=== PATIENT | female | born 1995 | race Caucasian/White ===

== ENCOUNTER → 2017-10-14 15:21 | Outpatient (CLI) | payer BC, MEDICAID, SELFPAY ==
[2017-10-14 19:20] LABS: Chlamydia Trachomatis by PCR Negative (Negative); Neisserai gonorrhoeae by PCR Negative (Negative); Probe Check PASS; Sample Adequacy Control PASS; Specimen Processing Control PASS
[2017-10-20 15:25] LABS: HPV Reflexed? NOT INDICATED
== END ==
PROVIDERS: Visit Provider Obstetrics & Gynecology
DX: Z12.4 Encounter for screening for malignant neoplasm of cervix (principal); Z11.3 Encounter for screening for infections with a predominantly sexual mode of transmission
CPT/HCPCS: 87491; 87591; 88175; G0145

== ENCOUNTER → 2018-11-24 | Outpatient (CLI) | payer BC, OTHER, SELFPAY | END | disposition home or self-care (01) | LOC: LABSPEC 10:52 | PROVIDERS: Visit Provider Obstetrics & Gynecology | DX: Z12.4 Encounter for screening for malignant neoplasm of cervix (principal) ==

== ENCOUNTER → 2021-01-31 | Outpatient (CLI) | payer OTHER, SELFPAY ==
[2021-02-07 19:45] LABS: HPV Reflexed? NOT INDICATED
== END | disposition home or self-care (01) ==
LOC: LABSPEC 15:52
PROVIDERS: PCP Internal Medicine; Visit Provider Nurse Practitioner Women's Health
DX: Z12.4 Encounter for screening for malignant neoplasm of cervix (principal)
CPT/HCPCS: 88175; G0145

== ENCOUNTER 2021-04-23 07:13 | Outpatient (CLI) | payer OTHER, BC, SELFPAY ==
--- NOTE | 2021-04-23 07:30 | MRI_ITS ---
STUDY: MRI BRAIN WITH AND WITHOUT CONTRAST REASON FOR EXAM: Female, 25 years old. OPTIC DISC EDEMA BILATERAL TECHNIQUE: Standardized multiplanar fat and water weighted pulse sequences were obtained. IV dotarem 23ml was administered for the contrast portion of the examination. COMPARISON: None. FINDINGS: The ventricles so slight slitlike morphology, bilaterally symmetric. Normal white matter tracts of the supratentorial brain. There is no evidence for recent intracranial ischemia or other cause of cytotoxic edema on diffusion weighted imaging (DWI). Normal T2* images of the brain without demonstrated susceptibility artifact. There is no demonstrated hemosiderin stain. Normal bilateral basal ganglia. Normal thalami. There is no extra-axial fluid accumulation. Normal flow voids within the major intracranial circulation suggesting patency by spin echo criteria. Normal venous enhancement. There is no enhancing intra-axial or extra-axial abnormality. Normal meningeal enhancement. Normal vascular enhancement. No abnormal optic disc enhancement. Orbits are notable for mildly increased CSF signal seen within the optic nerve sheath. There is trace flattening of the posterior globe at the optic disc. Normal sella turcica without empty sella. Normal pituitary gland, infundibular stalk, optic chiasm and hypothalamus. Normal tectal plate and pineal gland. Normal midbrain, abdirizak and medulla. Normal cerebellum. Normal basal cisterns. Normal bilateral temporal bones. Normal bilateral internal auditory canals. No demonstrated orbital abnormality, within the constraints of a routine brain study. Normal visualized paranasal sinuses. Normal calvarium and skull base. Normal visualized soft tissue structures. Normal visualized upper cervical spine. MRI/Brain W/WO Contrast IMPRESSION: Findings suggesting a pathologic intracranial hypertension; increased CSF fluid within the optic nerve sheaths and slight flattening the posterior optic discs as well as slitlike morphology of the ventricles. No empty sella. No optic disc enhancement. Electronically Signed: Donn Gallardo DO at 0:31 EST ,
== END 2021-04-23 23:59 | disposition home or self-care (01) ==
PROVIDERS: PCP Internal Medicine; Visit Provider Ophthalmology
DX: H47.10 Unspecified papilledema (principal)
CPT/HCPCS: 70553; A9575

== ENCOUNTER 2021-05-11 08:55 | Outpatient (CLI) | payer OTHER, BC, SELFPAY ==
[2021-05-11 09:15] LABS: Hematocrit 41.4 % (37-47); Hemoglobin 13.6 g/dL (12.0-15.0); Mean Corp Hgb Conc 32.9 g/dL (32-36); Mean Corpuscular Hgb 26.7 pg (27.0-32.0); Mean Corpuscular Volume 81.3 fL (81-99); Mean Platelet Vol. 11.3 fl (6.2-12.0); Platelet Count 215 K/mm3 (150-450); RBC Distribution Width CV 13.3 % (11.6-14.6); RBC Distribution Width SD 39.2 fl (35.1-43.9); Red Blood Count 5.09 M/mm3 (4.2-5.4); White Blood Count 8.2 K/mm3 (4.4-11.0)
--- NOTE | 2021-05-11 09:21 | RAD_ITS ---
PROCEDURE: Fluoroscopic guided Lumbar Puncture. DATE: 05/11/2021 CLINICAL INDICATION: Benign intracranial hypertension PHYSICIAN: Yasmani Dial M.D. MEDICATIONS: 1% lidocaine administered subcutaneously for local anesthesia. ACCESS SITE: Lower posterior back. NEEDLE: 22-gauge spinal needle. SPECIMEN: Approximately 18 mL clear]CSF fluid. FLUOROSCOPY TIME (if supplied): (1:06) minutes/seconds COMPLICATIONS: None immediate. The risks, benefits, and alternatives to the procedure were explained to the patient. The specific risks of bleeding, infection, and neurovascular injury were detailed and accepted. Witnessed informed consent was obtained. The patient was placed on the fluoroscopic table in the prone position. The level for needle entry was determined and marked. The overlying skin was cleaned and prepped in the usual sterile fashion. 2% lidocaine was administered subcutaneously for local anesthesia. Under fluoroscopic guidance a 22-gauge spinal needle was advanced. The thecal sac was entered at the L2-L3 vertebral level. The inner stylet was removed. There was spontaneous flow of clear CSF fluid. Opening pressure was 24 mm. The patient was placed in a reversed Trendelenburg position. Approximately 18 mL of cerebrospinal fluid was collected using gravity. The specimen was collected and submitted to the laboratory for further evaluation. The needle was withdrawn,. Hemostasis was achieved and a sterile dressing placed. The patient tolerated the procedure well without any immediate complications. The patient was placed supine with head elevated and returned to the floor in stable condition. RAD/Dx Lumbar Puncture w/IMG Guide IMPRESSION: Successful fluoroscopic-guided lumbar puncture. Electronically Signed: Yasmani Dial MD at 12:21 EST ,
[2021-05-11 09:43] LABS: ALB/GLOB Ratio 0.8 RATIO (0.9-2.4); AST(SGOT) 12 U/L (15-37); Alanine Aminotransfer ALT/SGPT 22 U/L (13-56); Albumin, Serum 3.4 g/dL (3.2-5.0); Alkaline Phosphatase 106 U/L (45-117); Anion Gap 5 (5-15); BUN 11 mg/dL (7-18); Chloride 107 mmol/L (98-107); Creatinine, Serum 0.91 mg/dL (0.55-1.02); EST Glomerular Filtration Rate 79 mL/min (>60); Est Glom Filt Rate - Afr Amer 96 mL/min (>60); Glucose 90 mg/dL (74-106); Protein, Total 7.4 g/dL (6.4-8.2); Sodium Level 138 mmol/L (136-145); Thyroid Stim Hormone (TSH) 2.26 uIU/mL (0.358-3.74)
[2021-05-11 10:15] VITALS: BP 121/84; PULSE 76; RESP 16; TEMP 36.7; O2SAT 99; BMI 43.4
[2021-05-11] MEDS: Lidocaine 2% (5ml sdv) 5 ML VIAL.MPF INFILT (10:35)
[2021-05-11 11:13] VITALS: BP 113/77; PULSE 70; RESP 16; O2SAT 100
[2021-05-11 12:11] VITALS: BP 129/83; PULSE 66; RESP 16; O2SAT 100
[2021-05-11 12:39] LABS: Glucose Spinal Fluid 50 mg/dL (40-75)
[2021-05-11 12:43] LABS: Appearance CSF (character) CLEAR (Clear); CSF Color COLORLESS (Colorless); Tested Tube # 4
[2021-05-11 12:44] LABS: RBC Count, Spinal Fluid 0 /mm-3 (None seen); White Count, CSF 0 /mm-3 (0 - 5)
[2021-05-11 13:47] LABS: Body Fluid QC Type(s) BF1Q,BF2Q
[2021-05-15 10:14] LABS: Pathologist Review Reviewed
== END 2021-05-11 23:59 | disposition home or self-care (01) ==
PROVIDERS: PCP Internal Medicine; Referring Provider Psychiatry & Neurology Neurology; Visit Provider Psychiatry & Neurology Neurology
DX: G93.2 Benign intracranial hypertension (principal)
CPT/HCPCS: 36415; 62328; 80053; 82945; 84157; 84443; 85027; 87070; 87205; 89050; 89051

== ENCOUNTER 2021-05-14 09:16 | Emergency (ER) | payer OTHER, BC, SELFPAY ==
[2021-05-14 09:16] VITALS: BP 143/96; PULSE 83; RESP 14; TEMP 36.2; O2SAT 95; BMI 43.0
[2021-05-14] MEDS: 0.9% Normal Saline 1,000 ML 999 ML IV (09:58)
[2021-05-14] MEDS: DiphenhydrAMINE 50 MG/ML Syringe 25 MG IV (09:59)
[2021-05-14] MEDS: Metoclopramide 10 MG/2 ML Vial IV (09:59)
[2021-05-14] MEDS: HYDROmorphone 0.5 MG/0.5 ML SYRINGE IV (09:59)
--- NOTE | 2021-05-14 10:08 | EDS_ITS ---
HPI History of Present Illness Chief Complaint: Headache Narrative Narrative: Patient presents with a headache that started yesterday, 2 days ago she had a lumbar puncture for intracranial hypertension. The headache is worse when she stands up. No fevers or chills. No vision changes. She has no back pain. She has no neck pain or stiffness. [facility] Medical History Chronic headaches Seasonal allergies Home Medications levonorgestrel 20 mcg/24 hours (7 yrs) 52 mg intrauterine device 1 insert I NTRAUTERINE ONCE 01/31/21 [History Last Taken Unknown] acetazolamide 500 mg capsule,extended release 500 mg PO .COMPLEX #60 cap 05/03/21 [Rx Last Taken Unknown] Allergy/AdvReac Type Severity Reaction Status Date / Time No Known Allergies Allergy Verified 05/14/21 09:18 Family History Mother Thyroid disorder Grandfather Thyroid disorder Grandmother Lung cancer Other Arthritis Blood clot in vein Cancer Diabetes High cholesterol Hypertension Tourette syndrome Social History household members: significant other and children number of children: 1 current occupational status: employed 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 history of recent travel: No sexually active: Yes Smoking Status: Never smoker alcohol intake: current alcohol intake frequency: a few times a month substance use type: does not use well-balanced diet: daily or most days caffeine: No seatbelt use: always do you feel safe at home: Yes additional social history: nirmala - Agustin GRULLON Narrative Past medical history: Reviewed Medications: Reviewed Social history: Noncontributory Review of systems: All systems negative except as indicated General: No fever Eyes: No visual changes ENT: No upper airway congestion, normal voice Neck: No neck pain Cardiovascular: No chest pain Respiratory: No shortness of breath or cough Gastrointestinal: No abdominal pain, nausea vomiting or diarrhea Genitourinary: No dysuria Musculoskeletal: Denies myalgias no difficulty with ambulation Skin: No rash Neurological: Headache as in HPI Psych: No recent behavioral changes Hematologic: No easy bleeding or easy bruising EXAM Physical Exam Narrative Exam Narrative: Physical exam General: Patient appears uncomfortable Head: Normocephalic, Atraumatic Eyes: Conjunctiva not pale ENT: Moist mucous membranes Neck: Supple, Nontender, No lymphadenopathy Cardiovascular: Regular rate, Regular rhythm Respiratory: No distress, CTA bilaterally Abdomen: Soft, Nontender, Nondistended Back: Nontender, Normal Inspection. Negative for: CVA tenderness Extremities: Nontender, No edema Skin: Normal color, No rash Neurological: Alert, Normal Strength, Normal Sensation Psychological: Normal affect Const Vital Signs: 05/14/21 09:16 Temperature 97.1 F L Temperature Source Temporal Pulse Rate 83 Respiratory Rate 14 Blood Pressure 143/96 H Blood Pressure Mean 111 Pulse Ox 95 Oxygen Delivery Method Room Air MDM MDM MDM Narrative Medical decision making narrative: Patient is given IV medications with only some improvement, I also gave her caffeine. I discussed with anesthesia at this time they are unable to do a blood patch, I then discussed with Dr. Knight from pain management who will do the blood patch in his office today. I will send the patient there. Discharge Plan Triage Chief Complaint: Headache ED Provider: Deion Saleem Dx/Rx/DC Orders Clinical Impression: Headache Instructions: Understanding Headache Pain Prescriptions: No Action Mirena 20 mcg/24 hours (7 yrs) 52 mg intrauterine device 1 insert intrauterine ONCE RF: 0 acetazolamide 500 mg capsule, extended release 500 mg PO .COMPLEX Qty: 60 RF: 2 Primary Care Provider: Elzbieta Deal Referrals: Elzbieta Deal MD [Primary Care Provider] - Leena Knight MD [STAFF PHYSICIAN] - 1 Day (go directly to Dr. Ang's office ) Disposition Disposition: Home, Self Care
[2021-05-14] MEDS: Caffeine 200 MG Tablet 400 MG PO (10:40)
[2021-05-14 10:59] VITALS: PULSE 80; RESP 16
== END 2021-05-14 11:00 | disposition home or self-care (01) ==
PROVIDERS: Emergency Provider Emergency Medicine; PCP Internal Medicine; Visit Provider Emergency Medicine
DX: R51.9 Headache, unspecified (principal); Z98.890 Other specified postprocedural states
CPT/HCPCS: 96361; 96374; 96375; 99284; J7030; A4216

== ENCOUNTER 2021-05-17 07:22 | Outpatient (CLI) | payer OTHER, BC, SELFPAY ==
--- NOTE | 2021-05-17 07:25 | MRI_ITS ---
STUDY: EXAMINATION - MRV BRAIN WITHOUT CONTRAST REASON FOR EXAM: Female, 25 years old. Benign intracranial hypertension, HEADACHES, RECENT LUMBAR PUNCTURE TECHNIQUE: 3D [id number] (TOF) imaging was performed in a 1.5 jennifer MRI scanner. COMPARISON: None. FINDINGS: Normal flow within the superior sagittal sinus. 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 Normal flow within the superficial cortical veins. Normal flow within the paired internal cerebral veins, vein of Tereso and straight sinus. Normal flow within the bilateral transverse and sigmoid sinuses. Normal flow within the bilateral jugular bulbs. MRI/MRV Head Without Contrast IMPRESSION: Normal unenhanced MRV of the brain. Electronically Signed: Domenic Johns MD at 10:25 EST ,
== END 2021-05-17 23:59 | disposition home or self-care (01) ==
LOC: MRI 07:25
PROVIDERS: PCP Internal Medicine; Referring Provider Psychiatry & Neurology Neurology; Visit Provider Psychiatry & Neurology Neurology
DX: G93.2 Benign intracranial hypertension (principal)
CPT/HCPCS: 70544

== ENCOUNTER → 2023-03-26 | Outpatient (CLI) | payer MEDICAID, SELFPAY ==
--- OUTSIDE RECORDS SUMMARY | 2023-03-26 11:18 | XMS RPT_ITS | CCD ---
Author Name Unknown Address [address] [place] [address] Organization [facility] Care Team Providers Care Engine Pilot Name Role Phone Unavailable Unavailable Unavailable Francisco Ghotra Unavailable Unavailable Francisco Ghotra Unavailable Unavailable Conn, Asha C Unavailable Unavailable Conn, Asha C Unavailable Unavailable Matthews, Makayla L Unavailable Unavailable Matthews, Makayla L Unavailable Unavailable Rings, Donovan Unavailable Unavailable Rings, Donovan Unavailable Unavailable No Doctor Assigned, Nodr Unavailable Unavail able No, Physician Primary Care Provider Unavailabl e Kandi Shah Primary Care Provider [phone] Kandi Shah Primary Care Provider ScammonKandi Primary Care Provider Elzbieta Deal Unavailable Unavailable Spring Kandi MUNIZ Primary Care Provider Elzbieta Deal MD Primary Care Provider MONICA, RAQUEL SABRY Referring Unavailable WARNES, ANTOINETTE Attending Unavailable MONICA, RAQUEL SABRY Admitting Unavailable [facility] Primary Care Unavailable MONICA, RAQUEL SABRY Admitting Unavailable ISSAC IBARRA Attending Unavailable [facility] Primary Care Unavailable MONICA, RAQUEL SABRY Referring Unavailable MONICA, RAQUEL SABRY Attending Unavailable MONICA, RAQUEL SABRY Referring Unavailable [facility] Primary Care Unavailable WARNES, ANTOINETTE Attending Unavailable MONICA, RAQUEL SABRY Admitting Unavailable [facility] AT [facility] Primary Care Unavailable MONICA, RAQUEL SABRY Referring Unavailable MONICA, RAQUEL SABRY Referring Unavailable MONICA, RAQUEL SABRY Admitting Unavailable YANI MCKINNEY Attending Unavailable [facility] Unavailable MONICA, RAQUEL SABRY Referring Unavailable MONICA, RAQUEL SABRY Admitting Unavailable ISSAC IBARRA Attending Unavailable [facility] Unavailable ANTOINETTE DAILY Attending Unavailable MONICA, RAQUEL SABRY Referring Unavailable MONICA, RAQUEL SABRY Admitting Unavailable [facility] Unavailable MONICA, RAQUEL SABRY Referring Unavailable EDU MIX Attending Unavailable MONICA, RAQUEL SABRY Admitting Unavailable [facility] Unavailable MONICA, RAQUEL SABRY Referring Unavailable MONICA, RAQUEL SABRY Admitting Unavailable ISSAC IBARRA Attending Unavailable [facility] Unavailable [facility] Unavailable Unavailable Unavailable [facility] SHERRIE FRAZIER Attending Unava ilable [facility] Unavailable DIDI, TABBITHA IGNACIO Referring Unava ilable [facility] Unavailable IDDI, TABBITHA IGNACIO Admitting Unava ilable [facility] Unavailable LUKE TOLBERT Attending Unava ilable KIRAN PUTNAM Attending Unavailable [facility] Unavailable PERRY PONCE JR. Attending Unavailable [facility] Unavailable [facility] Unavailable PERRY PONCE JR. Attending Unavailable Allergies Allergy Classification Reported Allergen(s) Allergy Type Date of Onset Reaction(s) Facility (1 source) No Known Medication Allergies; Translations: [No Known Medication Allergies] Propensity to adverse reactions to drug (disorder) [facility] Repository (20 sources) topiramate; Translations: [topiramate] Drug Allergy 3 Rash [facility] Medications Current Medications Medication Drug Class(es) Dates Sig (Normalized) Sig (Original) acetaminophen 325 mg oral tablet (20 sources) take 2 tablets by mouth every six hours as needed for pain acetaminophen (TYLENOL) 325 MG tablet Take 2 (two) tablets (650 mg total) by mouth every 6 (six) hours as needed for pain . 0 Active amoxicillin 875 mg / clavulanate 125 mg oral tablet (1 source) Penicillin-class Antibacterial Start: 04-30-2018 End: 05-10-2018 take 1 tablet by mouth twice daily amoxicillin-clavul anate (AUGMENTIN) 875-125 mg per tablet Indications: Acute left otitis media , Frontal sinusitis, unspecified chronicity Take 1 (one) tablet by mouth 2 (two) times a day for 10 days . 20 tablet 0 04/30/2018 05/10/2018 Active benzonatate 100 mg oral capsule (20 sources) Non-narcotic Antitussive Start: 02-01-2019 benzonatate (Tessalon Perles) 100 MG capsule Indications: Upper respiratory tract infection, unspecified type Take one or two capsules every 8 hours as needed for cough. Do not chew. . 60 capsule 1 02/01/2019 Active Completed/Discontinued Medications Medication Drug Class(es) Dates Sig (Normalized) Sig (Original) 12 hr acetaZOLAMIDE 500 mg extended release oral capsule (19 sources) Carbonic Anhydrase Inhibitor Start: 09-04-2021 take 1 capsule by mouth every twelve hours acetaZOLAMIDE ER 500 MG Oral Capsule Extended Release 12 Hour TAKE 1 CAPSULE EVERY 12 HOURS- FROM [facility] Quantity: 0 Refills: 0 Ordered: 04-Sep-2021 DO Start : 04-Sep-2021 Active [facility] Problems Active Problems Problem Classification Problem Date Documented Da te Episodic/Chronic Allergic reactions (1 source) Contact dermatitis due to plants; Translations: [Unspecified contact dermatitis due to plants, except food] Episodic Anxiety disorders (13 sources) Anxiety state; Translations: [Anxiety state, unspecified] Chronic Diseases of white blood cells (12 sources) Leukocytosis; Translations: [Leukocytosis, unspecified] Chronic Fracture of lower limb (20 sources) Metatarsal bone fracture; Translations: [Fracture of unspecified metatarsal bone(s), unspecified foot, initial encounter for closed fracture] 08-27-2020 Episodic Headache; including migraine (12 sources) Migraine without aura; Translations: [Chronic migraine without aura, without mention of intractable migraine without mention of status migrainosus] Chronic Headache; including migraine (20 sources) Headache; Translations: [Headache] 08-27-2020 Episodic Immunizations and screening for infectious disease (1 source) Contact with and (suspected) exposure to other viral communicable diseases; Translations: [Exposure to COVID-19 virus] Episodic Influenza (1 source) Influenza due to Influenza A virus; Translations: [Influenza A] Episodic Menstrual disorders (1 source) Missed period; Translations: [Missed period] Chronic Nutritional deficiencies (20 sources) Vitamin D deficiency; Translations: [Vitamin D deficiency, unspecified] Onset: 08-20-2018 08-20-2018 Chronic Other connective tissue disease (1 source) Foot pain; Translations: [Pain in right foot] Episodic Other connective tissue disease (20 sources) Pain in right foot; Translations: [Pain in right foot] Episodic Other connective tissue disease (1 source) 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; Translations: [Plantar fascial fibromatosis] Episodic Other connective tissue disease (1 source) Pain in left foot; Translations: [Pain in left foot] Episodic Other connective tissue disease (10 sources) Spasm; Translations: [Spasm of muscle] Episodic Other eye disorders (3 sources) Swelling around eyes; Translations: [Other specified disorders of eye and adnexa] 09-24-2022 Episodic Other hematologic conditions (12 sources) Microcytosis; Translations: [Other abnormality of red blood cells] Episodic Other nervous system disorders (12 sources) Benign intracranial hypertension; Translations: [Benign intracranial hypertension] Chronic Other non-traumatic joint disorders (2 sources) Acute ankle pain; Translations: [Pain in right ankle and joints of right foot] Episodic Other non-traumatic joint disorders (20 sources) Swollen ankle region; Translations: [Effusion, unspecified ankle] 08-27-2020 Episodic Other non-traumatic joint disorders (2 sources) Pain in right ankle and joints of right foot; Translations: [Pain in right ankle and joints of right foot] Onset: 01-21-2023 Episodic Other nutritional; endocrine; and metabolic disorders (20 sources) Body mass index 40+ - severely obese; Translations: [Body mass index (BMI) 40.0-44.9, adult] Onset: 08-18-2018 08-18-2018 Chronic Other nutritional; endocrine; and metabolic disorders (20 sources) Cholesterol level - finding; Translations: [Lipoprotein deficiency] Onset: 09-15-2018 09-15-2018 Chronic Other nutritional; endocrine; and metabolic disorders (20 sources) Obesity; Translations: [Obesity, unspecified] 08-27-2020 Chronic Other nutritional; endocrine; and metabolic disorders (3 sources) Weight gain; Translations: [Abnormal weight gain] Episodic Other skin disorders (13 sources) Loss of hair; Translations: [Alopecia, unspecified] Episodic Other skin disorders (2 sources) Folliculitis; Translations: [Follicular disorder, unspecified] Episodic Other upper respiratory disease (1 source) Nasal congestion; Translations: [Nasal congestion] Episodic Other upper respiratory infections (4 sources) Frontal sinusitis; Translations: [Sore throat symptom] Episodic Otitis media and related conditions (1 source) Acute left otitis media; Translations: [Acute left otitis media] Episodic Residual codes; unclassified (1 source) Influenza-like symptoms; Translations: [Flu-like symptoms] Episodic Screening and history of mental health and substance abuse codes (10 sources) Screening - NAD; Translations: [Screening for depression] Episodic Spondylosis; intervertebral disc disorders; other back problems (20 sources) Low back pain; Translations: [Lumbago] Episodic Sprains and strains (20 sources) Sprain of right foot; Translations: [Unspecified sprain of right foot, initial encounter] Onset: 01-21-2023 08-27-2020 Episodic Syncope (2 sources) Syncope and collapse; Translations: [Syncope and collapse] Onset: 09-22-2022 Episodic Unclassified (3 sources) Screening status; Translations: [Screening for heart disease] Onset: 08-18-2018 08-18-2018 Past or Other Problems Problem Classification Problem Date Documented Date Episodic/Chronic Malaise and fatigue (20 sources) Fatigue; Translations: [Other fatigue] Onset: 08-18-2018 08-18-2018 Episodic Other eye disorders (2 sources) Other specified disorders of eye and adnexa; Translations: [Other specified disorders of eye and adnexa] Onset: 09-24-2022 Episodic Other inflammatory condition of skin (20 sources) Itching of eye; Translations: [Other general symptoms and signs] Onset: 09-15-2018 09-15-2018 Episodic Other screening for suspected conditions (not mental disorders or infectious disease) (20 sources) Patient encounter status; Translations: [Encounter for screening for cardiovascular disorders] Onset: 08-18-2018 08-18-2018 Episodic Residual codes; unclassified (1 source) Needs influenza immunization; Translations: [Need for influenza vaccination] Episodic Superficial injury; contusion (8 sources) Abrasion, right lower leg, initial encounter; Translations: [Abrasion or friction burn of hip, thigh, leg, and ankle, without mention of infection] Onset: 09-22-2022 Episodic Unclassified (3 sources) Patient encounter status; Translations: [Screening for heart disease] Onset: 08-18-2018 08-18-2018 NEGATED: Highlighted row has not occurred!Residual codes; unclassified (2 sources) Disease Episodic Results Test Name Value Interpretation Reference Range Facil ity Vital Signs Date Time Vital Sign Value Performing Clinician [facility] 02-19-2023 08:52-0500 Body temperature 97.9 [degF] Perry Ponce Jr., DPM Work Phone: [facility] 02-19-2023 08:52-0500 Diastolic blood pressure 66 mm[Hg] Perry Ponce Jr., DPM Work Phone: [facility] 02-19-2023 08:52-0500 Heart rate 84 /min Perry Ponce Jr., DPM Work Phone: [facility] 02-19-2023 08:52-0500 Systolic blood pressure 97 mm[Hg] Perry Ponce Jr., DPM Work Phone: [facility] 01-29-2023 09:30-0500 Body temperature 98.6 [degF] Perry Ponce Jr., DPM Work Phone: [facility] 01-29-2023 09:30-0500 Diastolic blood pressure 70 mm[Hg] Perry Ponce Jr., DPM Work Phone: [facility] 01-29-2023 09:30-0500 Heart rate 92 /min Perry Ponce Jr., DPM Work Phone: [facility] 01-29-2023 09:30-0500 Systolic blood pressure 103 mm[Hg] Perry Ponce Jr., DPM Work Phone: [facility] 01-21-2023 17:27-0500 Body mass index (BMI) [Ratio] 34.28 kg/m2 Luke Tolbert CNP Work Phone: [facility] 01-21-2023 17:27-0500 Body temperature 98.71 [degF] Luke Tolbert CNP Work Phone: [facility] 01-21-2023 17:27-0500 Body weight 87.77 kg Luke Tolbert CNP Work Phone: [facility] 01-21-2023 17:27-0500 Diastolic blood pressure 80 mm[Hg] Luke Tolbert CNP Work Phone: [facility] 01-21-2023 17:27-0500 Heart rate 83 /min Luke Tolbert CNP Work Phone: [facility] 01-21-2023 17:27-0500 Respiratory rate 16 /min Luke Tolbert CNP Work Phone: [facility] 01-21-2023 17:27-0500 SaO2% (BldA) [Mass fraction] 98 % Luke Tolbert CNP Work Phone: [facility] 01-21-2023 17:27-0500 Systolic blood pressure 114 mm[Hg] Luke Tolbert CNP Work Phone: [facility] 09-24-2022 11:27-0400 Body height 160 cm Kiran Putnam DO Work Phone: [facility] 09-24-2022 11:27-0400 Body mass index (BMI) [Ratio] 33.66 kg/m2 Kiran Putnam DO Work Phone: [facility] 09-24-2022 11:27-0400 Body temperature 98.2 [degF] Kiran Putnam DO Work Phone: [facility] 09-24-2022 11:27-0400 Body weight 86.18 kg Kiran Putnam DO Work Phone: [facility] 09-24-2022 11:27-0400 Diastolic blood pressure 78 mm[Hg] Kiran Putnam DO Work Phone: [facility] 09-24-2022 11:27-0400 Heart rate 84 /min Kiran Putnam DO Work Phone: [facility] 09-24-2022 11:27-0400 Respiratory rate 16 /min Kiran Putnam DO Work Phone: [facility] 09-24-2022 11:27-0400 SaO2% (BldA) [Mass fraction] 98 % Kiran Putnam DO Work Phone: [facility] 09-24-2022 11:27-0400 Systolic blood pressure 107 mm[Hg] Kiran Putnam DO Work Phone: [facility] 10-09-2021 13:09-0400 Body height 160.02 cm Elzbieta Deal Work Phone: [facility] Work Phone: 10-09-2021 13:09-0400 Body mass index (BMI) [Ratio] 38.26 kg/m2 Elzbieta Allredabi Work Phone: [facility] Work Phone: 10-09-2021 13:09-0400 Body surface area Derived from formula 2 m2 Elzbieta Allredabi Work Phone: [facility] Work Phone: 10-09-2021 13:09-0400 Body weight 97.98 kg Elzbieta Allredabi Work Phone: [facility] Work Phone: 10-09-2021 13:09-0400 Diastolic blood pressure 76 mm[Hg] Elzbieta Allredabi Work Phone: [facility] Work Phone: 10-09-2021 13:09-0400 Heart rate 87 /min Elzbieta Allredabi Work Phone: [facility] Work Phone: 10-09-2021 13:09-0400 SaO2% (BldA) [Mass fraction] 99 % Elzbieta Deal Work Phone: [facility] Work Phone: 10-09-2021 13:09-0400 Systolic blood pressure 116 mm[Hg] Elzbieta Deal Work Phone: [facility] Work Phone: 09-18-2021 13:35-0400 Body height 160.02 cm Elzbieta Deal Work Phone: [facility] Work Phone: 09-18-2021 13:35-0400 Body mass index (BMI) [Ratio] 38.79 kg/m2 Elzbieta Deal Work Phone: [facility] Work Phone: 09-18-2021 13:35-0400 Body surface area Derived from formula 2.01 m2 Elzbieta Deal Work Phone: [facility] Work Phone: 09-18-2021 13:35-0400 Body weight 99.33 kg Elzbitea Deal Work Phone: [facility] Work Phone: 09-18-2021 13:35-0400 Diastolic blood pressure 76 mm[Hg] Elzbieta Deal Work Phone: [facility] Work Phone: 09-18-2021 13:35-0400 Heart rate 84 /min Elzbieta Deal Work Phone: [facility] Work Phone: 09-18-2021 13:35-0400 SaO2% (BldA) [Mass fraction] 99 % Elzbieta Deal Work Phone: [facility] Work Phone: 09-18-2021 13:35-0400 Systolic blood pressure 110 mm[Hg] Elzbieta Deal Work Phone: [facility] Work Phone: 09-04-2021 12:07-0400 Body height 160.02 cm Elzbieta Deal Work Phone: [facility] Work Phone: 09-04-2021 12:07-0400 Body mass index (BMI) [Ratio] 39.15 kg/m2 Elzbieta Deal Work Phone: [facility] Work Phone: 09-04-2021 12:07-0400 Body surface area Derived from formula 2.02 m2 Elzbieta Deal Work Phone: [facility] Work Phone: 09-04-2021 12:07-0400 Body weight 100.25 kg Elzbieta Deal Work Phone: [facility] Work Phone: 09-04-2021 12:07-0400 Diastolic blood pressure 76 mm[Hg] Elzbieta Deal Work Phone: [facility] Work Phone: 09-04-2021 12:07-0400 Heart rate 83 /min Elzbieta Deal Work Phone: [facility] Work Phone: 09-04-2021 12:07-0400 SaO2% (BldA) [Mass fraction] 98 % Elzbieta Deal Work Phone: [facility] Work Phone: 09-04-2021 12:07-0400 Systolic blood pressure 108 mm[Hg] Elzbieta Allredabi Work Phone: [facility] Work Phone: 07-03-2021 18:05-0400 Body height 160 cm Asha Morocho [employer] SP[employer]NER Work Phone: [facility] 07-03-2021 18:05-0400 Body mass index (BMI) [Ratio] 41.81 kg/m2 Asha Morocho [employer] Work Phone: [facility] 07-03-2021 18:05-0400 Body temperature 97.59 [degF] Asha Morocho [employer]NER Work Phone: [facility] 07-03-2021 18:05-0400 Body weight 107.05 kg Asha Morocho [employer] Work Phone: [facility] 07-03-2021 18:05-0400 Diastolic blood pressure 82 mm[Hg] Asha Morocho [employer]NER Work Phone: [facility] 07-03-2021 18:05-0400 Heart rate 75 /min Asha Morocho [employer] Work Phone: [facility] 07-03-2021 18:05-0400 Respiratory rate 14 /min Asha Morocho [employer] Work Phone: [facility] 07-03-2021 18:05-0400 SaO2% (BldA) [Mass fraction] 98 % Asha Morocho [employer]NER Work Phone: [facility] 07-03-2021 18:05-0400 Systolic blood pressure 113 mm[Hg] Asha Morocho [employer]NER Work Phone: [facility] 01-21-2021 09:36-0500 Body height 157.5 cm Zuri Barajas MD Work Phone: [facility] 01-21-2021 09:36-0500 Body mass index (BMI) [Ratio] 43.9 kg/m2 Zuri Barajas MD Work Phone: [facility] 01-21-2021 09:36-0500 Body temperature 98.1 [degF] Zuri Barajas MD Work Phone: [facility] 01-21-2021 09:36-0500 Body weight 108.86 kg Zuri Barajas MD Work Phone: [facility] 01-21-2021 09:36-0500 Diastolic blood pressure 78 mm[Hg] Zuri Barajas MD Work Phone: [facility] 01-21-2021 09:36-0500 Heart rate 88 /min Zuri Barajas MD Work Phone: [facility] 01-21-2021 09:36-0500 Respiratory rate 16 /min Zuri Barajsa MD Work Phone: [facility] 01-21-2021 09:36-0500 SaO2% (BldA) [Mass fraction] 97 % Zuri Barajas MD Work Phone: [facility] 01-21-2021 09:36-0500 Systolic blood pressure 122 mm[Hg] Zuri Barajas MD Work Phone: [facility] 11-06-2020 07:04-0400 Body temperature 98.4 [degF] Raquel Baldwin Place DPM Work Phone: [facility] 11-06-2020 07:04-0400 Diastolic blood pressure 68 mm[Hg] Raquel Monica DPM Work Phone: [facility] 11-06-2020 07:04-0400 Heart rate 95 /min Raquel Monica DPM Work Phone: [facility] 11-06-2020 07:04-0400 Systolic blood pressure 115 mm[Hg] Raquel Monica DPM Work Phone: [facility] 10-02-2020 07:03-0400 Body temperature 97.9 [degF] Raquel [address] DPM Work Phone: [facility] 10-02-2020 07:03-0400 Diastolic blood pressure 70 mm[Hg] Raquel [address] Place DPM Work Phone: [facility] 10-02-2020 07:03-0400 Heart rate 96 /min Raquel Monica DPM Work Phone: [facility] 10-02-2020 07:03-0400 Systolic blood pressure 109 mm[Hg] Raquel [address] Place DPM Work Phone: [facility] 09-04-2020 07:12-0400 Body height [address] DPM Work Phone: [facility] 09-04-2020 07:12-0400 Body mass index (BMI) [Ratio] 35.43 kg/m2 Raquel Monica DPM Work Phone: [facility] 09-04-2020 07:12-0400 Body temperature 98.2 [degF] Raquel Baldwin Place DPM Work Phone: [facility] 09-04-2020 07:12-0400 Body weight 90.72 kg Raquel Monica DPM Work Phone: [facility] 09-04-2020 07:12-0400 Diastolic blood pressure 80 mm[Hg] Raquel [address] DPM Work Phone: [facility] 09-04-2020 07:12-0400 Heart rate 82 /min Raquel [address] DPM Work Phone: [facility] 09-04-2020 07:12-0400 Systolic blood pressure 117 mm[Hg] Raquel Baldwin Place DPM Work Phone: [facility] 08-28-2020 17:02-0400 Body height 160 cm Chinyere Morrison [employer]NER Work Phone: [facility] 08-28-2020 17:02-0400 Body mass index (BMI) [Ratio] 35.43 kg/m2 Chinyere Morrison [employer] Work Phone: [facility] 08-28-2020 17:02-0400 Body temperature 98.29 [degF] Chinyere Mayaid W[employer]NER Work Phone: [facility] 08-28-2020 17:02-0400 Body weight 90.72 kg Chinyere Morrison [employer]NER Work Phone: [facility] 08-28-2020 17:02-0400 Diastolic blood pressure 71 mm[Hg] Chinyere Morrison W[employer] SP[employer]NER Work Phone: [facility] 08-28-2020 17:02-0400 Heart rate 85 /min Chinyere Morrison [employer]NER Work Phone: [facility] 08-28-2020 17:02-0400 Respiratory rate 16 /min Chinyere Morrison [employer]NER Work Phone: [facility] 08-28-2020 17:02-0400 SaO2% (BldA) [Mass fraction] 97 % Chinyere Morrison [employer]NER Work Phone: [facility] 08-28-2020 17:02-0400 Systolic blood pressure 112 mm[Hg] Chinyere Morrison W[employer]NER Work Phone: [facility] 08-21-2020 12:55-0400 Diastolic blood pressure 58 mm[Hg] Raquel Baldwin Place DPM Work Phone: [facility] 08-21-2020 12:55-0400 Systolic blood pressure 116 mm[Hg] Raquel Baldwin Place DPM Work Phone: [facility] 08-14-2020 18:14-0400 Body height 160 cm Chinyere Morrison [employer]NER Work Phone: [facility] 08-14-2020 18:14-0400 Body mass index (BMI) [Ratio] 35.43 kg/m2 Chinyere Morrison [employer] Work Phone: [facility] 08-14-2020 18:14-0400 Body temperature 97.5 [degF] Chinyere Morrison [employer]NER Work Phone: [facility] 08-14-2020 18:14-0400 Body weight 90.72 kg Chinyere Morrison [employer] Work Phone: [facility] 08-14-2020 18:14-0400 Diastolic blood pressure 84 mm[Hg] Chinyere Morrison [employer]NER Work Phone: [facility] 08-14-2020 18:14-0400 Heart rate 82 /min Chinyereenoc Morrison W[employer]NER Work Phone: [facility] 08-14-2020 18:14-0400 Respiratory rate 16 /min Chinyere Morrison [employer] Work Phone: [facility] 08-14-2020 18:14-0400 SaO2% (BldA) [Mass fraction] 97 % Chinyere Morrison [employer] Work Phone: [facility] 08-14-2020 18:14-0400 Systolic blood pressure 120 mm[Hg] Chinyere Morrison [employer]NER Work Phone: [facility] 09-06-2019 12:42-0400 BMI (Body Mass Index) 45.95 kg/m2 Elzbieta Deal [facility] Work Phone: 09-06-2019 12:42-0400 Body weight 117.65 kg Elzbieta Deal [facility] Work Phone: 09-06-2019 12:42-0400 BP Diastolic 80 mm[Hg] Elzbieta Deal [facility] Work Phone: 09-06-2019 12:42-0400 BP Systolic 114 mm[Hg] Elzbieta Deal [facility] Work Phone: 09-06-2019 12:42-0400 BSA (Body Surface Area) 2.16 m2 Elzbieta Deal [facility] Work Phone: 09-06-2019 12:42-0400 Height 160.02 cm Elzbieta Deal [facility] Work Phone: 09-06-2019 12:42-0400 Pulse (Heart Rate) 72 /min Elzbietaiain Deal [facility] Work Phone: 02-18-2019 16:16-0500 BMI (Body Mass Index) 43.93 kg/m2 [facility] 02-18-2019 16:16-0500 Body Temperature 98.4 [degF] [facility] 02-18-2019 16:16-0500 Body weight 112.49 kg [facility] 02-18-2019 16:16-0500 BP Diastolic 81 mm[Hg] [facility] 02-18-2019 16:16-0500 BP Systolic 111 mm[Hg] [facility] 02-18-2019 16:16-0500 Height 160 cm [facility] 02-18-2019 16:16-0500 Pulse (Heart Rate) 95 /min [facility] 02-18-2019 16:16-0500 Pulse Oximetry 98 % [facility] 02-18-2019 16:16-0500 Respiratory Rate 18 /min [facility] 02-01-2019 17:47-0500 BMI (Body Mass Index) 31.89 kg/m2 [facility] 02-01-2019 17:47-0500 Body Temperature 98.6 [degF] [facility] 02-01-2019 17:47-0500 Body weight 81.65 kg [facility] 02-01-2019 17:47-0500 BP Diastolic 76 mm[Hg] [facility] 02-01-2019 17:47-0500 BP Systolic 104 mm[Hg] [facility] 02-01-2019 17:47-0500 Height 160 cm [facility] 02-01-2019 17:47-0500 Pulse (Heart Rate) 89 /min [facility] 02-01-2019 17:47-0500 Pulse Oximetry 97 % [facility] 02-01-2019 17:47-0500 Respiratory Rate 14 /min [facility] 09-15-2018 08:15-0400 BMI (Body Mass Index) 42.16 kg/m2 [facility] 09-15-2018 08:15-0400 Body Temperature 98.71 [degF] [facility] 09-15-2018 08:15-0400 Body weight 107.96 kg [facility] 09-15-2018 08:15-0400 BP Diastolic 80 mm[Hg] [facility] 09-15-2018 08:15-0400 BP Systolic 113 mm[Hg] [facility] 09-15-2018 08:15-0400 Height 160 cm [facility] 09-15-2018 08:15-0400 Pulse (Heart Rate) 94 /min [facility] 09-15-2018 08:15-0400 Pulse Oximetry 98 % [facility] 09-15-2018 08:15-0400 Respiratory Rate 18 /min [facility] 08-18-2018 08:43-0400 BMI (Body Mass Index) 42.05 kg/m2 [facility] 08-18-2018 08:43-0400 Body Temperature 98.4 [degF] [facility] 08-18-2018 08:43-0400 BP Diastolic 78 mm[Hg] [facility] 08-18-2018 08:43-0400 BP Systolic 113 mm[Hg] [facility] 08-18-2018 08:43-0400 Height 160 cm [facility] 08-18-2018 08:43-0400 Pulse (Heart Rate) 93 /min [facility] 08-18-2018 08:43-0400 Pulse Oximetry 98 % [facility] 08-18-2018 08:43-0400 Weight 107.67 kg [facility] 04-30-2018 17:57-0500 BMI (Body Mass Index) 34.75 kg/m2 Chinyere Morrison [facility] 04-30-2018 17:57-0500 Body Temperature 99.3 [degF] Chinyere Morrison [facility] 04-30-2018 17:57-0500 BP Diastolic 83 mm[Hg[facility] 17:57-0500 BP Systolic 118 mm[Hg] Chinyere Morrison [facility] 04-30-2018 17:57-0500 Height 157.5 cm Chinyere Morrison [facility] 04-30-2018 17:57-0500 Pulse (Heart Rate) 104 /min Chinyere Morrison [facility] 04-30-2018 17:57-0500 Pulse Oximetry 98 % Chinyere Morrison [facility] 04-30-2018 17:57-0500 Respiratory Rate 18 /min Chinyere Morrison [facility] 04-30-2018 17:57-0500 Weight 86.18 kg Chinyere Morrison [facility] Encounters Encounter Date Encounter Type Care Provider Facility Start: 02-19-2023 End: 02-19-2023 ambulatory PERRY PONCE [facility] Start: 02-19-2023 End: 02-19-2023 Office outpatient visit 15 minutes Perry Zane DPM Work Phone: [facility] Procedures Date Procedure Procedure Detail Performing Clinician Start: 01-29-2023 NURSING COMMUNICATIO N - DO NOT USE IN ORDER SETS Perry Ponce DPM Work Phone: Start: 01-21-2021 Sars-cov-2 detection by dna/rna Zuri Barajas MD Work Phone: Start: 01-21-2021 Iadna streptococcus group a amplified probe tq Zuri Barajas MD Work Phone: Start: 08-14-2020 WOUND CARE Chinyere Morrison [employer] Work Phone: Start: 08-14-2020 End: 08-14-2020 Radex ankle complete minimum 3 views Chinyere Morrison [employer] Work Phone: Start: 09-06-2019 25 hydroxy includes fractions if performed Elzbieta Zacoraabi Start: 09-06-2019 Assay of magnesium Virgen nak Zarrabi Start: 09-06-2019 Assay of thyroid stimulating hormone tsh Elzbieta cora Start: 09-06-2019 Assay of zinc Elzbieta Z arrabi Start: 09-06-2019 Blood count complete auto&auto difrntl wbc Elzbieta Zarr Start: 09-06-2019 Comprehensive metabo lic 2000 panel Elzbieta Zarr Start: 09-06-2019 Gonadotropin chorion ic qualitative Elzbieta Zarr Start: 02-18-2019 Adult depression scr eening assessment [facility] Start: 02-01-2019 Streptococcus pyogen es antigen assay Asha Morocho Work Phone: Start: 04-30-2018 Influenza virus A an tigen assay Chinyere Morrison Work Phone: Start: 04-30-2018 Influenza virus B an tigen assay Chinyere Morrison Work Phone: Start: 06-08-2017 Microscopic observat ion [Identifier] in Cervix by Cyto stain [facility] Start: 06-08-2014 Insertion of intraut erine contraceptive device Elzbieta Zarrnoah Work Phone: End: 06-08-2014 Insertion of intrauterine contraceptive device Elzbieta Abreuyuniel Plan of Treatment Date Care Activity Detail Author Start: 02-19-2023 End: 02-19-2023 Patient encounter procedure 02/19/2023 9:00 AM EST Office Visit [facility] [address] [place] [address] Perry Ponce Jr., DPM [address] [place] [address] [facility] Start: 11-08-2022 Influenza vaccination Sequenti al Influenza Vaccine (#1) [facility] Start: 11-08-2021 Influenza vaccination Sequenti al Influenza Vaccine (Season Ended) [facility] Start: 10-30-2021 FUV, Provider: Elzbieta Deal, Status: Pen, Time: 12:30 PM FUV, Provider: Elzbieta Deal, Status: Pen, Time: 12:30 PM -[facility] Work Phone: Start: 10-15-2021 PTRECHADUL, Provider : Maria Fernanda Prieto, Status: Pen, Time: 3:45 PM PTRECHADUL, Provider: Maria Fernanda Prieto, Status: Pen, Time: 3:45 [facility]: Start: 10-11-2021 PTFUADULT4, Provider : Maria Fernanda Prieto, Status: Pen, Time: 4:15 PM PTFUADULT4, Provider: Maria Fernanda Prieto, Status: Pen, Time: 4:15 PM [facility] Work Phone: Start: 10-09-2021 FUV, Provider: Elzbieta Deal, Status: Pen, Time: 1:00 PM FUV, Provider: Elzbieta Deal, Status: Pen, Time: 1:00 PM [facility] Work Phone: Start: 10-08-2021 [email or web address], Provider : Maria Fernanda Prieto, Status: Pen, Time: 3:30 PM PTFUADULT4, Provider: Maria Fernanda Prieto, Status: Pen, Time: 3:30 PM [facility] Work Phone: Start: 10-03-2021 PTFUADULT4, Provider : Maria Fernanda Prieto, Status: Pen, Time: 3:30 PM PTFUADULT4, Provider: Maria Fernanda Prieto, Status: Pen, Time: 3:30 PM [facility] Work Phone: Start: 10-01-2021 PTFUADULT4, Provider : Mari Go, Status: Pen, Time: 7:00 AM PTFUADULT4, Provider: Mari Go, Status: Pen, Time: 7:00 AM [facility] Work Phone: Start: 09-28-2021 PTFUADULT4, Provider : Renay Zamarripa, Status: Pen, Time: 7:45 AM PTFUADULT4, Provider: Renay Zamarripa, Status: Pen, Time: 7:45 AM [facility] Work Phone: Start: 09-25-2021 PTEVAADULT, Provider : Maria Fernanda Prieto, Status: Pen, Time: 3:15 PM PTEVAADULT, Provider: Maria Fernanda Prieto, Status: Pen, Time: 3:15 PM [facility] Work Phone: Start: 09-18-2021 FUV, Provider: Elzbieta Deal, Status: Pen, Time: 1:30 PM FUV, Provider: Elzbieta Deal, Status: Pen, Time: 1:30 PM [facility] Work Phone: Start: 11-08-2020 Influenza vaccination [facility] Start: 11-06-2020 End: 11-06-2020 Patient encounter procedure [facility] Start: 10-31-2020 End: 10-31-2020 Patient encounter procedure [facility] MRI Start: 10-19-2020 End: 10-19-2020 ambulatory [facility] Start: 10-17-2020 End: 10-17-2020 ambulatory [facility] Start: 10-12-2020 End: 10-12-2020 ambulatory [facility] Start: 10-10-2020 End: 10-10-2020 ambulatory [facility] Start: 10-05-2020 End: 10-05-2020 ambulatory [facility] Start: 10-03-2020 End: 10-03-2020 ambulatory [facility] Start: 10-03-2020 End: 10-02-2021 MR Foot Right With Contrast MR Foot Right With Contrast Imaging Routine Right foot sprain, subsequent encounter Right foot pain Expected: 10/03/2020, Expires: 10/02/2021 [facility] Work Phone: Immunizations Immunization Date Immunization Notes Care Provider Shira delcid 02-18-2019 influenza, injectabl e, quadrivalent, preservative free [facility] 02-18-2019 influenza, seasonal, injectable Elzbieta Zarrabi Work Phone: [facility] Work Phone: 02-18-2019 flu vacc [id number] 6mos up,PF, sdv (FLUZONE QUAD) injection [facility] 09-29-2000 diphtheria, tetanus toxoids and acellular pertussis vaccine [facility] 09-29-2000 diphtheria, tetanus toxoids and acellular pertussis vaccine, unspecified formulation Elzbieta Zarrabi Work Phone: [facility] Work Phone: 09-29-2000 measles, mumps and rubella virus vaccine [facility] 09-29-2000 poliovirus vaccine, inactivated [facility] 02-28-1997 diphtheria, tetanus toxoids and acellular pertussis vaccine [facility] 02-28-1997 diphtheria, tetanus toxoids and acellular pertussis vaccine, unspecified formulation Elzbieta Zarrabi Work Phone: [facility] Work Phone: 02-28-1997 measles, mumps and rubella virus vaccine [facility] 08-30-1996 hepatitis B vaccine, pediatric or pediatric/adolescent dosage [facility] 05-31-1996 diphtheria, tetanus toxoids and acellular pertussis vaccine [facility] 05-31-1996 diphtheria, tetanus toxoids and acellular pertussis vaccine, unspecified formulation Elzbieta Zarrabi Work Phone: [facility] Work Phone: 05-31-1996 haemophilus influenz ae type b vaccine, conjugate unspecified formulation Elzbieta Zarrabi Work Phone: [facility] Work Phone: 05-31-1996 haemophilus influenz ae type b vaccine, PRP-T conjugate [facility] 05-31-1996 poliovirus vaccine, inactivated [facility] 05-31-1996 trivalent poliovirus vaccine, live, oral Elzbieta Zarrabi Work Phone: [facility] Work Phone: 04-05-1996 diphtheria, tetanus toxoids and acellular pertussis vaccine [facility] 04-05-1996 DTP-Haemophilus influenzae type b conjugate vaccine Elzbieta Zarrabi Work Phone: [facility] Work Phone: 04-05-1996 haemophilus influenz ae type b vaccine, PRP-T conjugate [facility] 04-05-1996 poliovirus vaccine, inactivated [facility] 04-05-1996 trivalent poliovirus vaccine, live, oral Elzbieta Zarrabi Work Phone: [facility] Work Phone: 01-05-1996 diphtheria, tetanus toxoids and acellular pertussis vaccine [facility] 01-05-1996 DTP-Haemophilus influenzae type b conjugate vaccine Elzbieta Deal Work Phone: -[facility] Work Phone: 01-05-1996 haemophilus influenz ae type b vaccine, PRP-T conjugate [facility] 01-05-1996 poliovirus vaccine, inactivated [facility] 01-05-1996 trivalent poliovirus vaccine, live, oral Elzbieta Deal Work Phone: [facility] 1995 hepatitis B vaccine, pediatric or pediatric/adolescent dosage [facility] 1995 hepatitis B vaccine, pediatric or pediatric/adolescent dosage [facility] Payers Date Payer Category Payer Unknown [id number] 2018 Private Health Insurance AETNA A ETNA CHOICE POS/POSII/PREMIER CARE/PREMIER CARE PLUS xxxxxxxxxx 2018-Present xxxxxxxxxx [id number] 2018 Private Health Insurance [id number] 2018 Private Health Insurance [id number] 2018 Private Health Insurance AETNA A ETNA CHOICE POS/POSII/PREMIER CARE/PREMIER CARE PLUS [id number] 2018-Present [phone] [facility] [id number] [place] [address] [id number] 2016 Unknown 1995 Unknown [id number]. 903 1995 Unknown [id number]. 903 1995 Unknown [id number]. 903 1995 Unknown [id number] [id number]. 1995 Unknown [id number] [id number]. 1995 Unknown [id number] [id number]. 1995 Unknown [id number] [id number]. 1995 Unknown [id number] [id number]. 1995 Unknown [id number] [id number]. 1995 Unknown [id number] [id number]. 1995 Unknown [id number] [id number]. 1995 Unknown [id number] [id number]. 1995 Unknown [id number] [id number]. 1995 Unknown [id number] [id number]. 1995 Unknown [id number]. [facility] [id number] Social History Date Type Detail Facility Start: 01-11-2017 End: 03-20-2017 Tobacco smoking status MEIS Unknown if ever smoked [facility] Work Phone: Start: 1995 Sex Assigned At Not on file [employer] Work Phone: Start: 04-30-2018 End: 09-15-2018 Tobacco smoking status NHIS Former smoker [facility] Start: 04-30-2018 Tobacco Comment here and there [facility] Start: 04-30-2018 Alcohol Comment rarely [facility] History of tobacco use Cigarette Smoker [facility] Start: 08-18-2018 End: 02-01-2019 History SDOH [facility] Conne[facility] Start: 08-18-2018 History SDOH Social Connections Get Together 3 [facility] Start: 08-18-2018 End: 02-01-2019 History SDOH Social Connections Bahai 1 [facility] Start: 08-18-2018 End: 02-01-2019 History SDOH Social Connections Membership 2 [facility] Start: 08-18-2018 History SDOH Social Connections Living 7 [facility] Start: 08-18-2018 History SDOH Stress [facility] Start: 02-01-2019 End: 02-19-2023 Alcohol intake Current drinker of alcohol (finding) [facility] Start: 08-14-2020 End: 09-24-2022 Tobacco smoking status NHIS Never smoker [facility] Start: 08-14-2020 End: 09-24-2022 Tobacco use and exposure Never used [facility] Start: 08-14-2020 Alcohol Comment occasionally [facility] Start: 06-23-2021 End: 07-03-2021 Exposure to SARS-CoV-2 (event) Not sure [facility] Start: 08-18-2018 End: 02-18-2019 Former smoker Former smoker [facility] Work Phone: Start: 08-18-2018 End: 02-18-2019 Humiliation, Afraid, Rape, and Kick questionnaire [HARK] [facility] Fear of Current or Ex-Partner No [facility] Start: 04-30-2018 Gender identity Identifies as female gender (finding) [facility] Start: 04-30-2018 Sexual orientation Heterosexual (fin ding) [facility] NEGATED: Highlighted row - - [facility] Work Phone: Goals Date Patient Goal Desired Activity /State Personal health goal Functional Status Date Assessment Result Facility NEGATED: Highlighted row Functional performance Functional status health issues are not documented Disease [facility] Work Phone: Mental Status Date Assessment Result Facility NEGATED: Highlighted row Cognitive function [Interpretation] Cognitive status health issues are not documented Disease [facility] Work Phone: Clinical Notes 05-06-2010 to 02-19-2023 Perry Ponce Jr., JAYCE - 02/19/2023 8:55 AM Perry Betancourt Jr., JAYCE - 01/29/2023 10:05 AM Luke Mayo, [facility] - 01/21/2023 5:58 PM ESTPatient InstructionsAttachmentsAttachments Note Date & Type Note Facility 02-19-2023 History of Present illness Narrative Right ankle sprain Patient is a pleasant 27-year-old female following up today for mild lateral right ankle injury. Overall she states things are going quite well. She has been compliantly using her cam boot wearing this during the day. States she is about 75% better in the last 3 weeks. Physical Vascular: DP PT pulses are easily palpable 2-4. CFT is fair no edema. Derm: No open wounds no ulcers no rashes no deep nodules. Musculoskeletal: Does have pain across the distal ATFL still and lesser to the CFL. Negative anterior drawer sign can easily wiggle toes and clicking catching. No clicking or catching across the ankle itself. Assessment and plan: Patient is a pleasant 27-year-old female with ATFL injury. -At this time, given her improvement, did recommend she start traditional physical therapy 4 times and once weekly however she states that she has done this before and would like to do this at home instead. Therefore can proceed with and perform at home therapy. Follow-up. For this any new issues. Low medical complexity decision making based on the acute on chronic nature of her lateral ankle injury. documented in this encounter [facility] 01-29-2023 History of Present illness Narrative Right ankle sprain Patient is a pleasant 27-year-old female who comes in today with a 1 week history of right ankle trauma. She states that this weekend she was sitting down crossing her legs. Her foot fell asleep. She waited for it to wake up however stepped on it and it was still more sleep and she thought. States that she had a bad inversion foot and ankle injury twisted pretty badly and reports the emergency department. She was diagnosed with a sprain and return to an old boot that she has had. -Due to her hypertension, she does not take any NSAIDs for pain and tenderness as she was advised against using this. Additionally she had a similar ankle sprain 2 years ago and was seen my partner Dr. Anderson. Physical Vascular: DP PT pulses are palpable 2 out of 4. CFT is fair moderate lateral ankle edema. Derm: Ecchymosis present dorsally dorsal laterally but no open fracture blisters or wounds. Neuro: Light touch is normal. Musculoskeletal: Muscle strength is 5 out of 5 with fair tone. Can easily wiggle toes. Much pain across the ATFL none noted to the CFL Did review her radiographs from the hospital: No fractures dislocation or subluxation seen. Moderate ankle edema. Assessment plan: Patient is a pleasant 27-year-old female with an acute on chronic right ankle sprain to the ATFL. -At this time did prescribe dispensed and fitted with a cam boot which is necessary to use for the next 3 weeks. Only use this though while awake. Off to sleep shower and rest. We will avoid NSAIDs and steroids in light of her hypertension/intracranially. Follow-up in 3 weeks to start PT if necessary and MRI fails. Low medical complexity decision making based on the acute on chronic nature of her injury as well as the review of radiographs with independent interpretation. documented in this encounter [facility] 01-21-2023 History of Present illness Narrative Images from the original note were not included. Patient Name: [facility] Location: Nevaeh Villegas [address] [facility] [place] [address] Date Of : Date Of Visit: 1995 01/21/2023 MRN# Provider: [id number] Luke Tolbert CNP Chief Complaint Patient presents with Ankle Pain Right ankle pain, twisted it this afternoon. Has fractured it in the past. Assessment & Plan 1. Sprain of right ankle, unspecified ligament, initial encounter 2. Acute right ankle pain XR Ankle Right 3+ Views (Standard) No follow-ups on file. Medical Decision Making Considered fracture, dislocation Xray pending radiology read, per my interpretation, negative for acute fracture Will diagnose as Right Ankle Sprain. She has a boot at home and will start wearing when she gets home- ambulatory here today Encouraged RICE She will call her supervisor speech in the morning to get follow up Additional Clinical Comments Discussed over the counter medications for symptomatic management and side effects of medications. Recommended taking all medications with food and to stop medications if they develop any signs of an allergic reaction. Educated patient and/or guardian about signs and symptoms that would warrant further immediate evaluation. Recommended that they should return to urgent care, make an appointment with their family physician, or go to the emergency room if symptoms persist or get acutely worse. Recommended follow up within the next week with their PCP or to get established with a PCP soon in order to follow up appropriately. X-ray Documentation: I have personally reviewed the images. My impression is negative for acute fracture. Radiology over-read pending. Subjective 27 y.o. female presents with Ankle Pain (Right ankle pain, twisted it this afternoon. Has fractured it in the past.) Ankle Pain The incident occurred 1 to 3 hours ago. The incident occurred at home. The injury mechanism was a twisting injury. The pain is present in the right ankle. The quality of the pain is described as aching. The pain is moderate. The pain has been Fluctuating since onset. Pertinent negatives include no inability to bear weight, loss of motion, loss of sensation, numbness or tingling. Associated symptoms comments: Decreased range of motion due to pain. She reports no foreign bodies present. The symptoms are aggravated by movement, weight bearing and palpation. She has tried nothing for the symptoms. The treatment provided no relief. Review Of Systems Review of Systems Musculoskeletal: Positive for arthralgias. Neurological: Negative for tingling and numbness. Medical History Past Medical History: Diagnosis Date Ankle swelling Foot pain, right Headache Metatarsal fracture Obesity Right foot sprain Seasonal allergies Talus fracture Past Surgical History: Procedure Laterality Date INTRAUTERINE DEVICE INSERTION 06/2014 Patient Active Problem List Diagnosis Fatigue BMI 40.0-44.9, adult ([facility]) Screening for heart disease Vitamin D deficiency Low HDL (under 40) Itchy eyes Foot pain, right Right foot sprain Ankle swelling Headache Metatarsal fracture Obesity Talus fracture Social History Social History Tobacco Use Smoking status: Never Smokeless tobacco: Never Vaping Use Vaping Use: Never used Substance Use Topics Alcohol use: Yes Comment: occasionally Drug use: Never Family History Family History Problem Relation Age of Onset Hypothyroidism Mother Tourette syndrome Brother Lung cancer Maternal Grandmother ALFA disease Maternal Grandmother Diabetes type II Maternal Grandfather Hypertension Maternal Grandfather Hypotension Paternal Grandfather Hyperlipidemia Father Objective Physical Exam BP 114/80 (BP Location: Left arm, Patient Position: Sitting, BP Cuff Size: Adult) Pulse 83 Temp 98.7 F (37.1 C) (Oral) Resp 16 Wt 87.8 kg (193 lb 8 oz) SpO2 98% BMI 34.28 kg/m Vision/Hearing Exam:No results found. Physical Exam Vitals and nursing note reviewed. Constitutional: General: She is not in acute distress. Appearance: She is well-developed. She is not diaphoretic. HENT: Head: Normocephalic and atraumatic. Right Ear: External ear normal. Left Ear: External ear normal. Eyes: General: Right eye: No discharge. Left eye: No discharge. Conjunctiva/sclera: Conjunctivae normal. Pulmonary: Effort: Pulmonary effort is normal. No respiratory distress. Abdominal: General: There is no distension. Musculoskeletal: General: Swelling, tenderness and signs of injury present. Cervical back: Normal range of motion. Right ankle: Swelling and ecchymosis (slight discoloration to the right dorsal aspect of the foot) present. Tenderness present. Decreased range of motion. Normal pulse. Left ankle: Normal. Legs: Skin: Findings: No rash. Neurological: General: No focal deficit present. Mental Status: She is alert. Psychiatric: Behavior: Behavior normal. Thought Content: Thought content normal. Judgment: Judgment normal. Procedure Notes Procedures Results No results found for this or any previous visit (from the past 168 hour(s)). No orders to display Orders Placed This Visit Orders Placed This Encounter Procedures XR Ankle Right 3+ Views (Standard) Medication List At End Of Visit Current Outpatient Medications Medication Sig Dispense Refill acetaminophen (TYLENOL) 325 MG tablet Take 2 (two) tablets (650 mg total) by mouth every 6 (six) hours as needed for pain . acetaZOLAMIDE-ER (DIAMOX) 500 mg 12 hr capsule TAKE 1 CAPSULE BY MOUTH ONCE DAILY FOR 1 WEEK THEN 1 CAPSULE TWICE A DAY THEREAFTER benzonatate (Tessalon Perles) 100 MG capsule Take one or two capsules every 8 hours as needed for cough. Do not chew. . (Patient not taking: Reported on 01/21/2021 .) 60 capsule 1 Copper IUD (PARAGARD Intrauterine Copper) 1 (one) each by Intrauterine route once . ergocalciferol (ERGOCALCIFEROL) 50,000 unit capsule Take 1 (one) capsule (50,000 Units total) by mouth once a week . 13 capsule 1 fluticasone propionate (FLONASE) 50 mcg/actuation nasal spray Instill 2 (two) sprays into each nostril daily . (Patient not taking: Reported on 07/03/2021 .) 16 g 0 levonorgestrel (MIRENA) 20 mcg/24 hours (5 yrs) 52 mg IUD 1 (one) each by Intrauterine route once . loratadine (Claritin) 10 mg tablet Take 1 (one) tablet (10 mg total) by mouth daily as needed for allergies . 30 tablet 0 meloxicam (MOBIC) 15 MG tablet predniSONE (DELTASONE) 10 MG tablet Prednisone 10 mg, to taper over 12 days, 2 days each dose: 60, 50, 40, 30, 20, 10. . (Patient not taking: Reported on 01/21/2021 .) 42 tablet 0 SUMAtriptan (IMITREX) 50 MG tablet TAKE 1 TABLET BY MOUTH NEEDED FOR MIGRAINES. MAY REPEAT IN 2 HOURS IF NEEDED MAX 2 PER DAY topiramate (TOPAMAX) 25 MG tablet TAKE 1 TABLET BY MOUTH ONCE DAILY FOR 1 WEEK THEN 1 TABLET TWICE DAILY AFTER triamcinolone (KENALOG) 0.5 % cream venlafaxine (EFFEXOR-XR) 75 MG 24 hr capsule Take by mouth daily . No current facility-administered medications for this visit. Patient Instructions Start wearing your boot and call Dr Anderson in the morning to get scheduled for follow up If the radiologist reads it as a break we will call you documented in this encounter [facility] 01-21-2023 Instructions uLke Tolbert CNP - 01/21/2023 5:49 PM EST Start wearing your boot and call Dr Anderson in the morning to get scheduled for follow up If the radiologist reads it as a break we will call you The following attachments cannot be sent through Care Everywhere.Ankle Sprain (Moroccan)RICE: General Info (Moroccan)documented in this encounter [facility] 09-24-2022 Instructions Kiran Putnam DO - 09/24/2022 11:57 AM EDT Continue intermittent ice application as long as you find to be helpful. It is likely that we will no longer be helpful for much longer. At that point, you may switch to warm compresses and gentle massage of the affected areas. Regarding the cerumen accumulation in your right external auditory canal, use a Debrox kit to accomplish gentle flushing. documented in this encounter [facility] 09-24-2022 History of Present illness Narrative Images from the original note were not included. PATIENT NAME: Nevaeh Villegas [facility] URGENT CARE: [address] [facility] [place] [id number] DATE OF VISIT: 09/24/2022 DATE OF : 1995 SS: [id number] PROVIDER: Kiran Putnam DO SUBJECTIVE 27 y.o. female to the clinic for complaint of Chief Complaint Patient presents with Facial Swelling Fell Friday night, around 12:30am, swelling to eyelids, hard to keep eyes open HPI: Patient fell 3 days ago and struck her forehead. There was resultant contusion. She was evaluated in the emergency department and her work-up included CT scan of brain which imaged her orbits and sinuses also. CT scan was negative except for soft tissue swelling. As the swelling in escape blood from the frontal injury has migrated inferiorly, she has developed significant swelling and bruising of the periorbital region. She does not have any injury there. The swelling makes it difficult for her to hold her eyes open all day and she does not feel she can do her job safely and effectively with this current problem. She is slated to return to work tomorrow. She denies severe headache. She has localized tenderness at the site of her forehead injury. She denies visual disturbance. She denies any neurologic symptoms and has had no nausea or vomiting. ROS: Eyes: See HPI above. Head/Ear/Nose/Throat: Injuries as described above. Gastrointestinal: Denies nausea, vomiting. Musculoskeletal: Denies myalgia. Skin: Minimal superficial abrasion occurred from the impact. Neurological: Denies headache. Denies focal neuro symptoms. Social History Socioeconomic History Marital status: Single Tobacco Use Smoking status: Never Smokeless tobacco: Never Vaping Use Vaping Use: Never used Substance and Sexual Activity Alcohol use: Yes Comment: occasionally Drug use: Never Sexual activity: Yes Partners: Male control/protection: I.U.D. Social Determinants of Health Financial Resource Strain: Low Risk (08/18/2018) Overall Financial Resource Strain (CARDIA) Difficulty of Paying Living Expenses: Not hard at all Food Insecurity: No Food Insecurity (08/18/2018) Hunger Vital Sign Worried About Running Out of Food in the Last Year: Never true Ran Out of Food in the Last Year: Never true Transportation Needs: No Transportation Needs (08/18/2018) PRAPARE - Transportation Lack of Transportation (Medical): No Lack of Transportation (Non-Medical): No Physical Activity: Insufficiently Active (08/18/2018) Exercise Vital Sign Days of Exercise per Week: 2 days Minutes of Exercise per Session: 30 min Stress: Stress Concern Present (08/18/2018) [employer] - Occupational Stress Questionnaire Feeling of Stress : Rather much Social Connections: Moderately Isolated (08/18/2018) Social Connection and Isolation Panel [NHANES] Frequency of Communication with Friends and Family: More than three times a week Frequency of Social Gatherings with Friends and Family: Twice a week Attends Evangelical Services: Never Active Member of Clubs or Organizations: No Attends Club or Organization Meetings: Never Marital Status: Never Past Medical History: Diagnosis Date Ankle swelling Foot pain, right Headache Metatarsal fracture Obesity Right foot sprain Seasonal allergies Talus fracture Family History Problem Relation Age of Onset Hypothyroidism Mother Tourette syndrome Brother Lung cancer Maternal Grandmother ALFA disease Maternal Grandmother Diabetes type II Maternal Grandfather Hypertension Maternal Grandfather Hypotension Paternal Grandfather Hyperlipidemia Father Current Outpatient Medications on File Prior to Visit Medication Sig Dispense Refill acetaZOLAMIDE-ER (DIAMOX) 500 mg 12 hr capsule TAKE 1 CAPSULE BY MOUTH ONCE DAILY FOR 1 WEEK THEN 1 CAPSULE TWICE A DAY THEREAFTER Copper IUD (PARAGARD Intrauterine Copper) 1 (one) each by Intrauterine route once . venlafaxine (EFFEXOR-XR) 75 MG 24 hr capsule Take by mouth daily . acetaminophen (TYLENOL) 325 MG tablet Take 2 (two) tablets (650 mg total) by mouth every 6 (six) hours as needed for pain . benzonatate (Tessalon Perles) 100 MG capsule Take one or two capsules every 8 hours as needed for cough. Do not chew. . (Patient not taking: Reported on 01/21/2021 .) 60 capsule 1 ergocalciferol (ERGOCALCIFEROL) 50,000 unit capsule Take 1 (one) capsule (50,000 Units total) by mouth once a week . 13 capsule 1 fluticasone propionate (FLONASE) 50 mcg/actuation nasal spray Instill 2 (two) sprays into each nostril daily . (Patient not taking: Reported on 07/03/2021 .) 16 g 0 levonorgestrel (MIRENA) 20 mcg/24 hours (5 yrs) 52 mg IUD 1 (one) each by Intrauterine route once . loratadine (Claritin) 10 mg tablet Take 1 (one) tablet (10 mg total) by mouth daily as needed for allergies . 30 tablet 0 meloxicam (MOBIC) 15 MG tablet predniSONE (DELTASONE) 10 MG tablet Prednisone 10 mg, to taper over 12 days, 2 days each dose: 60, 50, 40, 30, 20, 10. . (Patient not taking: Reported on 01/21/2021 .) 42 tablet 0 SUMAtriptan (IMITREX) 50 MG tablet TAKE 1 TABLET BY MOUTH NEEDED FOR MIGRAINES. MAY REPEAT IN 2 HOURS IF NEEDED MAX 2 PER DAY topiramate (TOPAMAX) 25 MG tablet TAKE 1 TABLET BY MOUTH ONCE DAILY FOR 1 WEEK THEN 1 TABLET TWICE DAILY AFTER triamcinolone (KENALOG) 0.5 % cream No current facility-administered medications on file prior to visit. Allergies Allergen Reactions Topiramate Rash EXAM: BP 107/78 Pulse 84 Temp 98.2 F (36.8 C) (Oral) Resp 16 Ht 5' 3 Wt 86.2 kg (190 lb) LMP 09/20/2022 SpO2 98% BMI 33.66 kg/m Constitutional: Vital signs reviewed. Well-appearing. No distress. Psychiatric: Mental status is appropriate. Normal affect. Skin: Warm and dry. No rash noted. Eyes: Conjunctiva clear. No photophobia. PERRL. EOMI. No diplopia with extreme upward gaze. No lag of upward gaze on either side. No crepitance or pain response with palpation of the inferior orbital region. Left ear exam is normal. HENT: No hoarseness, drooling, trismus or stridor. The right external auditory canal has significant amount of cerumen within. Thorax/ Respiratory: Respiratory effort non-labored. Speaks in full sentences without dyspnea. Cardiovascular: Good peripheral circulation. Musculoskeletal: No gross abnormalities. Neck has normal ROM without hesitation or pain response. Neurologic: Alert and appropriately conversant. No ataxia. No dysarthria. No gross facial motor asymmetry. PROCEDURE Procedures RESULTS No results found for this or any previous visit (from the past 168 hour(s)). Diagnosis: The primary encounter diagnosis was Facial contusion, subsequent encounter. A diagnosis of Periorbital swelling was also pertinent to this visit. Plan: 1. Facial contusion, subsequent encounter 2. Periorbital swelling No follow-ups on file. ADDITIONAL CLINICAL COMMENTS / MEDICAL DECISION MAKING / PLAN: No evidence of periorbital fracture or orbital floor blowout fracture or basilar skull fracture. No evidence of ocular injury or compromise in vision or extraocular eye movement. Patient simply needs more time for her swelling to resolve. She has been having good results with frequent ice application thus far. She will continue that process until it no longer helps. She can then switch to warm compresses and gentle massage to mobilize the escape blood and edema. I reviewed the CT scan results from her recent emergency department visit. I provided work note to have her off 2 more days to allow for resolution of her swelling so that she may return to work when she can do so safely and effectively. ORDERS PLACED THIS VISIT No orders of the defined types were placed in this encounter. MEDICATION LIST AT END OF VISIT Current Outpatient Medications Medication Sig Dispense Refill acetaZOLAMIDE-ER (DIAMOX) 500 mg 12 hr capsule TAKE 1 CAPSULE BY MOUTH ONCE DAILY FOR 1 WEEK THEN 1 CAPSULE TWICE A DAY THEREAFTER Copper IUD (PARAGARD Intrauterine Copper) 1 (one) each by Intrauterine route once . venlafaxine (EFFEXOR-XR) 75 MG 24 hr capsule Take by mouth daily . acetaminophen (TYLENOL) 325 MG tablet Take 2 (two) tablets (650 mg total) by mouth every 6 (six) hours as needed for pain . benzonatate (Tessalon Perles) 100 MG capsule Take one or two capsules every 8 hours as needed for cough. Do not chew. . (Patient not taking: Reported on 01/21/2021 .) 60 capsule 1 ergocalciferol (ERGOCALCIFEROL) 50,000 unit capsule Take 1 (one) capsule (50,000 Units total) by mouth once a week . 13 capsule 1 fluticasone propionate (FLONASE) 50 mcg/actuation nasal spray Instill 2 (two) sprays into each nostril daily . (Patient not taking: Reported on 07/03/2021 .) 16 g 0 levonorgestrel (MIRENA) 20 mcg/24 hours (5 yrs) 52 mg IUD 1 (one) each by Intrauterine route once . loratadine (Claritin) 10 mg tablet Take 1 (one) tablet (10 mg total) by mouth daily as needed for allergies . 30 tablet 0 meloxicam (MOBIC) 15 MG tablet predniSONE (DELTASONE) 10 MG tablet Prednisone 10 mg, to taper over 12 days, 2 days each dose: 60, 50, 40, 30, 20, 10. . (Patient not taking: Reported on 01/21/2021 .) 42 tablet 0 SUMAtriptan (IMITREX) 50 MG tablet TAKE 1 TABLET BY MOUTH NEEDED FOR MIGRAINES. MAY REPEAT IN 2 HOURS IF NEEDED MAX 2 PER DAY topiramate (TOPAMAX) 25 MG tablet TAKE 1 TABLET BY MOUTH ONCE DAILY FOR 1 WEEK THEN 1 TABLET TWICE DAILY AFTER triamcinolone (KENALOG) 0.5 % cream No current facility-administered medications for this visit. Kiran Putnam documented in this encounter [facility] 10-08-2021 History of Present illness Narrative Good tolerance to progression in B hip and core strengthening.Verbal cues to minimize compensation of lumbar extension with hip extension. Able to maintain TrA with standing exercises with no exacerbation of pain. Noted pain at L lateral lumbar paraspinal approx L4 level with manual techniques. Pain at 6/10 by end of session. [facility] Work Phone: 07-17-2021 History of Present illness Narrative Patient able to tolerate progressions in core strengthening with no exacerbation of pain. Reports extension much more comfortable but pain does not dissipate in position. Introduction of basic kegals for pelvic floor strengthening to promote increased core stability with patient demonstrating understanding. Noted tenderness of L lumbar paraspinals near L2 landmark. 5/10 pain at the end of session. [facility] Work Phone: 07-03-2021 Instructions Asha Morocho CNP - 07/03/2021 6:36 PM EDT Thank you for choosing [facility] for your healthcare needs today. I treated the folliculitis with oral antibiotic to cover staph infection but I also sent in medication for sarita as well because you have 2 areas of solid erythema that may be yeast. Follow up persistent/worsening symptoms as needed. The following attachments cannot be sent through Care Everywhere.Folliculitis (Moroccan)documented in this encounter [facility] 07-03-2021 History of Present illness Narrative Images from the original note were not included. Patient Name: [facility] Urgent Care Location: [facility] [address] [id number] Date Of : Date Of Visit: 1995 07/03/2021 MRN# Provider: [id number] Asha Morocho CNP Chief Complaint Patient presents with Rash Under right arm x 2.5 weeks Assessment & Plan 1. Folliculitis of axilla doxycycline hyclate (VIBRAMYCIN) 100 MG capsule nystatin (MYCOSTATIN) cream No follow-ups on file. Medical Decision Making Client pleasant, non-toxic in NAD with rash to the right axilla x 2+ weeks. Waxing and waning. Appearance of shave rash initially that progressed to small pustules and papules, skin discoloration and areas of erythema. No itching or burning. Not or nursing. Non-smoker. Will treat as folliculitis and with treatment for sarita with large erythematous patches. See H&P and AVS Additional Clinical Comments Follow up persistent/worsening symptoms of concern. Subjective 25 y.o. female presents with Rash (Under right arm x 2.5 weeks) Rash below right arm x 2+ weeks. Began like shave bumps but continues to wax and wane. Concern for folliculitis. Rash This is a new problem. The current episode started 1 to 4 weeks ago. The problem has been waxing and waning since onset. The affected locations include the right axilla. The rash is characterized by redness and swelling (papules and pustules). She was exposed to nothing. Past treatments include nothing. Review Of Systems Review of Systems Skin: Positive for rash. Right axilla rash. Medical History Past Medical History: Diagnosis Date Ankle swelling Foot pain, right Headache Metatarsal fracture Obesity Right foot sprain Seasonal allergies Talus fracture Past Surgical History: Procedure Laterality Date INTRAUTERINE DEVICE INSERTION 06/2014 Patient Active Problem List Diagnosis Fatigue BMI 40.0-44.9, adult ([facility]) Screening for heart disease Vitamin D deficiency Low HDL (under 40) Itchy eyes Foot pain, right Right foot sprain Ankle swelling Headache Metatarsal fracture Obesity Talus fracture Social History Social History Tobacco Use Smoking status: Never Smoker Smokeless tobacco: Never Used Vaping Use Vaping Use: Never used Substance Use Topics Alcohol use: Yes Comment: occasionally Drug use: Never Family History Family History Problem Relation Age of Onset Hypothyroidism Mother Tourette syndrome Brother Lung cancer Maternal Grandmother ALFA disease Maternal Grandmother Diabetes type II Maternal Grandfather Hypertension Maternal Grandfather Hypotension Paternal Grandfather Hyperlipidemia Father Objective Physical Exam BP 113/82 (BP Location: Right arm, Patient Position: Sitting) Pulse 75 Temp 97.6 F (36.4 C) (Infrared) Resp 14 Ht 5' 3 Wt 107 kg (236 lb) SpO2 98% BMI 41.81 kg/m Vision/Hearing Exam:No exam data present Physical Exam Vitals and nursing note reviewed. Constitutional: General: She is not in acute distress. Appearance: Normal appearance. She is not ill-appearing, toxic-appearing or diaphoretic. HENT: Head: Normocephalic and atraumatic. Cardiovascular: Rate and Rhythm: Normal rate. Pulmonary: Effort: Pulmonary effort is normal. Skin: General: Skin is warm and dry. Comments: Client with erythematous papular type rash. Several small pustules 2 to 3 mm in size. She has 2 solid erythematous areas in the right axilla. Neurological: Mental Status: She is alert and oriented to person, place, and time. Psychiatric: Mood and Affect: Mood normal. Procedure Notes Procedures Results No results found for this or any previous visit (from the past 168 hour(s)). No orders to display Orders Placed This Visit No orders of the defined types were placed in this encounter. Medication List At End Of Visit Current Outpatient Medications Medication Sig Dispense Refill acetaminophen (TYLENOL) 325 MG tablet Take 650 mg by mouth every 6 (six) hours as needed for pain . acetaZOLAMIDE-ER (DIAMOX) 500 mg 12 hr capsule TAKE 1 CAPSULE BY MOUTH ONCE DAILY FOR 1 WEEK THEN 1 CAPSULE TWICE A DAY THEREAFTER levonorgestrel (MIRENA) 20 mcg/24 hours (5 yrs) 52 mg IUD 1 each by Intrauterine route once . SUMAtriptan (IMITREX) 50 MG tablet TAKE 1 TABLET BY MOUTH NEEDED FOR MIGRAINES. MAY REPEAT IN 2 HOURS IF NEEDED MAX 2 PER DAY topiramate (TOPAMAX) 25 MG tablet TAKE 1 TABLET BY MOUTH ONCE DAILY FOR 1 WEEK THEN 1 TABLET TWICE DAILY AFTER benzonatate (Tessalon Perles) 100 MG capsule Take one or two capsules every 8 hours as needed for cough. Do not chew. . (Patient not taking: No sig reported) 60 capsule 1 doxycycline hyclate (VIBRAMYCIN) 100 MG capsule Take 1 (one) capsule (100 mg total) by mouth 2 (two) times a day for 10 days . 20 capsule 0 ergocalciferol (ERGOCALCIFEROL) 50,000 unit capsule Take 1 (one) capsule (50,000 Units total) by mouth once a week . 13 capsule 1 fluticasone propionate (FLONASE) 50 mcg/actuation nasal spray Instill 2 (two) sprays into each nostril daily . (Patient not taking: Reported on 07/03/2021 .) 16 g 0 loratadine (Claritin) 10 mg tablet Take 1 (one) tablet (10 mg total) by mouth daily as needed for allergies . 30 tablet 0 meloxicam (MOBIC) 15 MG tablet nystatin (MYCOSTATIN) cream Apply topically 2 (two) times a day . 30 g 0 predniSONE (DELTASONE) 10 MG tablet Prednisone 10 mg, to taper over 12 days, 2 days each dose: 60, 50, 40, 30, 20, 10. . (Patient not taking: No sig reported) 42 tablet 0 triamcinolone (KENALOG) 0.5 % cream No current facility-administered medications for this visit. Patient Instructions Thank you for choosing [facility] for your healthcare needs today. I treated the folliculitis with oral antibiotic to cover staph infection but I also sent in medication for sarita as well because you have 2 areas of solid erythema that may be yeast. Follow up persistent/worsening symptoms as needed. documented in this encounter [facility] 01-21-2021 Instructions Zuri Barajas MD - 01/21/2021 10:23 AM EST Images from the original note were not included. Sore Throat: Care Instructions Your Care Instructions Infection by bacteria or a virus causes most sore throats. Cigarette smoke, dry air, air pollution, allergies, and yelling can also cause a sore throat. Sore throats can be painful and annoying. Fortunately, most sore throats go away on their own. If you have a bacterial infection, your doctor may prescribe antibiotics. Follow-up care is a black part of your treatment and safety. Be sure to make and go to all appointments, and call your doctor if you are having problems. It's also a good idea to know your test results and keep a list of the medicines you take. How can you care for yourself at home? If your doctor prescribed antibiotics, take them as directed. Do not stop taking them just because you feel better. You need to take the full course of antibiotics. Gargle with warm salt water once an hour to help reduce swelling and relieve discomfort. Use 1 teaspoon of salt mixed in 1 cup of warm water. Take an crxa-jwk-kudkkmo pain medicine, such as acetaminophen (Tylenol), ibuprofen (Advil, Motrin), or naproxen (Aleve). Read and follow all instructions on the label. Be careful when taking dmni-gkd-hzkipzl cold or flu medicines and Tylenol at the same time. Many of these medicines have acetaminophen, which is Tylenol. Read the labels to make sure that you are not taking more than the recommended dose. Too much acetaminophen (Tylenol) can be harmful. Drink plenty of fluids. Fluids may help soothe an irritated throat. Hot fluids, such as tea or soup, may help decrease throat pain. Use vijo-iyo-lsiqcfz throat lozenges to soothe pain. Regular cough drops or hard candy may also help. These should not be given to young children because of the risk of choking. Do not smoke or allow others to smoke around you. If you need help quitting, talk to your doctor about stop-smoking programs and medicines. These can increase your chances of quitting for good. Use a vaporizer or humidifier to add moisture to your bedroom. Follow the directions for cleaning the machine. When should you call for help? Call your doctor now or seek immediate medical care if: You have new or worse trouble swallowing. Your sore throat gets much worse on one side. Watch closely for changes in your health, and be sure to contact your doctor if you do not get better as expected. Where can you learn more? Log into your personal health record on [email or web address]://[email or web address] and enter U420 in the Education box to learn more about Sore Throat: Care Instructions. Current as of: February 09, 2020 Content Version: 13.0 [employer]. Care instructions adapted under license by your healthcare professional. If you have questions about a medical condition or this instruction, always ask your healthcare professional. [employer] disclaims any warranty or liability for your use of this information. Lots of liquids. Be seen if worse. [employer] warm apple pie throat lozenges. Thank you for coming to see us!!! documented in this encounter [facility] 01-21-2021 History of Present illness Narrative Images from the original note were not included. Patient Name: [facility] Location: Nevaeh Villegas [address] [facility] [place] [id number] Date Of : Date Of Visit: 1995 01/21/2021 MRN# Provider: [id number] Zuri Barajas MD Chief Complaint Patient presents with Sore Throat Sore throat for a couple days, son had strep in November, kasie just got over it Assessment & Plan 1. Sore throat POC Strep A - Molecular No follow-ups on file. Medical Decision Making Patient is not toxic and in no acute distress. Strep and covid negative - feel likely due to postnasal drip and trial of medications for this Additional Clinical Comments Discussed over the counter medications for symptomatic management and side effects of medications. Recommended taking all medications with food and to stop medications if they develop any signs of an allergic reaction. Educated patient and/or guardian about signs and symptoms that would warrant further immediate evaluation. Recommended that they should return to urgent care, make an appointment with their family physician, or go to the emergency room if symptoms persist or get acutely worse. Recommended follow up within the next week with their PCP or to get established with a PCP soon in order to follow up appropriately. Subjective 25 y.o. female presents with Sore Throat (Sore throat for a couple days, son had strep in November, kasie just got over it) C/o sore throat started 2 days ago, then went away but woke up this am and could barely swallow. Not vaccinated. Has had runny/stuffy nose for 2 days. No f/c. No cough. Has had recent exposure to strep Review Of Systems Review of Systems Constitutional: Positive for fatigue. Negative for appetite change, chills and fever. No change in taste or smell HENT: Positive for congestion, rhinorrhea, sore throat and trouble swallowing. Negative for ear pain. Respiratory: Negative for cough and shortness of breath. Cardiovascular: Negative for chest pain. Gastrointestinal: Negative for abdominal pain, diarrhea, nausea and vomiting. Genitourinary: Not. Nocturia - no Musculoskeletal: Negative for myalgias. Neurological: Negative for headaches. Medical History Past Medical History: Diagnosis Date Ankle swelling Foot pain, right Headache Metatarsal fracture Obesity Right foot sprain Seasonal allergies Talus fracture Past Surgical History: Procedure Laterality Date INTRAUTERINE DEVICE INSERTION 06/2014 Patient Active Problem List Diagnosis Fatigue BMI 40.0-44.9, adult ([facility]) Screening for heart disease Vitamin D deficiency Low HDL (under 40) Itchy eyes Foot pain, right Right foot sprain Ankle swelling Headache Metatarsal fracture Obesity Talus fracture Social History Social History Tobacco Use Smoking status: Never Smoker Smokeless tobacco: Never Used Vaping Use Vaping Use: Never used Substance Use Topics Alcohol use: Yes Comment: occasionally Drug use: Never Family History Family History Problem Relation Age of Onset Hypothyroidism Mother Tourette syndrome Brother Lung cancer Maternal Grandmother ALFA disease Maternal Grandmother Diabetes type II Maternal Grandfather Hypertension Maternal Grandfather Hypotension Paternal Grandfather Hyperlipidemia Father Objective Physical Exam BP 122/78 (BP Location: Left arm, Patient Position: Sitting, BP Cuff Size: Adult) Pulse 88 Temp 98.1 F (36.7 C) (Infrared) Resp 16 Ht 5' 2 Wt 108.9 kg (240 lb) SpO2 97% BMI 43.90 kg/m Vision/Hearing Exam:No exam data present Physical Exam Vitals and nursing note reviewed. Constitutional: General: She is not in acute distress. Appearance: Normal appearance. She is not ill-appearing or toxic-appearing. HENT: Head: Normocephalic and atraumatic. Right Ear: Tympanic membrane, ear canal and external ear normal. Left Ear: Tympanic membrane, ear canal and external ear normal. Mouth/Throat: Pharynx: Posterior oropharyngeal erythema present. No oropharyngeal exudate. Comments: Uvula is sl swollen. Has geographic tongue Eyes: General: No scleral icterus. Conjunctiva/sclera: Conjunctivae normal. Cardiovascular: Rate and Rhythm: Normal rate and regular rhythm. Pulmonary: Effort: Pulmonary effort is normal. No respiratory distress. Breath sounds: Normal breath sounds. Musculoskeletal: Cervical back: Neck supple. No muscular tenderness. Lymphadenopathy: Cervical: No cervical adenopathy. Skin: General: Skin is warm and dry. Coloration: Skin is not jaundiced or pale. Neurological: Mental Status: She is alert. Psychiatric: Mood and Affect: Mood normal. Behavior: Behavior normal. Procedure Notes Procedures Results Recent Results (from the past 168 hour(s)) POC Strep A - Molecular Collection Time: 01/21/21 9:41 AM Result Value Ref Range Strep A Screen Negative Negative No orders to display Orders Placed This Visit Orders Placed This Encounter Procedures POC Strep A - Molecular Medication List At End Of Visit Current Outpatient Medications Medication Sig Dispense Refill acetaminophen (TYLENOL) 325 MG tablet Take 650 mg by mouth every 6 (six) hours as needed for pain . levonorgestrel (MIRENA) 20 mcg/24 hours (5 yrs) 52 mg IUD 1 each by Intrauterine route once . triamcinolone (KENALOG) 0.5 % cream benzonatate (Tessalon Perles) 100 MG capsule Take one or two capsules every 8 hours as needed for cough. Do not chew. . (Patient not taking: Reported on 01/21/2021 .) 60 capsule 1 ergocalciferol (ERGOCALCIFEROL) 50,000 unit capsule Take 1 (one) capsule (50,000 Units total) by mouth once a week . 13 capsule 1 meloxicam (MOBIC) 15 MG tablet predniSONE (DELTASONE) 10 MG tablet Prednisone 10 mg, to taper over 12 days, 2 days each dose: 60, 50, 40, 30, 20, 10. . (Patient not taking: Reported on 01/21/2021 .) 42 tablet 0 No current facility-administered medications for this visit. There are no Patient Instructions on file for this visit. documented in this encounter [facility] 11-06-2020 History of Present illness Narrative Images from the original note were not included. Established Patient Visit Raquel Anderson DPM Patient Name: Nevaeh Morgan. . Date of : 1995, 25 y.o.. Gender: female. Subjective: Patient is a pleasant 25-year-old female who presents to clinic for follow-up right foot sprain. 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 Patient reports much improvement to the right foot states that the pain is resolving. She is pointing at a small lump on the bottom of her left foot that has been slightly painful. No other pedal complaints at this time. Patient denies any fevers, chills, nausea, vomiting, chest pain, shortness of breath or any other constitutional symptoms. Physical Examination: BP 115/68 (BP Location: Right arm, Patient Position: Sitting, BP Cuff Size: Adult) Pulse 95 Temp 98.4 F (36.9 C) (Infrared) General Appearance: Alert, cooperative, no distress, appears stated age. Podiatric Exam Vascular: DP and PT pulses are palpable 2/4 bilaterally. Capillary refill time is brisk to distal digits. No appreciable edema noted bilaterally. Hair growth present. Skin temperature is warm to warm from proximal tibial tuberosity to distal digits. Neuro: Gross sensation intact to bilateral lower extremities. Dermatologic: The previously noted ecchymosis on the dorsum of her right foot has resolved. No appreciable swelling noted. A small palpable mass can be palpated within the medial band of the plantar fascia, left foot. Does not transilluminate. Nails 1 through 10 are within normal limits. No open lesions or ulcerations noted. Interdigital spaces are clean dry and intact. Musculoskeletal: Mild pain on palpation to the dorsal lateral aspect of the right foot overlying the extenser digitorum brevis muscle. Mild tenderness on palpation to the palpable mass, plantar left foot. Ankle joint range of motion is intact without pain or crepitus. Muscle strength is 5/5 to all plantar flexors, dorsiflexors, inverters and everters. Compartments are soft and compressible. No calf pain. Assessment: 1. Right foot sprain, subsequent encounter 2. Right foot pain 3. Plantar fascial fibromatosis of left foot 4. Foot pain, left Plan: Patient was seen and evaluated. Discussed all clinical and radiographic findings. Patient has a right foot sprain along the tarsal ligaments that has improved significantly since last clinic visit and continues to improve. I personally reviewed MRI images and agree with radiologist read. Discussed MRI findings to the right foot showing mild bursitis along the extra capsular aspect of the fourth and second metatarsophalangeal joints. No ligamentous tear. No need for surgical intervention at this time. Regarding her left foot mass, discussed with patient that this is a plantar fibromatosis. Patient understands that this has a 50% recurrence rate following surgical excision. Therefore, patient should reserve surgical intervention when this becomes extremely painful. All questions were answered to patient satisfaction. Patient understands to call with any questions or concerns. Follow-up as needed Raquel Anderson DPM, MS Podiatric Physician & Surgeon documented in this encounter [facility] 10-25-2020 Miscellaneous Notes Addended by: RAQUEL ANDERSON on: 10/25/2020 10:48 AM Modules accepted: Orders documented in this encounter [facility] 10-19-2020 History of Present illness Narrative [facility] DAILY TREATMENT NOTE Today's Date 10/19/2020 Patient Name: Nevaeh Morgan Date of : 1995 Current Visit #: 8 Authorized Visits: 60 Case Name: Right foot pain History: Pre-Treatment Pain Scale: 4 Symptoms: gradually improved Functional Diagnosis: 1. Sprain of right foot, initial encounter Clinical Information: Subjective: Pt reports ankle feeling good and able to continue HEP at home Objective Ankle/Foot Right Ankle/Foot Range of Motion: Dorsiflexion Active: 7 Plantar Flexion Active: 47 Inversion Active: 16 Eversion Active: 10 Muscle Strength: DorsiFlexion: 4 (with pain) Plantar Flexion: 5 Inversion: 5 Eversion: 4+ (with pain) Girth Figure eight (cm): 52 Treatments: Physical Therapy Exercise Log - 10/19/20 1638 OTHER Notes visit 8: 4:38 - 5:10 Therapeutic Exercise ([id number]) Parameters standing gastroc/soleus stretch 3x20 Intervention rockerboard fwd/lat x20 Parameters BAPS L2 fwd, lat, CW and CCW x10 each Intervention excursions fwd, lat and retro x5 Parameters walking in tennis shoe x150ft - recipracol pattern with emphasis on heel strike - NT Intervention 4 way ankle GTB x20 Parameters step ups 6 lateral/retro x12 Intervention SL balance 2x20 Parameters shuttle BLE 50# x20 Intervention ambulation lat/retro 2x32' Parameters full stairs x1 Modalities Modalities -- Parameters 34 deg, low comp x 10' PT Treatment Times Therex Total Time 32 Direct Treatment Time 32 Total Treatment Time 32 Goals: Physical Therapy Ortho Goals: MOBILITY: Patient will be able to ambulate for >1 hour in community without difficulty in 6 weeks. MOBILITY: Patient will be able to ambulate on uneven surfaces without difficulty in 6 weeks. MOBILITY: Patient will be able to ascend/descend stairs without difficulty in 6 weeks. CHANGING MAINTAINING POSITON: Patient will be able to stand for >1 hour without pain in 6 weeks. SELF CARE: Patient will be able to complete ADL's, IADL' s and work activities involving prolonged walking and standing without difficulty in 6 weeks. IMPAIRMENT: Patient will demonstrate improved postural awareness in PT sessions to facilitate mechanical alignment and function in 2 weeks. IMPAIRMENT: Improve pain from 5/10 to <2/10 during prolonged standing and walking in 4 weeks. IMPAIRMENT: Improve MMT of Right Ankle Inversion from 4+/5 to 5/5 in 4 weeks. IMPAIRMENT: Improve gross ROM of Right Ankle to WFL in 6 weeks. OTHER: Patient will increase FOTO score to at least 69 to show MDC/MCII and expected functional outcome in 6 weeks. OTHER: Patient will be able to properly demonstrate independence with HEP in 1 week. Patient Education: Quality of movement with patient demonstrated understanding. Post-Treatment Pain Scale: 4 Assessment: Patient had an expected response to treatment. Skilled Intervention demonstrated by modifications of treatment per exercise log including increased load and safety interventions per exercise log. Progress towards goals as expected. Plan for Next Visit: Discharge Yani Mckinney PTA STATE LICENSE, [id number] documented in this encounter [facility] 10-17-2020 History of Present illness Narrative [facility] DAILY TREATMENT NOTE Today's Date 10/17/2020 Patient Name: Nevaeh Morgan Date of : 1995 Current Visit #: 7 Authorized Visits: 60 Case Name: Right foot pain History: Pre-Treatment Pain Scale: 2 Symptoms: gradually improved Functional Diagnosis: 1. Sprain of right foot, initial encounter Clinical Information: Subjective: Her foot still hurts a little with going up stairs. Objective Fair eccentric control with excursions standing on Airex. Treatments: Physical Therapy Exercise Log - 10/17/20 1708 OTHER Notes visit 7: 4:35 - 5:15 Therapeutic Exercise ([id number]) Parameters standing gastroc/soleus stretch 3x20 Intervention rockerboard fwd/lat x20 Parameters BAPS L2 fwd, lat, CW and CCW x10 each Intervention excursions fwd, lat and retro x5 Parameters walking in tennis shoe x150ft - recipracol pattern with emphasis on heel strike - NT Intervention 4 way ankle GTB x20 Parameters step ups 6 lateral/retro x12 Intervention SL balance 2x20 Parameters shuttle BLE 50# x20 Intervention ambulation lat/retro 2x32' Parameters full stairs x1 Modalities Modalities Vasopneumatic Treatment Parameters 34 deg, low comp x 10' PT Treatment Times Therex Total Time 26 Modalities Total Time 10 Direct Treatment Time 36 Total Treatment Time 36 Goals: Physical Therapy Ortho Goals: MOBILITY: Patient will be able to ambulate for >1 hour in community without difficulty in 6 weeks. MOBILITY: Patient will be able to ambulate on uneven surfaces without difficulty in 6 weeks. MOBILITY: Patient will be able to ascend/descend stairs without difficulty in 6 weeks. CHANGING MAINTAINING POSITON: Patient will be able to stand for >1 hour without pain in 6 weeks. SELF CARE: Patient will be able to complete ADL's, IADL' s and work activities involving prolonged walking and standing without difficulty in 6 weeks. IMPAIRMENT: Patient will demonstrate improved postural awareness in PT sessions to facilitate mechanical alignment and function in 2 weeks. IMPAIRMENT: Improve pain from 5/10 to <2/10 during prolonged standing and walking in 4 weeks. IMPAIRMENT: Improve MMT of Right Ankle Inversion from 4+/5 to 5/5 in 4 weeks. IMPAIRMENT: Improve gross ROM of Right Ankle to WFL in 6 weeks. OTHER: Patient will increase FOTO score to at least 69 to show MDC/MCII and expected functional outcome in 6 weeks. OTHER: Patient will be able to properly demonstrate independence with HEP in 1 week. Patient Education: Quality of movement with patient demonstrated understanding. Post-Treatment Pain Scale: 1 Assessment: Patient had an expected response to treatment. Skilled Intervention demonstrated by modifications of treatment per exercise log including increased intensity and safety interventions per exercise log. Progress towards goals as expected. Plan for Next Visit: Treatment Visit with focus on balance and strengthening Antoinette Daily PTA STATE LICENSE, [id number] documented in this encounter [facility] 10-12-2020 History of Present illness Narrative [facility] DAILY TREATMENT NOTE Today's Date 10/12/2020 Patient Name: Nevaeh Morgan Date of : 1995 Current Visit #: 6 Authorized Visits: 60 Case Name: Right foot pain History: Pre-Treatment Pain Scale: 5 Symptoms: gradually worsened Functional Diagnosis: 1. Sprain of right foot, initial encounter Clinical Information: Subjective: Pt denies change in med hx. She reports that she is more sore and having more pain in the top of the foot following being on her feet a lot today. Objective Treatments: Physical Therapy Exercise Log - 10/12/20 9325 OTHER Notes visit 6: 4:39 - 5:19 Therapeutic Exercise ([id number]) Parameters standing gastroc/soleus stretch 3x20 Intervention rockerboard fwd/lat x20 Parameters BAPS L2 fwd, lat, CW and CCW x10 each Intervention excursions fwd, lat and retro x5 Parameters walking in tennis shoe x150ft - recipracol pattern with emphasis on heel strike - NT Intervention 4 way ankle GTB x20 Parameters step ups 6 lateral/retro x12 Intervention SL balance 2x20 Parameters shuttle BLE 50# x20 Intervention ambulation lat/retro 2x32' Modalities Modalities Vasopneumatic Treatment Parameters 34 deg, low comp x 10' PT Treatment Times Therex Total Time 30 Modalities Total Time 10 Direct Treatment Time 40 Total Treatment Time 40 Goals: Physical Therapy Ortho Goals: MOBILITY: Patient will be able to ambulate for >1 hour in community without difficulty in 6 weeks. MOBILITY: Patient will be able to ambulate on uneven surfaces without difficulty in 6 weeks. MOBILITY: Patient will be able to ascend/descend stairs without difficulty in 6 weeks. CHANGING MAINTAINING POSITON: Patient will be able to stand for >1 hour without pain in 6 weeks. SELF CARE: Patient will be able to complete ADL's, IADL' s and work activities involving prolonged walking and standing without difficulty in 6 weeks. IMPAIRMENT: Patient will demonstrate improved postural awareness in PT sessions to facilitate mechanical alignment and function in 2 weeks. IMPAIRMENT: Improve pain from 5/10 to <2/10 during prolonged standing and walking in 4 weeks. IMPAIRMENT: Improve MMT of Right Ankle Inversion from 4+/5 to 5/5 in 4 weeks. IMPAIRMENT: Improve gross ROM of Right Ankle to WFL in 6 weeks. OTHER: Patient will increase FOTO score to at least 69 to show MDC/MCII and expected functional outcome in 6 weeks. OTHER: Patient will be able to properly demonstrate independence with HEP in 1 week. Patient Education: Quality of movement with patient demonstrated understanding. Post-Treatment Pain Scale: 4 Assessment: Patient had an expected response to treatment. Skilled Intervention demonstrated by modifications of treatment per exercise log including increased load, increased rate, assessment of patient's response and modalities as indicated and safety interventions per exercise log. Progress towards goals as expected. Plan for Next Visit: Treatment Visit with focus on continued strengthening and stability. Shelia Sera Dash No licensure found in state: [place] Issac Ibarra PT, DPT State License, [id number] documented in this encounter [facility] 10-05-2020 History of Present illness Narrative [facility] DAILY TREATMENT NOTE Today's Date 10/05/2020 Patient Name: Nevaeh Morgan Date of : 1995 Current Visit #: 4 Authorized Visits: 60 Case Name: Right foot pain History: Pre-Treatment Pain Scale: 0 Symptoms: gradually improved Functional Diagnosis: 1. Sprain of right foot, initial encounter Clinical Information: Subjective: Pt denies change in med hx and reports no new complaints. She reports no pain recently but states she had an episode of intense spasm in the dorsum of her foot that lasted about 10 seconds the other day. Objective Pt wore a tennis shoe today. She completed the majority of the session in weight bearing with good tolerance. Plan to continue progressing strength/stability with airex, step-ups, squats, etc as tolerated. Treatments: Physical Therapy Exercise Log - 10/05/20 1647 OTHER Notes visit 4: 4:47 - 5:25 Therapeutic Exercise ([id number]) Parameters standing gastroc/soleus stretch 3x20 Intervention rockerboard fwd/lat x 20 Parameters BAPS L2 fwd, lat, CW and CCW x10 each Intervention excursions fwd, lat and retro x5 Parameters walking in tennis shoe x150ft - recipracol pattern with emphasis on heel strike Intervention 4 way ankle RTB x20 Intervention -- Modalities Modalities Vasopneumatic Treatment Parameters 34 deg, low comp x 10' PT Treatment Times Therex Total Time 28 Modalities Total Time 10 Direct Treatment Time 38 Total Treatment Time 38 Goals: Physical Therapy Ortho Goals: MOBILITY: Patient will be able to ambulate for >1 hour in community without difficulty in 6 weeks. MOBILITY: Patient will be able to ambulate on uneven surfaces without difficulty in 6 weeks. MOBILITY: Patient will be able to ascend/descend stairs without difficulty in 6 weeks. CHANGING MAINTAINING POSITON: Patient will be able to stand for >1 hour without pain in 6 weeks. SELF CARE: Patient will be able to complete ADL's, IADL' s and work activities involving prolonged walking and standing without difficulty in 6 weeks. IMPAIRMENT: Patient will demonstrate improved postural awareness in PT sessions to facilitate mechanical alignment and function in 2 weeks. IMPAIRMENT: Improve pain from 5/10 to <2/10 during prolonged standing and walking in 4 weeks. IMPAIRMENT: Improve MMT of Right Ankle Inversion from 4+/5 to 5/5 in 4 weeks. IMPAIRMENT: Improve gross ROM of Right Ankle to WFL in 6 weeks. OTHER: Patient will increase FOTO score to at least 69 to show MDC/MCII and expected functional outcome in 6 weeks. OTHER: Patient will be able to properly demonstrate independence with HEP in 1 week. Patient Education: Quality of movement, Verbal HEP and Pain Management with patient verbalized understanding. Post-Treatment Pain Scale: 0 Assessment: Patient had an expected response to treatment. Skilled Intervention demonstrated by modifications of treatment per exercise log including increased load, increased intensity, increased mobility and modalities as indicated and safety interventions per exercise log. Progress towards goals as expected. Plan for Next Visit: Treatment Visit with focus on progressing strength/stability in weight bearing Issac Ibarra PT State License, [id number] documented in this encounter [facility] 10-02-2020 History of Present illness Narrative Images from the original note were not included. Established Patient Visit Raquel Anderson DPM Patient Name: Nevaeh Morgan. . Date of : 1995, 25 y.o.. Gender: female. Subjective: Patient is a pleasant 25-year-old female who presents to clinic for follow-up right foot sprain. 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 She has been ambulating using a Cam boot and denies improvement while in the boot and after completion of physical therapy course. No other pedal complaints at this time. Patient denies any fevers, chills, nausea, vomiting, chest pain, shortness of breath or any other constitutional symptoms. Physical Examination: BP 109/70 (BP Location: Right arm, Patient Position: Sitting, BP Cuff Size: Adult) Pulse 96 Temp 97.9 F (36.6 C) (Temporal) General Appearance: Alert, cooperative, no distress, appears stated age. Podiatric Exam Vascular: DP and PT pulses are palpable 2/4 bilaterally. Capillary refill time is brisk to distal digits. No appreciable edema noted bilaterally. Hair growth present. Skin temperature is warm to warm from proximal tibial tuberosity to distal digits. Neuro: Gross sensation intact to bilateral lower extremities. Dermatologic: The previously noted ecchymosis on the dorsum of her right foot has resolved. Mild residual swelling noted. Nails 1 through 10 are within normal limits. No open lesions or ulcerations noted. Interdigital spaces are clean dry and intact. Musculoskeletal: Pain on palpation to the dorsal lateral aspect of the right foot overlying the extenser digitorum brevis muscle. Ankle joint range of motion is intact without pain or crepitus. Muscle strength is 5/5 to all plantar flexors, dorsiflexors, inverters and everters. Compartments are soft and compressible. No calf pain. Assessment: 1. Right foot sprain, subsequent encounter MR Foot Right With Contrast 2. Right foot pain MR Foot Right With Contrast Plan: Patient was seen and evaluated. Discussed all clinical and radiographic findings. No evidence for fracture dislocation as previously reviewed on radiographs. Patient has a right foot sprain along the tarsal ligaments. At this time, patient has failed conservative management including offloading with cam boot, anti-inflammatories compression therapy, and a course of physical therapy. Recommended obtaining an MRI to assess ligamentous and soft tissue pathology. An order for MRI was placed. This is medically necessary for surgical planning. Follow-up in 4 weeks or sooner after obtaining her MRI All questions were answered to patient satisfaction. Patient understands to call with any questions or concerns. Raquel Anderson DPM, MS Podiatric Physician & Surgeon documented in this encounter [facility] 10-02-2020 History of Present illness Narrative Images from the original note were not included. Established Patient Visit Raquel Anderson DPM Patient Name: Nevaeh Morgan. . Date of : 1995, 25 y.o.. Gender: female. Subjective: Patient is a pleasant 25-year-old female who presents to clinic for follow-up right foot sprain. Patient has sprained her foot when she was picking up her son from her [facility]. She has been ambulating using a Cam boot and denies improvement while in the boot and after completion of physical therapy course. No other pedal complaints at this time. Patient denies any fevers, chills, nausea, vomiting, chest pain, shortness of breath or any other constitutional symptoms. Physical Examination: BP 109/70 (BP Location: Right arm, Patient Position: Sitting, BP Cuff Size: Adult) Pulse 96 Temp 97.9 F (36.6 C) (Temporal) General Appearance: Alert, cooperative, no distress, appears stated age. Podiatric Exam Vascular: DP and PT pulses are palpable 2/4 bilaterally. Capillary refill time is brisk to distal digits. No appreciable edema noted bilaterally. Hair growth present. Skin temperature is warm to warm from proximal tibial tuberosity to distal digits. Neuro: Gross sensation intact to bilateral lower extremities. Dermatologic: The previously noted ecchymosis on the dorsum of her right foot has resolved. Mild residual swelling noted. Nails 1 through 10 are within normal limits. No open lesions or ulcerations noted. Interdigital spaces are clean dry and intact. Musculoskeletal: Pain on palpation to the dorsal lateral aspect of the right foot overlying the extenser digitorum brevis muscle. Ankle joint range of motion is intact without pain or crepitus. Muscle strength is 5/5 to all plantar flexors, dorsiflexors, inverters and everters. Compartments are soft and compressible. No calf pain. Assessment: 1. Right foot sprain, subsequent encounter MR Foot Right With Contrast 2. Right foot pain MR Foot Right With Contrast Plan: Patient was seen and evaluated. Discussed all clinical and radiographic findings. No evidence for fracture dislocation as previously reviewed on radiographs. Patient has a right foot sprain along the tarsal ligaments. At this time, patient has failed conservative management including offloading with cam boot, anti-inflammatories compression therapy, and a course of physical therapy. Recommended obtaining an MRI to assess ligamentous and soft tissue pathology. An order for MRI was placed. This is medically necessary for surgical planning. Follow-up in 4 weeks or sooner after obtaining her MRI All questions were answered to patient satisfaction. Patient understands to call with any questions or concerns. Raquel Anderson DPM, MS Podiatric Physician & Surgeon documented in this encounter [facility] 09-19-2020 History of Present illness Narrative [facility] Evaluation Today's Date 09/19/2020 Patient Name: Nevaeh Morgan Date of : 1995 Case Name: Right foot pain Functional Diagnosis: 1. Right foot sprain, subsequent encounter Clinical Information: Subjective Referring Diagnosis: Right foot sprain Follow-up with physician: 10/02/2020 History of Present Illness Per medical records dated: 08/14/2020 Contemporary Medical History: X-Ray FINDINGS (Foot): There are no acute fractures, dislocations, or radiopaque foreign bodies. FINDINGS (Ankle): Soft swelling overlying the lateral malleolus without acute fracture. There a small corticated density lateral to the cuboid on the AP view suspicious for an old avulsion injury. Ankle mortise is intact. Subjective History: Pt presents with c/o right foot pain which began about 4 years ago when she broke her foot but most recently in August when she reports her ankle inverted when picking up her son from the [facility] She states that the pain at this point is mainly when she is on the foot for a prolonged amount of time. She reports some numbness in the top of the foot during the beginning of her injury but more tingling lately which comes and goes. She reports that her DrSandrita thinks there may be some nerve damage causing the tingling. She reports some swelling occasionally which has improved since the initial injury. Previous Imaging: X-ray Pain Scale: Pain location: ankle/foot Average Pain: 5/10 Pain at highest: 5/10 Aggravating factors: prolonged standing Easing factors: boot, rest, ice, meloxicam 24 Hour Symptom Behavior Morning Pain: gradual End of day pain: worse Personal Goals: Decrease pain, return to prior level of activity Functional Mobility Status Functional Limitations: limited mobility and standing Current Mobility Status: Home: independent and no device Community: independent and no device Social Support: Evangelical, social, or cultural considerations to be made aware of before starting treatment: No Home Environment: Current Home Environment: Entry: no steps Basement: laundryActivities of Daily Living: independent with all Instrumental Activities of Daily Living: to be assessed 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 DorsiFlexion: 5 Plantar Flexion: 5 Inversion: 4+ Eversion: 5 Other Sensation: normal Swelling: Negative Swelling (cm): Right Left Figure 8: 52.0 52.1 Malleoli: 24.0 26.4 Met. Base: 22.9 23.6 FOTO: 59 Treatments: Physical Therapy Exercise Log - 09/19/20 1701 OTHER Notes Visit 1: 4:00 - 4:32 Therapeutic Exercise (07215) Intervention provided HEP handout consisting of the following: Parameters gastroc/soleus stretch Intervention ankle ABCs Parameters towel scrunches Intervention towel inv/ev Parameters 4 way ankle YTB PT Treatment Times Total Treatment Time 32 CPT Code 53763 Low 86134 Moderate 44096 High History 0 1-2 3+ Comorbidities: Unremarkable, Personal factors: chronicity or severity of the current condition Examination of body systems (elements of body structures & functions, activity limitations, and/or participation restrictions) 1-2 elements 3+ elements 4+ elements See below clinical impression Clinical Presentation Stable Evolving Unstable As evidenced by reproduction of or changes in symptoms with certain movements and pt report of overall worsening of symtpoms over time Decision Making Low (FOTO >/= 69) Moderate (FOTO 34 - 68) High (FOTO </= 33) FOTO score= 59 Pt is a 25 y.o. female who presents to PT services with c/o right foot pain. Upon assessment, pt has been found with the following impairments: decreased ROM, decreased strength, antalgic gait, swelling, decreased stability, pain and tingling. The documented impairments result in the following functional limitations: ADLs/IADLs, functional mobility, walking, stairs and quality of life. The pt would benefit from skilled PT services focused on the above listed impairments and limitations in order to safely progress pt to their desired level of function. Pt to be discharged from OP PT services if/when goals are met, if they fail to make progress with conservative management in PT, if their level of progress plateaus, or if they do not maintain compliance with attendance or HEP. At this time, it is my clinical judgment that services are medically necessary. Plan of Care Frequency of Visits: 2 times per week Duration: 6 weeks Interventions: Therapeutic Exercise, Neuromuscular Re-Education, Manual Therapy, Therapeutic/ Functional Activities, Gait Training, Hot/Cold Pack and Vasopneumatic Rehab Potential: good Suicide Screen Signs and Symptoms of Abuse/Neglect: No Actions Taken: No Suicide Risk: Does the patient feel like ending their life today?No Actions Taken: No Patient Education Provided Pt was educated on the benefits of therapy and importance of compliance with sessions and HEP for rehabilitation. Pt was also educated on treatment diagnosis, POC, and frequency/duration of treatment. Clinical Impression Pt would benefit from PT interventions for possible right foot extensor tendon strain to address impairments in gait, ROM, strength and stability, as well as swelling and pain control. Goals: Physical Therapy Ortho Goals: MOBILITY: Patient will be able to ambulate for >1 hour in community without difficulty in 6 weeks. MOBILITY: Patient will be able to ambulate on uneven surfaces without difficulty in 6 weeks. MOBILITY: Patient will be able to ascend/descend stairs without difficulty in 6 weeks. CHANGING MAINTAINING POSITON: Patient will be able to stand for >1 hour without pain in 6 weeks. SELF CARE: Patient will be able to complete ADL's, IADL' s and work activities involving prolonged walking and standing without difficulty in 6 weeks. IMPAIRMENT: Patient will demonstrate improved postural awareness in PT sessions to facilitate mechanical alignment and function in 2 weeks. IMPAIRMENT: Improve pain from 5/10 to <2/10 during prolonged standing and walking in 4 weeks. IMPAIRMENT: Improve MMT of Right Ankle Inversion from 4+/5 to 5/5 in 4 weeks. IMPAIRMENT: Improve gross ROM of Right Ankle to WFL in 6 weeks. OTHER: Patient will increase FOTO score to at least 69 to show MDC/MCII and expected functional outcome in 6 weeks. OTHER: Patient will be able to properly demonstrate independence with HEP in 1 week. Treatment directed and supervised by supervising therapist: Issac Ibarra PT, DPT. Shelia Dash No licensure found in state: [place] Issac Ibarra PT, DPT State License, [id number] documented in this encounter [facility] 09-04-2020 History of Present illness Narrative Images from the original note were not included. Established Patient Visit Raquel Anderson DPM Patient Name: Nevaeh Morgan. . Date of : 1995, 25 y.o.. Gender: female. Subjective: Patient is a pleasant 24-year-old female who presents to clinic for follow-up right foot sprain. Patient has recently sprained her foot when she was picking up her son from her [facility] place. She has been ambulating using a Cam boot and admits to some improvement while in the boot. However when she steps of the boot, she does continue to experience some shooting pain from the top of her foot. She states that she has been taking meloxicam but not daily. No other pedal complaints at this time. Patient denies any fevers, chills, nausea, vomiting, chest pain, shortness of breath or any other constitutional symptoms. Physical Examination: BP 117/80 Pulse 82 Temp 98.2 F (36.8 C) Ht 5' 3 Wt 90.7 kg (200 lb) BMI 35.43 kg/m General Appearance: Alert, cooperative, no distress, appears stated age. Podiatric Exam Vascular: DP and PT pulses are palpable 2/4 bilaterally. Capillary refill time is brisk to distal digits. No appreciable edema noted bilaterally. Hair growth present. Skin temperature is warm to warm from proximal tibial tuberosity to distal digits. Neuro: Gross sensation intact to bilateral lower extremities. Dermatologic: The previously noted ecchymosis on the dorsum of her right foot has resolved. Mild residual swelling noted. Nails 1 through 10 are within normal limits. No open lesions or ulcerations noted. Interdigital spaces are clean dry and intact. Musculoskeletal: Pain on palpation to the dorsal lateral aspect of the right foot overlying the extenser digitorum brevis muscle. Ankle joint range of motion is intact without pain or crepitus. Muscle strength is 5/5 to all plantar flexors, dorsiflexors, inverters and everters. Compartments are soft and compressible. No calf pain. Assessment: 1. Right foot sprain, subsequent encounter Ambulatory Ref to [facility] (PT/OT/ST) 2. Right foot pain Plan: Patient was seen and evaluated. Discussed all clinical and radiographic findings. No evidence for fracture dislocation as previously reviewed on radiographs. Patient has a right foot sprain along the tarsal ligaments. Recommended the patient continues to ambulate using her Cam boot. Patient is to continue to ice, elevate and offload. An Gianni bandage was placed onto her right foot. Patient is to keep compression of her right foot. Patient is instructed to take meloxicam daily, otherwise, it will not be effective. An order for physical therapy was placed. This is medical necessary to regain proper function of her right foot. Physical therapy sessions are 2 3 times per week and up to 4 weeks. Follow-up in 4 weeks for evaluation All questions were answered to patient satisfaction. Patient understands to call with any questions or concerns. Raquel Anderson DPM, MS Podiatric Physician & Surgeon documented in this encounter [facility] 08-28-2020 History of Present illness Narrative Images from the original note were not included. Patient Name: [facility] Location: Nevaeh Villegas [address] [facility] [place] [id number] Date Of : Date Of Visit: 1995 08/28/2020 MRN# Provider: [id number] Chinyere Morrison CNP Chief Complaint Patient presents with Poison Muna Poison muna to abdomen, bruising Assessment & Plan Medical Decision Making Thinks has poison muna, treating with kenalog which has only been partially helpful. Will prescribe prednisone taper. Additional Clinical Comments Subjective 25 y.o. female presents with Poison Muna (Poison muna to abdomen, bruising) Presents with itchy rash that she believes is poison muna. Has been treating with kenalog cream which has helped a little but still very itchy Poison Muna This is a new problem. Episode onset: 2 weeks. The problem has been gradually improving since onset. The affected locations include the abdomen. The rash is characterized by redness and itchiness. Associated with: think plant oils. Pertinent negatives include no facial edema, fever or shortness of breath. Treatments tried: kenalog. The treatment provided mild relief. Review Of Systems Review of Systems Constitutional: Negative for fever. Respiratory: Negative for shortness of breath. Skin: Positive for rash. Medical History Past Medical History: Diagnosis Date Ankle swelling Foot pain, right Headache Metatarsal fracture Obesity Right foot sprain Seasonal allergies Talus fracture Past Surgical History: Procedure Laterality Date INTRAUTERINE DEVICE INSERTION 06/2014 Patient Active Problem List Diagnosis Fatigue BMI 40.0-44.9, adult ([facility]) Screening for heart disease Vitamin D deficiency Low HDL (under 40) Itchy eyes Foot pain, right Right foot sprain Ankle swelling Headache Metatarsal fracture Obesity Talus fracture Social History Social History Tobacco Use Smoking status: Never Smoker Smokeless tobacco: Never Used Vaping Use Vaping Use: Never used Substance Use Topics Alcohol use: Yes Comment: occasionally Drug use: Never Family History Family History Problem Relation Age of Onset Hypothyroidism Mother Tourette syndrome Brother Lung cancer Maternal Grandmother ALFA disease Maternal Grandmother Diabetes type II Maternal Grandfather Hypertension Maternal Grandfather Hypotension Paternal Grandfather Hyperlipidemia Father Objective Physical Exam BP 112/71 (BP Location: Left arm, Patient Position: Sitting, BP Cuff Size: Adult) Pulse 85 Temp 98.3 F (36.8 C) (Infrared) Resp 16 Ht 5' 3 Wt 90.7 kg (200 lb) SpO2 97% BMI 35.43 kg/m Vision/Hearing Exam:No exam data present Physical Exam Vitals and nursing note reviewed. Constitutional: General: She is not in acute distress. Appearance: She is well-developed. She is not ill-appearing or toxic-appearing. Pulmonary: Effort: Pulmonary effort is normal. Skin: General: Skin is warm and dry. Findings: Erythema and rash present. Rash is macular and papular. Rash is not pustular or vesicular. Neurological: Mental Status: She is alert and oriented to person, place, and time. GCS: GCS eye subscore is 4. GCS verbal subscore is 5. GCS motor subscore is 6. Psychiatric: Mood and Affect: Mood normal. Behavior: Behavior normal. Procedure Notes Procedures Results No results found for this or any previous visit (from the past 168 hour(s)). No orders to display Orders Placed This Visit No orders of the defined types were placed in this encounter. Medication List At End Of Visit Current Outpatient Medications Medication Sig Dispense Refill levonorgestrel (MIRENA) 20 mcg/24 hours (5 yrs) 52 mg IUD 1 each by Intrauterine route once . meloxicam (MOBIC) 15 MG tablet triamcinolone (KENALOG) 0.5 % cream acetaminophen (TYLENOL) 325 MG tablet Take 650 mg by mouth every 6 (six) hours as needed for pain . benzonatate (Tessalon Perles) 100 MG capsule Take one or two capsules every 8 hours as needed for cough. Do not chew. . (Patient not taking: Reported on 08/14/2020 .) 60 capsule 1 ergocalciferol (ERGOCALCIFEROL) 50,000 unit capsule Take 1 (one) capsule (50,000 Units total) by mouth once a week . 13 capsule 1 predniSONE (DELTASONE) 10 MG tablet Prednisone 10 mg, to taper over 12 days, 2 days each dose: 60, 50, 40, 30, 20, 10. . 42 tablet 0 No current facility-administered medications for this visit. Patient Instructions Complete antibiotic and prednisone prescriptions as prescribed. Consider Zanfel, over the counter poison muna, oak, and sumac wash. Can continue calamine as a drying agent. Follow-up with your primary provider (or return to clinic if your do not have a primary care provider) if not better in 5 to 7 days or earlier if condition worsens. Hope you are soon feeling better! Poison Muna, Ridge, and Sumac: Care Instructions Your Care Instructions Poison muna, poison oak, and poison sumac are plants that can cause a skin rash upon contact. The red, itchy rash often shows up in lines or streaks and may cause fluid-filled blisters or large, raised hives. The rash is caused by an allergic reaction to an oil in poison muna, oak, and sumac. The rash may occur when you touch the plant or when you touch clothing, pet fur, sporting gear, gardening tools, or other objects that have come in contact with one of these plants. You cannot catch or spread the rash, even if you touch it or the blister fluid, because the plant oil will already have been absorbed or washed off the skin. The rash may seem to be spreading, but either it is still developing from earlier contact or you have touched something that still has the plant oil on it. Follow-up care is a black part of your treatment and safety. Be sure to make and go to all appointments, and call your doctor if you are having problems. It's also a good idea to know your test results and keep a list of the medicines you take. How can you care for yourself at home? If your doctor prescribed a cream, use it as directed. If your doctor prescribed medicine, take it exactly as prescribed. Call your doctor if you think you are having a problem with your medicine. Use cold, wet cloths to reduce itching. Keep cool, and stay out of the sun. Leave the rash open to the air. Wash all clothing or other things that may have come in contact with the plant oil. Avoid most lotions and ointments until the rash heals. Calamine lotion may help relieve symptoms of a plant rash. Use it 3 or 4 times a day. To prevent poison muna exposure If you know that you will be near poison muna, oak, or sumac, you can try these options: Use a product designed to help prevent plant oil from getting on the skin. These products, such as Muna X Pre-Contact Skin Solution, come in lotions, sprays, or towelettes. You put the product on your skin right before you go outdoors. If you did not use a preventive product and you have had contact with plant oil, clean it off your skin as soon as possible. Use a product such as [employer] Original Outdoor Skin Cleanser. These products can also be used to clean plant oil from clothing or tools. When should you call for help? Call your doctor now or seek immediate medical care if: Your rash gets worse, and you start to feel bad and have a fever, a stiff neck, nausea, and vomiting. You have signs of infection, such as: ? Increased pain, swelling, warmth, or redness. ? Red streaks leading from the rash. ? Pus draining from the rash. ? A fever. Watch closely for changes in your health, and be sure to contact your doctor if: You have new blisters or bruises, or the rash spreads and looks like a sunburn. The rash gets worse, or it comes back after nearly disappearing. You think a medicine you are using is making your rash worse. Your rash does not clear up after 1 to 2 weeks of home treatment. You have joint aches or body aches with your rash. Where can you learn more? Log into your personal health record on https://[employer] and enter W882 in the Education box to learn more about Poison Muna, Ridge, and Sumac: Care Instructions. Current as of: September 09, 2019 Content Version: 12.7 [employer]. Care instructions adapted under license by your [facility] professional. If you have questions about a medical condition or this instruction, always ask your healthcare professional. [employer] disclaims any warranty or liability for your use of this information. Dermatitis: Care Instructions Your Care Instructions Dermatitis is the general name used for any rash or inflammation of the skin. Different kinds of dermatitis cause different kinds of rashes. Common causes of a rash include new medicines, plants (such as poison oak or poison muna), heat, and stress. Certain illnesses can also cause a rash. An allergic reaction to something that touches your skin, such as latex, nickel, or poison muna, is called contact dermatitis. Contact dermatitis may also be caused by something that irritates the skin, such as bleach, a chemical, or soap. These types of rashes cannot be spread from person to person. How long your rash will last depends on what caused it. Rashes may last a few days or months. Follow-up care is a black part of your treatment and safety. Be sure to make and go to all appointments, and call your doctor if you are having problems. It's also a good idea to know your test results and keep a list of the medicines you take. How can you care for yourself at home? Do not scratch the rash. Cut your nails short, and file them smooth. Or wear gloves if this helps keep you from scratching. Wash the area with water only. Pat dry. Put cold, wet cloths on the rash to reduce itching. Keep cool, and stay out of the sun. Leave the rash open to the air as much as possible. If the rash itches, use hydrocortisone cream. Follow the directions on the label. Calamine lotion may help for plant rashes. Take an kijh-fgj-eyqhhos antihistamine, such as diphenhydramine (Benadryl) or loratadine (Claritin), to help calm the itching. Read and follow all instructions on the label. If your doctor prescribed a cream, use it as directed. If your doctor prescribed medicine, take it exactly as directed. When should you call for help? Call your doctor now or seek immediate medical care if: 1. You have symptoms of infection, such as: ? Increased pain, swelling, warmth, or redness. ? Red streaks leading from the area. ? Pus draining from the area. ? A fever. You have joint pain along with the rash. Watch closely for changes in your health, and be sure to contact your doctor if: Your rash is changing or getting worse. You are not getting better as expected. Where can you learn more? Log into your personal health record on https://[employer] and enter F270 in the Education box to learn more about Dermatitis: Care Instructions. Current as of: September 09, 2019 Content Version: 12.8 [employer]. Care instructions adapted under license by your healthcare professional. If you have questions about a medical condition or this instruction, always ask your healthcare professional. [employer] disclaims any warranty or liability for your use of this information. documented in this encounter [facility] 08-28-2020 Instructions Chinyere Morrison CNP - 08/28/2020 5:52 PM EDT Images from the original note were not included. Complete antibiotic and prednisone prescriptions as prescribed. Consider Zanfel, over the counter poison muna, oak, and sumac wash. Can continue calamine as a drying agent. Follow-up with your primary provider (or return to clinic if your do not have a primary care provider) if not better in 5 to 7 days or earlier if condition worsens. Hope you are soon feeling better! Poison Muna, Ridge, and Sumac: Care Instructions Your Care Instructions Poison muna, poison oak, and poison sumac are plants that can cause a skin rash upon contact. The red, itchy rash often shows up in lines or streaks and may cause fluid-filled blisters or large, raised hives. The rash is caused by an allergic reaction to an oil in poison muna, oak, and sumac. The rash may occur when you touch the plant or when you touch clothing, pet fur, sporting gear, gardening tools, or other objects that have come in contact with one of these plants. You cannot catch or spread the rash, even if you touch it or the blister fluid, because the plant oil will already have been absorbed or washed off the skin. The rash may seem to be spreading, but either it is still developing from earlier contact or you have touched something that still has the plant oil on it. Follow-up care is a black part of your treatment and safety. Be sure to make and go to all appointments, and call your doctor if you are having problems. It's also a good idea to know your test results and keep a list of the medicines you take. How can you care for yourself at home? If your doctor prescribed a cream, use it as directed. If your doctor prescribed medicine, take it exactly as prescribed. Call your doctor if you think you are having a problem with your medicine. Use cold, wet cloths to reduce itching. Keep cool, and stay out of the sun. Leave the rash open to the air. Wash all clothing or other things that may have come in contact with the plant oil. Avoid most lotions and ointments until the rash heals. Calamine lotion may help relieve symptoms of a plant rash. Use it 3 or 4 times a day. To prevent poison muna exposure If you know that you will be near poison muna, oak, or sumac, you can try these options: Use a product designed to help prevent plant oil from getting on the skin. These products, such as Muna X Pre-Contact Skin Solution, come in lotions, sprays, or towelettes. You put the product on your skin right before you go outdoors. If you did not use a preventive product and you have had contact with plant oil, clean it off your skin as soon as possible. Use a product such as [employer] Original Outdoor Skin Cleanser. These products can also be used to clean plant oil from clothing or tools. When should you call for help? Call your doctor now or seek immediate medical care if: Your rash gets worse, and you start to feel bad and have a fever, a stiff neck, nausea, and vomiting. You have signs of infection, such as: ? Increased pain, swelling, warmth, or redness. ? Red streaks leading from the rash. ? Pus draining from the rash. ? A fever. Watch closely for changes in your health, and be sure to contact your doctor if: You have new blisters or bruises, or the rash spreads and looks like a sunburn. The rash gets worse, or it comes back after nearly disappearing. You think a medicine you are using is making your rash worse. Your rash does not clear up after 1 to 2 weeks of home treatment. You have joint aches or body aches with your rash. Where can you learn more? Log into your personal health record on https://[employer] and enter W882 in the Education box to learn more about Poison Muna, Ridge, and Sumac: Care Instructions. Current as of: September 09, 2019 Content Version: 12.7 [employer]. Care instructions adapted under license by your [facility] professional. If you have questions about a medical condition or this instruction, always ask your healthcare professional. [employer] disclaims any warranty or liability for your use of this information. Dermatitis: Care Instructions Your Care Instructions Dermatitis is the general name used for any rash or inflammation of the skin. Different kinds of dermatitis cause different kinds of rashes. Common causes of a rash include new medicines, plants (such as poison oak or poison muna), heat, and stress. Certain illnesses can also cause a rash. An allergic reaction to something that touches your skin, such as latex, nickel, or poison muna, is called contact dermatitis. Contact dermatitis may also be caused by something that irritates the skin, such as bleach, a chemical, or soap. These types of rashes cannot be spread from person to person. How long your rash will last depends on what caused it. Rashes may last a few days or months. Follow-up care is a black part of your treatment and safety. Be sure to make and go to all appointments, and call your doctor if you are having problems. It's also a good idea to know your test results and keep a list of the medicines you take. How can you care for yourself at home? Do not scratch the rash. Cut your nails short, and file them smooth. Or wear gloves if this helps keep you from scratching. Wash the area with water only. Pat dry. Put cold, wet cloths on the rash to reduce itching. Keep cool, and stay out of the sun. Leave the rash open to the air as much as possible. If the rash itches, use hydrocortisone cream. Follow the directions on the label. Calamine lotion may help for plant rashes. Take an kapc-qev-hxkxejj antihistamine, such as diphenhydramine (Benadryl) or loratadine (Claritin), to help calm the itching. Read and follow all instructions on the label. If your doctor prescribed a cream, use it as directed. If your doctor prescribed medicine, take it exactly as directed. When should you call for help? Call your doctor now or seek immediate medical care if: 1. You have symptoms of infection, such as: ? Increased pain, swelling, warmth, or redness. ? Red streaks leading from the area. ? Pus draining from the area. ? A fever. You have joint pain along with the rash. Watch closely for changes in your health, and be sure to contact your doctor if: Your rash is changing or getting worse. You are not getting better as expected. Where can you learn more? Log into your personal health record on https://[employer] and enter F270 in the Education box to learn more about Dermatitis: Care Instructions. Current as of: September 09, 2019 Content Version: 12.8 [employer]. Care instructions adapted under license by your healthcare professional. If you have questions about a medical condition or this instruction, always ask your healthcare professional. [employer] disclaims any warranty or liability for your use of this information. documented in this encounter [facility] 08-14-2020 Instructions Prince Chinyere Powellne, [employer] - 08/14/2020 7:16 PM EDT Images from the original note were not included. No fractures noted on today's xray's. Will call you only if there are any abnormalities noted on the final radiologist's findings. Can continue wearing supportive brace. Ankle strengthening exercises when pain improves. Can get at the pharmacy or store acetaminophen (tylenol) and or ibuprofen (motrin) for fever and or pain relief (unless you have been instructed not to take either of these medications). Follow medication labeling instructions for appropriate dosing. Follow-up with your primary provider (or return to clinic if your do not have a primary care provider) if not better in 5 to 7 days or earlier if condition worsens. Ankle Sprain: Care Instructions Your Care Instructions An ankle sprain can happen when you twist your ankle. The ligaments that support the ankle can get stretched and torn. Often the ankle is swollen and painful. Ankle sprains may take from several weeks to several months to heal. Usually, the more pain and swelling you have, the more severe your ankle sprain is and the longer it will take to heal. You can heal faster and regain strength in your ankle with good home treatment. It is very important to give your ankle time to heal completely, so that you do not easily hurt your ankle again. Follow-up care is a black part of your treatment and safety. Be sure to make and go to all appointments, and call your doctor if you are having problems. It's also a good idea to know your test results and keep a list of the medicines you take. How can you care for yourself at home? Prop up your foot on pillows as much as possible for the next 3 days. Try to keep your ankle above the level of your heart. This will help reduce the swelling. Follow your doctor's directions for wearing a splint or elastic bandage. Wrapping the ankle may help reduce or prevent swelling. Your doctor may give you a splint, a brace, an air stirrup, or another form of ankle support to protect your ankle until it is healed. Wear it as directed while your ankle is healing. Do not remove it unless your doctor tells you to. After your ankle has healed, ask your doctor whether you should wear the brace when you exercise. Put ice or cold packs on your injured ankle for 10 to 20 minutes at a time. Try to do this every 1 to 2 hours for the next 3 days (when you are awake) or until the swelling goes down. Put a thin cloth between the ice and your skin. You may need to use crutches until you can walk without pain. If you do use crutches, try to bear some weight on your injured ankle if you can do so without pain. This helps the ankle heal. Take pain medicines exactly as directed. ? If the doctor gave you a prescription medicine for pain, take it as prescribed. ? If you are not taking a prescription pain medicine, ask your doctor if you can take an mwgm-kwa-azxpcau medicine. If you have been given ankle exercises to do at home, do them exactly as instructed. These can promote healing and help prevent lasting weakness. When should you call for help? Call your doctor now or seek immediate medical care if: Your pain is getting worse. Your swelling is getting worse. Your splint feels too tight or you are unable to loosen it. Watch closely for changes in your health, and be sure to contact your doctor if: You are not getting better after 1 week. Where can you learn more? Log into your personal health record on https://[employer] and enter S771 in the Education box to learn more about Ankle Sprain: Care Instructions. Current as of: January 24, 2020 Content Version: 12.8 [employer]. Care instructions adapted under license by your healthcare professional. If you have questions about a medical condition or this instruction, always ask your healthcare professional. [employer] disclaims any warranty or liability for your use of this information. Learning About RICE (Rest, Ice, Compression, and Elevation) What is RICE? RICE is a way to care for an injury. RICE helps relieve pain and swelling. It may also help with healing and flexibility. RICE stands for: R est and protect the injured or sore area. I ce or a cold pack used as soon as possible. C ompression, or wrapping the injured or sore area with an elastic bandage. E levation (propping up) the injured or sore area. How do you do RICE? You can use RICE for home treatment when you have general aches and pains or after an injury or surgery. Rest Do not put weight on the injury for at least 24 to 48 hours. Use crutches for a badly sprained knee or ankle. Support a sprained wrist, elbow, or shoulder with a sling. Ice Put ice or a cold pack on the injury right away to reduce pain and swelling. Frozen vegetables will also work as an ice pack. Put a thin cloth between the ice or cold pack and your skin. The cloth protects the injured area from getting too cold. Use ice for 10 to 15 minutes at a time for the first 48 to 72 hours. Compression Use compression for sprains, strains, and surgeries of the arms and legs. Wrap the injured area with an elastic bandage or compression sleeve to reduce swelling. Don't wrap it too tightly. If the area below it feels numb, tingles, or feels cool, loosen the wrap. Elevation Use elevation for areas of the body that can be propped up, such as arms and legs. Prop up the injured area on pillows whenever you use ice. Keep it propped up anytime you sit or lie down. Try to keep the injured area at or above the level of your heart. This will help reduce swelling and bruising. Where can you learn more? Log into your personal health record on https://[employer] and enter I463 in the Education box to learn more about Learning About RICE (Rest, Ice, Compression, and Elevation). Current as of: January 24, 2020 Content Version: 12.8 [employer]. Care instructions adapted under license by your healthcare professional. If you have questions about a medical condition or this instruction, always ask your healthcare professional. [employer] disclaims any warranty or liability for your use of this information. Foot Pain: Care Instructions Your Care Instructions Foot injuries that cause pain and swelling are fairly common. Almost all sports or home repair projects can cause a misstep that ends up as foot pain. Normal wear and tear, especially as you get older, also can cause foot pain. Most minor foot injuries will heal on their own, and home treatment is usually all you need to do. If you have a severe injury, you may need tests and treatment. Follow-up care is a black part of your treatment and safety. Be sure to make and go to all appointments, and call your doctor if you are having problems. It's also a good idea to know your test results and keep a list of the medicines you take. How can you care for yourself at home? Take pain medicines exactly as directed. ? If the doctor gave you a prescription medicine for pain, take it as prescribed. ? If you are not taking a prescription pain medicine, ask your doctor if you can take an cndf-kwb-pphedzr medicine. Rest and protect your foot. Take a break from any activity that may cause pain. Put ice or a cold pack on your foot for 10 to 20 minutes at a time. Put a thin cloth between the ice and your skin. Prop up the sore foot on a pillow when you ice it or anytime you sit or lie down during the next 3 days. Try to keep it above the level of your heart. This will help reduce swelling. Your doctor may recommend that you wrap your foot with an elastic bandage. Keep your foot wrapped for as long as your doctor advises. If your doctor recommends crutches, use them as directed. Wear roomy footwear. As soon as pain and swelling end, begin gentle exercises of your foot. Your doctor can tell you which exercises will help. When should you call for help? Call 911 anytime you think you may need emergency care. For example, call if: Your foot turns pale, white, blue, or cold. Call your doctor now or seek immediate medical care if: You cannot move or stand on your foot. Your foot looks twisted or out of its normal position. Your foot is not stable when you step down. You have signs of infection, such as: ? Increased pain, swelling, warmth, or redness. ? Red streaks leading from the sore area. ? Pus draining from a place on your foot. ? A fever. Your foot is numb or tingly. Watch closely for changes in your health, and be sure to contact your doctor if: You do not get better as expected. You have bruises from an injury that last longer than 2 weeks. Where can you learn more? Log into your personal health record on https://[employer] and enter D999 in the Education box to learn more about Foot Pain: Care Instructions. Current as of: January 24, 2020 Content Version: 12.8 [employer]. Care instructions adapted under license by your healthcare professional. If you have questions about a medical condition or this instruction, always ask your healthcare professional. [employer] disclaims any warranty or liability for your use of this information. Ankle: Exercises Introduction Here are some examples of exercises for you to try. The exercises may be suggested for a condition or for rehabilitation. Start each exercise slowly. Ease off the exercises if you start to have pain. You will be told when to start these exercises and which ones will work best for you. How to do the exercises 'Alphabet' exercise 1. Trace the alphabet with your toe. This helps your ankle move in all directions. Sveh-it-yjfp knee swing exercise 1. Sit in a chair with your foot flat on the floor. 2. Slowly move your knee from side to side while keeping your foot pressed flat. 3. Continue this exercise for 2 to 3 minutes. Towel curl 1. While sitting, place your foot on a towel on the floor and scrunch the towel toward you with your toes. 2. Then use your toes to push the towel away from you. 3. Make this exercise more challenging by placing a weighted object, such as a soup can, on the other end of the towel. Towel stretch 1. Sit with your legs extended and knees straight. 2. Place a towel around your foot just under the toes. 3. Hold each end of the towel in each hand, with your hands above your knees. 4. Pull back with the towel so that your foot stretches toward you. 5. Hold the position for at least 15 to 30 seconds. 6. Repeat 2 to 4 times a session, up to 5 sessions a day. Ankle eversion exercise 1. Start by sitting with your foot flat on the floor and pushing it outward against an immovable object such as the wall or heavy furniture. Hold for about 6 seconds, then relax. Repeat 8 to 12 times. 2. After you feel comfortable with this, try using rubber tubing looped around the outside of your feet for resistance. Push your foot out to the side against the tubing, and then count to 10 as you slowly bring your foot back to the middle. Repeat 8 to 12 times. Isometric opposition exercises 1. While sitting, put your feet together flat on the floor. 2. Press your injured foot inward against your other foot. Hold for about 6 seconds, and relax. Repeat 8 to [address] the heel of your other foot on top of the injured one. Push down with the top heel while trying to push up with your injured foot. Hold for about 6 seconds, and relax. Repeat 8 to 12 times. Follow-up care is a black part of your treatment and safety. Be sure to make and go to all appointments, and call your doctor if you are having problems. It's also a good idea to know your test results and keep a list of the medicines you take. Where can you learn more? Log into your personal health record on https://[employer] and enter R730 in the Education box to learn more about Ankle: Exercises. Current as of: January 24, 2020 Content Version: 12.8 [employer]. Care instructions adapted under license by your healthcare professional. If you have questions about a medical condition or this instruction, always ask your healthcare professional. [employer] disclaims any warranty or liability for your use of this information. documented in this encounter [facility] 08-14-2020 History of Present illness Narrative Images from the original note were not included. Patient Name: [facility] Location: [place] [address] [facility] [place] [id number] Date Of : Date Of Visit: 1995 08/14/2020 MRN# Provider: [id number] Chinyere Morrison CNP Chief Complaint Patient presents with Ankle Pain Right ankle injury. Fell and rolled right ankle Assessment & Plan Medical Decision Making Presents with right ankle and foot pain after rolling her ankle. Had previous injury to same ankle and foot, had a fracture in ankle and 2 broken bones in the right foot 2 to 3 years ago and has been weak since. Preliminary read of today's xray's of right foot and ankle is negative for fracture. See discharge. Additional Clinical Comments Subjective 24 y.o. female presents with Ankle Pain (Right ankle injury. Fell and rolled right ankle) Presents with right ankle injury/pain. Had previous injury to same ankle and foot, had a fracture in ankle and 2 broken bones in the right foot 2 to 3 years ago and has been weak since. Ankle Pain The incident occurred 1 to 3 hours ago. Incident location: at [facility]. The injury mechanism was an inversion injury and a fall. The pain is present in the right ankle and right foot. The quality of the pain is described as stabbing. The pain is at a severity of 10/10. The pain has been constant since onset. Associated symptoms include tingling (toes). Pertinent negatives include no inability to bear weight, loss of motion (painful to move), loss of sensation or numbness. She reports no foreign bodies present. The symptoms are aggravated by movement, palpation and weight bearing. She has tried ice and acetaminophen (brace) for the symptoms. The treatment provided mild relief. Review Of Systems Review of Systems Constitutional: Negative for fever. Musculoskeletal: Positive for arthralgias (right foot and ankle injury). Skin: Positive for wound (2 abrasions from fall right lower anterior leg). Neurological: Positive for tingling (toes). Negative for numbness. Medical History Past Medical History: Diagnosis Date Seasonal allergies Past Surgical History: Procedure Laterality Date INTRAUTERINE DEVICE INSERTION 06/2014 Patient Active Problem List Diagnosis Fatigue BMI 40.0-44.9, adult ([facility]) Screening for heart disease Vitamin D deficiency Low HDL (under 40) Itchy eyes Social History Social History Tobacco Use Smoking status: Never Smoker Smokeless tobacco: Never Used Vaping Use Vaping Use: Never used Substance Use Topics Alcohol use: Yes Comment: occasionally Drug use: Never Family History Family History Problem Relation Age of Onset Hypothyroidism Mother Tourette syndrome Brother Lung cancer Maternal Grandmother ALFA disease Maternal Grandmother Diabetes type II Maternal Grandfather Hypertension Maternal Grandfather Hypotension Paternal Grandfather Hyperlipidemia Father Objective Physical Exam BP 120/84 (BP Location: Right arm, Patient Position: Sitting, BP Cuff Size: Adult) Pulse 82 Temp 97.5 F (36.4 C) (Infrared) Resp 16 Ht 5' 3 Wt 90.7 kg (200 lb) SpO2 97% BMI 35.43 kg/m Vision/Hearing Exam:No exam data present Physical Exam Vitals and nursing note reviewed. Constitutional: General: She is not in acute distress. Appearance: She is well-developed. She is not ill-appearing or toxic-appearing. Pulmonary: Effort: Pulmonary effort is normal. Musculoskeletal: Right ankle: No swelling, deformity, ecchymosis or lacerations. Tenderness present over the lateral malleolus. Decreased range of motion (painful). Normal pulse. Right Achilles Tendon: Normal. Right foot: Normal range of motion and normal capillary refill. Tenderness and bony tenderness present. No swelling, deformity or laceration. Normal pulse. Legs: Feet: Skin: General: Skin is warm and dry. Neurological: Mental Status: She is alert and oriented to person, place, and time. GCS: GCS eye subscore is 4. GCS verbal subscore is 5. GCS motor subscore is 6. Psychiatric: Mood and Affect: Mood normal. Behavior: Behavior normal. Procedure Notes Procedures Results No results found for this or any previous visit (from the past 168 hour(s)). XR Ankle Right 3+ Views (Standard) Non-public Result Soft tissue swelling overlying the malleolus without acute fracture. There is a small corticated density lateral to the cuboid on the AP view suspicious for an old avulsion injury. Workstation ID: [id number] XR Foot Right 3+ Views (Standard) (Results Pending) Orders Placed This Visit Orders Placed This Encounter Procedures XR Ankle Right 3+ Views (Standard) XR Foot Right 3+ Views (Standard) Wound care Medication List At End Of Visit Current Outpatient Medications Medication Sig Dispense Refill levonorgestrel (MIRENA) 20 mcg/24 hours (5 yrs) 52 mg IUD 1 each by Intrauterine route once . acetaminophen (TYLENOL) 325 MG tablet Take 650 mg by mouth every 6 (six) hours as needed for pain . benzonatate (Tessalon Perles) 100 MG capsule Take one or two capsules every 8 hours as needed for cough. Do not chew. . (Patient not taking: Reported on 08/14/2020 .) 60 capsule 1 ergocalciferol (ERGOCALCIFEROL) 50,000 unit capsule Take 1 (one) capsule (50,000 Units total) by mouth once a week . 13 capsule 1 No current facility-administered medications for this visit. Patient Instructions No fractures noted on today's xray's. Will call you only if there are any abnormalities noted on the final radiologist's findings. Can continue wearing supportive brace. Ankle strengthening exercises when pain improves. Can get at the pharmacy or store acetaminophen (tylenol) and or ibuprofen (motrin) for fever and or pain relief (unless you have been instructed not to take either of these medications). Follow medication labeling instructions for appropriate dosing. Follow-up with your primary provider (or return to clinic if your do not have a primary care provider) if not better in 5 to 7 days or earlier if condition worsens. Ankle Sprain: Care Instructions Your Care Instructions An ankle sprain can happen when you twist your ankle. The ligaments that support the ankle can get stretched and torn. Often the ankle is swollen and painful. Ankle sprains may take from several weeks to several months to heal. Usually, the more pain and swelling you have, the more severe your ankle sprain is and the longer it will take to heal. You can heal faster and regain strength in your ankle with good home treatment. It is very important to give your ankle time to heal completely, so that you do not easily hurt your ankle again. Follow-up care is a black part of your treatment and safety. Be sure to make and go to all appointments, and call your doctor if you are having problems. It's also a good idea to know your test results and keep a list of the medicines you take. How can you care for yourself at home? Prop up your foot on pillows as much as possible for the next 3 days. Try to keep your ankle above the level of your heart. This will help reduce the swelling. Follow your doctor's directions for wearing a splint or elastic bandage. Wrapping the ankle may help reduce or prevent swelling. Your doctor may give you a splint, a brace, an air stirrup, or another form of ankle support to protect your ankle until it is healed. Wear it as directed while your ankle is healing. Do not remove it unless your doctor tells you to. After your ankle has healed, ask your doctor whether you should wear the brace when you exercise. Put ice or cold packs on your injured ankle for 10 to 20 minutes at a time. Try to do this every 1 to 2 hours for the next 3 days (when you are awake) or until the swelling goes down. Put a thin cloth between the ice and your skin. You may need to use crutches until you can walk without pain. If you do use crutches, try to bear some weight on your injured ankle if you can do so without pain. This helps the ankle heal. Take pain medicines exactly as directed. ? If the doctor gave you a prescription medicine for pain, take it as prescribed. ? If you are not taking a prescription pain medicine, ask your doctor if you can take an kzdx-gqn-lwxljcg medicine. If you have been given ankle exercises to do at home, do them exactly as instructed. These can promote healing and help prevent lasting weakness. When should you call for help? Call your doctor now or seek immediate medical care if: Your pain is getting worse. Your swelling is getting worse. Your splint feels too tight or you are unable to loosen it. Watch closely for changes in your health, and be sure to contact your doctor if: You are not getting better after 1 week. Where can you learn more? Log into your personal health record on https://[employer] and enter S771 in the Education box to learn more about Ankle Sprain: Care Instructions. Current as of: January 24, 2020 Content Version: 12.8 [employer]. Care instructions adapted under license by your healthcare professional. If you have questions about a medical condition or this instruction, always ask your healthcare professional. [employer] disclaims any warranty or liability for your use of this information. Learning About RICE (Rest, Ice, Compression, and Elevation) What is RICE? RICE is a way to care for an injury. RICE helps relieve pain and swelling. It may also help with healing and flexibility. RICE stands for: R est and protect the injured or sore area. I ce or a cold pack used as soon as possible. C ompression, or wrapping the injured or sore area with an elastic bandage. E levation (propping up) the injured or sore area. How do you do RICE? You can use RICE for home treatment when you have general aches and pains or after an injury or surgery. Rest Do not put weight on the injury for at least 24 to 48 hours. Use crutches for a badly sprained knee or ankle. Support a sprained wrist, elbow, or shoulder with a sling. Ice Put ice or a cold pack on the injury right away to reduce pain and swelling. Frozen vegetables will also work as an ice pack. Put a thin cloth between the ice or cold pack and your skin. The cloth protects the injured area from getting too cold. Use ice for 10 to 15 minutes at a time for the first 48 to 72 hours. Compression Use compression for sprains, strains, and surgeries of the arms and legs. Wrap the injured area with an elastic bandage or compression sleeve to reduce swelling. Don't wrap it too tightly. If the area below it feels numb, tingles, or feels cool, loosen the wrap. Elevation Use elevation for areas of the body that can be propped up, such as arms and legs. Prop up the injured area on pillows whenever you use ice. Keep it propped up anytime you sit or lie down. Try to keep the injured area at or above the level of your heart. This will help reduce swelling and bruising. Where can you learn more? Log into your personal health record on https://[employer] and enter I463 in the Education box to learn more about Learning About RICE (Rest, Ice, Compression, and Elevation). Current as of: January 24, 2020 Content Version: 12.8 [employer]. Care instructions adapted under license by your healthcare professional. If you have questions about a medical condition or this instruction, always ask your healthcare professional. [employer] disclaims any warranty or liability for your use of this information. Foot Pain: Care Instructions Your Care Instructions Foot injuries that cause pain and swelling are fairly common. Almost all sports or home repair projects can cause a misstep that ends up as foot pain. Normal wear and tear, especially as you get older, also can cause foot pain. Most minor foot injuries will heal on their own, and home treatment is usually all you need to do. If you have a severe injury, you may need tests and treatment. Follow-up care is a black part of your treatment and safety. Be sure to make and go to all appointments, and call your doctor if you are having problems. It's also a good idea to know your test results and keep a list of the medicines you take. How can you care for yourself at home? Take pain medicines exactly as directed. ? If the doctor gave you a prescription medicine for pain, take it as prescribed. ? If you are not taking a prescription pain medicine, ask your doctor if you can take an mbtg-fms-higaked medicine. Rest and protect your foot. Take a break from any activity that may cause pain. Put ice or a cold pack on your foot for 10 to 20 minutes at a time. Put a thin cloth between the ice and your skin. Prop up the sore foot on a pillow when you ice it or anytime you sit or lie down during the next 3 days. Try to keep it above the level of your heart. This will help reduce swelling. Your doctor may recommend that you wrap your foot with an elastic bandage. Keep your foot wrapped for as long as your doctor advises. If your doctor recommends crutches, use them as directed. Wear roomy footwear. As soon as pain and swelling end, begin gentle exercises of your foot. Your doctor can tell you which exercises will help. When should you call for help? Call 911 anytime you think you may need emergency care. For example, call if: Your foot turns pale, white, blue, or cold. Call your doctor now or seek immediate medical care if: You cannot move or stand on your foot. Your foot looks twisted or out of its normal position. Your foot is not stable when you step down. You have signs of infection, such as: ? Increased pain, swelling, warmth, or redness. ? Red streaks leading from the sore area. ? Pus draining from a place on your foot. ? A fever. Your foot is numb or tingly. Watch closely for changes in your health, and be sure to contact your doctor if: You do not get better as expected. You have bruises from an injury that last longer than 2 weeks. Where can you learn more? Log into your personal health record on https://[employer] and enter D999 in the Education box to learn more about Foot Pain: Care Instructions. Current as of: January 24, 2020 Content Version: 12.8 [employer]. Care instructions adapted under license by your healthcare professional. If you have questions about a medical condition or this instruction, always ask your healthcare professional. [employer] disclaims any warranty or liability for your use of this information. Ankle: Exercises Introduction Here are some examples of exercises for you to try. The exercises may be suggested for a condition or for rehabilitation. Start each exercise slowly. Ease off the exercises if you start to have pain. You will be told when to start these exercises and which ones will work best for you. How to do the exercises 'Alphabet' exercise 1. Trace the alphabet with your toe. This helps your ankle move in all directions. Aigv-mb-tfob knee swing exercise 1. Sit in a chair with your foot flat on the floor. 2. Slowly move your knee from side to side while keeping your foot pressed flat. 3. Continue this exercise for 2 to 3 minutes. Towel curl 1. While sitting, place your foot on a towel on the floor and scrunch the towel toward you with your toes. 2. Then use your toes to push the towel away from you. 3. Make this exercise more challenging by placing a weighted object, such as a soup can, on the other end of the towel. Towel stretch 1. Sit with your legs extended and knees straight. 2. Place a towel around your foot just under the toes. 3. Hold each end of the towel in each hand, with your hands above your knees. 4. Pull back with the towel so that your foot stretches toward you. 5. Hold the position for at least 15 to 30 seconds. 6. Repeat 2 to 4 times a session, up to 5 sessions a day. Ankle eversion exercise 1. Start by sitting with your foot flat on the floor and pushing it outward against an immovable object such as the wall or heavy furniture. Hold for about 6 seconds, then relax. Repeat 8 to 12 times. 2. After you feel comfortable with this, try using rubber tubing looped around the outside of your feet for resistance. Push your foot out to the side against the tubing, and then count to 10 as you slowly bring your foot back to the middle. Repeat 8 to 12 times. Isometric opposition exercises 1. While sitting, put your feet together flat on the floor. 2. Press your injured foot inward against your other foot. Hold for about 6 seconds, and relax. Repeat 8 to [address] times[address] the heel of your other foot on top of the injured one. Push down with the top heel while trying to push up with your injured foot. Hold for about 6 seconds, and relax. Repeat 8 to 12 times. Follow-up care is a black part of your treatment and safety. Be sure to make and go to all appointments, and call your doctor if you are having problems. It's also a good idea to know your test results and keep a list of the medicines you take. Where can you learn more? Log into your personal health record on https://[employer] and enter R730 in the Education box to learn more about Ankle: Exercises. Current as of: January 24, 2020 Content Version: 12.8 [employer]. Care instructions adapted under license by your healthcare professional. If you have questions about a medical condition or this instruction, always ask your healthcare professional. [employer] disclaims any warranty or liability for your use of this information. documented in this encounter [facility] 08-14-2009 History of Present illness Narrative LOW BACK PAIN 6-7/10 ON ND OFF X 3 MONTHS SINCE THE LUMBAR PUNCTURE . HAD TO DO LP BY NEUROLOGIST FOR HEADACHE, WHICH WAS NEGATIVE, BUT DEVELOPED LOW BACK PAIN WITH RADICULOPATHY SINCE THEN. DENIES ANY TRAUMA. [facility] Internal Medicine Work Phone: 07-13-2009 History of Present illness Narrative F/U ON XR OF LOW BACK. HAS THE LOW BACK PAIN 5-6/10 ON AND OFF FOR ALMOST 1 MONTH. PREDNISONE TX HELPED A LITTLE. NO H/O TRAUMA, BUT HAS BEHIND THE DESK JOB AND HAS TO SIT DOWN FOR HOURS.WHICH MAKES THE PAIN WORSE. [facility] Internal Medicine Work Phone: documented in this encounter [facility] note* Diagnosis Foot pain, right Pain in soft tissues of limb [facility] Diagnosis Contact dermatitis due to plant- Primary [facility] Diagnosis Right foot sprain, subsequent encounter- Primary Right foot pain Pain in soft tissues of limb [facility] Diagnosis Right foot sprain, subsequent encounter [facility] Diagnosis Right foot sprain, subsequent encounter- Primary Right foot pain Pain in soft tissues of limb [facility] Diagnosis Sprain of right foot, initial encounter- Primary [facility] Diagnosis Sprain of right foot, initial encounter- Primary documented in this encounter [facility] note* Diagnosis Sprain of right foot, initial encounter- Primary [facility] Diagnosis Sprain of right foot, initial encounter- Primary [facility]* Diagnosis Right foot sprain, subsequent encounter- Primary Right foot pain Pain in soft tissues of limb [facility]* Diagnosis Right foot sprain, subsequent encounter- Primary Right foot pain Pain in soft tissues of limb Plantar fascial fibromatosis of left foot Foot pain, left Pain in soft tissues of limb [facility]* Diagnosis Sore throat- Primary Acute pharyngitis Nasal congestion Other diseases of nasal cavity and sinuses [facility]* Diagnosis Folliculitis of axilla- Primary [facility]* Diagnosis Folliculitis- Primary Other specified disease of hair and hair follicles [facility]* Diagnosis Facial contusion, subsequent encounter- Primary Periorbital swelling [facility]* Diagnosis Sprain of right ankle, unspecified ligament, initial encounter- Primary Acute right ankle pain Acute right ankle pain [facility]* Diagnosis Sprain of anterior talofibular ligament of right ankle, initial encounter- Primary [facility]* Diagnosis Sprain of anterior talofibular ligament of right ankle, initial encounter- Primary [facility] arrives to outpatient PT c/o . Pt presents with the following impairments: . These impairments contribute to difficulty in activity limitations and participation restrictions including . Thept s signs and symptoms are consistent with likely . The pt will benefit from skilled PT ipbwcwdl0p/week for 8 weeks to address the above stated impairments and functional limitations to maximize p articipation and ease in household, social, and work related activities. The pt has a prognosis when considering positive factors including with barriers such as . The pt verbalized understanding and agreement to goals and POC. Thank you for this referral and please call [phone] with any questions or concerns. * Clinical Presentation: Stable and/or uncomplicated characteristics. * Level of Complexity: low * Problem List: activity limitations, ADLs/IADLs/self care skills, decreased knowledge of HEP, flexibility, pain, participation restrictions, posture, range of motion/joint mobility and strength. [facility] Work Phone: History of Present illness Narrative* Nevaeh Morgan, a 26 year old female, arrives to outpatient PT c/o low back pain. Pt presents withthe following impairments: low back pain, deficits in AROM of lumbar region, deficits in core and Bhip and knee musculature strength, restrictions of surrounding lumbar musculature, and deficits of functional mobility per ROSALINA score. These impairments contribute to difficulty in activity limitations and participation restrictions including standing, sitting, household management, lifting, and performance of job duties. The pt s signs and symptoms are consistent with likely muscular imbalances influencing pain patterns. The pt will benefit from skilled PT services 2x/week for 3 weeks to address the above stated impairments and functional limitations to maximize participation and ease in household, social, and work related activities. The pt has a good prognosis when considering positive factors including age and PLOF with barriers such as chronicity of symptoms. Education in use of core musculature with transfers as well as ADL performance with verbalization of understanding. At this time, patient does demonstrate extension bias with relief of symptoms versus flexion. Education of prone and core exercises in HEP with good understanding. No change in pain throughout session. The pt verbalized understanding and agreement to goals and POC. Thank you for this referral and please [phone] with any questions or concerns. * Clinical Presentation: Stable and/or uncomplicated characteristics. * Level of Complexity: low * Problem List: activity limitations, ADLs/IADLs/self care skills, decreased knowledge of HEP, flexibility, pain, participation restrictions, posture, range of motion/joint mobility and strength. [facility] Work Phone: History of Present illness Narrative* Patient identified by name and * Patient appropriately challenged. Patient demo's good form throughout treatment. Demo's difficulty with flexion based exercises, but good tolerance to extension based exercises. Patient tolerates PRE's with no exacerbation of symptoms. [facility] Work Phone: History of Present illness NarrativePatient. [facility] Work Phone: History of Present illness NarrativeF/U ON LOW BACK PAIN WHICH STARTED AFTER HAVING THE LUMBAR PUNCTURE DONE (PENDING NEUROLOGIST F/U ).. CURRENTLY GETS PHYSICAL TX BUT DOESN'T HELP MUCH. DIDN'T TAKE THE PRN FLEXERIL (WAS AFRAID OF SIDE EFFECTS).[facility] Work Phone: History of Present illness NarrativeNo increase in pain with standing hip and core exercises. Focused on manual therapy techniques thisdate d/t acute onset of low back pain at beginning of session. Noted restriction of lumbar paraspinals bilaterally. Increased mobility at end of treatment session with mild improvement in pain by endof session. [facility] Work Phone: History of Present illness Narrative* Nevaeh Morgan is progressing fairly through their POC addressing low back pain. The pt demonstrates and verbalizes improvements in low back pain, lumbar AROM in lateral flexion and B rotation, B hip, knee, and core strength, and functional mobility per ROSALINA score. This contributes to greater ease with ambulation and standing however pt is still experiencing difficulty with low back pain especially with extended standing and ambulation. Patient has attended 7 therapy visits including initial evaluation with therapeutic exercise and manual therapy interventions. She is currently meeting or partially meeting all current therapy goals. Overall improvement in strength but patient continues to present with low back pain in mid lumbar region. Patient demonstrate good mechanics with HEP addressing B hip and core strength. Educated to progress with standing hip exercises at home to improve endurance of lumbar and hip musculature. Patient would benefit from follow-up with pain management and neurologist regarding remaining impairments prior to continuation with skilled PT interventions with patient verbalizing agreement to plan. * Pt is being placed on hold for 30 days to attempt performing their home exercise program independently. Pt instructed to contact with any problems, questions, or adjustments. This will serve as the patient s discharge if they elect not to resume skilled PT within 30 days. Pt verbalized understanding and agreement to goals and POC. Thank you for this referral and please call [phone] with any questions or concerns. [facility] Work Phone: Reason for visit Narrative* Initial Evaluation . Low back pain; muscle spasm. * Referred by: Elzbieta [facility] Work Phone: Summary Purpose Family History No Family History Records Found Grandmother Name Dates Details Family history of type 2 romi betes mellitus(V18.0, Z83.3) Status:Active Family history of lung cance r(V16.1, Z80.1) Status:Active Family history of metastatic neoplastic disease(V16.9, Z80.9) Status:Active Family history of Blood clot in vein(453.9, I82.90) Status:Active Grandfather Name Dates Details Family history of type 2 romi betes mellitus(V18.0, Z83.3) Status:Active Family history of cardiac di sorder(V17.49, Z82.49) Status:Active Family history of myocardial infarction(V17.3, Z82.49) Status:Active Grandmother Name Dates Details Family history of type 2 romi betes mellitus(V18.0, Z83.3) Status:Active Mother Name Dates Details Family history of hypothyroi dism(V18.19, Z83.49) Status:Active Family history of H/O thyroi dectomy(V15.29, Z90.09) Status:Active Father Name Dates Details Family history of hypertensi on(V17.49, Z82.49) Status:Active Grandfather Name Dates Details Family history of type 2 romi betes mellitus(V18.0, Z83.3) Status:Active Family history of hypothyroi dism(V18.19, Z83.49) Status:Active Unknown Family Member Name Dates Details Family history of type 2 romi betes mellitus: Maternal Grandmother, Paternal Grandmother, Maternal Grandfather, Paternal Grandfather(V18.0, Z83.3) Status:Active Family history of lung cance r: Maternal Grandmother(V16.1, Z80.1) Status:Active Family history of metastatic neoplastic disease: Maternal Grandmother(V16.9, Z80.9) Status:Active Family history of cardiac di sorder: Paternal Grandfather(V17.49, Z82.49) Status:Active Family history of myocardial infarction: Paternal Grandfather(V17.3, Z82.49) Status:Active Family history of hypertensi on: Father(V17.49, Z82.49) Status:Active Family history of hypothyroi dism: Mother, Maternal Grandfather(V18.19, Z83.49) Status:Active H/O thyroidectomy: Mother(24 6.8, E89.0) Status:Active Blood clot in vein: Maternal Grandmother Status:Active Unknown Family Member Name Dates Details Family history of type 2 romi betes mellitus: Maternal Grandmother, Paternal Grandmother, Maternal Grandfather, Paternal Grandfather(V18.0, Z83.3) Status:Active Family history of lung cance r: Maternal Grandmother(V16.1, Z80.1) Status:Active Family history of metastatic neoplastic disease: Maternal Grandmother(V16.9, Z80.9) Status:Active Family history of cardiac di sorder: Paternal Grandfather(V17.49, Z82.49) Status:Active Family history of myocardial infarction: Paternal Grandfather(V17.3, Z82.49) Status:Active Family history of hypertensi on: Father(V17.49, Z82.49) Status:Active Family history of hypothyroi dism: Mother, Maternal Grandfather(V18.19, Z83.49) Status:Active H/O thyroidectomy: Mother(24 6.8, E89.0) Status:Active Blood clot in vein: Maternal Grandmother Status:Active Unknown Family Member Name Dates Details Family history of type 2 romi betes mellitus: Maternal Grandmother, Paternal Grandmother, Maternal Grandfather, Paternal Grandfather(V18.0, Z83.3) Status:Active Family history of lung cance r: Maternal Grandmother(V16.1, Z80.1) Status:Active Family history of metastatic neoplastic disease: Maternal Grandmother(V16.9, Z80.9) Status:Active Family history of cardiac di sorder: Paternal Grandfather(V17.49, Z82.49) Status:Active Family history of myocardial infarction: Paternal Grandfather(V17.3, Z82.49) Status:Active Family history of hypertensi on: Father(V17.49, Z82.49) Status:Active Family history of hypothyroi dism: Mother, Maternal Grandfather(V18.19, Z83.49) Status:Active H/O thyroidectomy: Mother(24 6.8, E89.0) Status:Active Blood clot in vein: Maternal Grandmother Status:Active Unknown Family Member Name Dates Details Family history of type 2 romi betes mellitus: Maternal Grandmother, Paternal Grandmother, Maternal Grandfather, Paternal Grandfather(V18.0, Z83.3) Status:Active Family history of lung cance r: Maternal Grandmother(V16.1, Z80.1) Status:Active Family history of metastatic neoplastic disease: Maternal Grandmother(V16.9, Z80.9) Status:Active Family history of cardiac di sorder: Paternal Grandfather(V17.49, Z82.49) Status:Active Family history of myocardial infarction: Paternal Grandfather(V17.3, Z82.49) Status:Active Family history of hypertensi on: Father(V17.49, Z82.49) Status:Active Family history of hypothyroi dism: Mother, Maternal Grandfather(V18.19, Z83.49) Status:Active H/O thyroidectomy: Mother(24 6.8, E89.0) Status:Active Blood clot in vein: Maternal Grandmother Status:Active Unknown Family Member Name Dates Details Family history of type 2 romi betes mellitus: Maternal Grandmother, Paternal Grandmother, Maternal Grandfather, Paternal Grandfather(V18.0, Z83.3) Status:Active Family history of lung cance r: Maternal Grandmother(V16.1, Z80.1) Status:Active Family history of metastatic neoplastic disease: Maternal Grandmother(V16.9, Z80.9) Status:Active Family history of cardiac di sorder: Paternal Grandfather(V17.49, Z82.49) Status:Active Family history of myocardial infarction: Paternal Grandfather(V17.3, Z82.49) Status:Active Family history of hypertensi on: Father(V17.49, Z82.49) Status:Active Family history of hypothyroi dism: Mother, Maternal Grandfather(V18.19, Z83.49) Status:Active H/O thyroidectomy: Mother(24 6.8, E89.0) Status:Active Blood clot in vein: Maternal Grandmother Status:Active Unknown Family Member Name Dates Details Family history of type 2 romi betes mellitus: Maternal Grandmother, Paternal Grandmother, Maternal Grandfather, Paternal Grandfather(V18.0, Z83.3) Status:Active Family history of lung cance r: Maternal Grandmother(V16.1, Z80.1) Status:Active Family history of metastatic neoplastic disease: Maternal Grandmother(V16.9, Z80.9) Status:Active Family history of cardiac di sorder: Paternal Grandfather(V17.49, Z82.49) Status:Active Family history of myocardial infarction: Paternal Grandfather(V17.3, Z82.49) Status:Active Family history of hypertensi on: Father(V17.49, Z82.49) Status:Active Family history of hypothyroi dism: Mother, Maternal Grandfather(V18.19, Z83.49) Status:Active H/O thyroidectomy: Mother(24 6.8, E89.0) Status:Active Blood clot in vein: Maternal Grandmother Status:Active Unknown Family Member Name Dates Details Family history of type 2 romi betes mellitus: Maternal Grandmother, Paternal Grandmother, Maternal Grandfather, Paternal Grandfather(V18.0, Z83.3) Status:Active Family history of lung cance r: Maternal Grandmother(V16.1, Z80.1) Status:Active Family history of metastatic neoplastic disease: Maternal Grandmother(V16.9, Z80.9) Status:Active Family history of cardiac di sorder: Paternal Grandfather(V17.49, Z82.49) Status:Active Family history of myocardial infarction: Paternal Grandfather(V17.3, Z82.49) Status:Active Family history of hypertensi on: Father(V17.49, Z82.49) Status:Active Family history of hypothyroi dism: Mother, Maternal Grandfather(V18.19, Z83.49) Status:Active H/O thyroidectomy: Mother(24 6.8, E89.0) Status:Active Blood clot in vein: Maternal Grandmother Status:Active Unknown Family Member Name Dates Details Family history of type 2 romi betes mellitus: Maternal Grandmother, Paternal Grandmother, Maternal Grandfather, Paternal Grandfather(V18.0, Z83.3) Status:Active Family history of lung cance r: Maternal Grandmother(V16.1, Z80.1) Status:Active Family history of metastatic neoplastic disease: Maternal Grandmother(V16.9, Z80.9) Status:Active Family history of cardiac di sorder: Paternal Grandfather(V17.49, Z82.49) Status:Active Family history of myocardial infarction: Paternal Grandfather(V17.3, Z82.49) Status:Active Family history of hypertensi on: Father(V17.49, Z82.49) Status:Active Family history of hypothyroi dism: Mother, Maternal Grandfather(V18.19, Z83.49) Status:Active H/O thyroidectomy: Mother(24 6.8, E89.0) Status:Active Blood clot in vein: Maternal Grandmother Status:Active Unknown Family Member Name Dates Details Family history of type 2 romi betes mellitus: Maternal Grandmother, Paternal Grandmother, Maternal Grandfather, Paternal Grandfather(V18.0, Z83.3) Status:Active Family history of lung cance r: Maternal Grandmother(V16.1, Z80.1) Status:Active Family history of metastatic neoplastic disease: Maternal Grandmother(V16.9, Z80.9) Status:Active Family history of cardiac di sorder: Paternal Grandfather(V17.49, Z82.49) Status:Active Family history of myocardial infarction: Paternal Grandfather(V17.3, Z82.49) Status:Active Family history of hypertensi on: Father(V17.49, Z82.49) Status:Active Family history of hypothyroi dism: Mother, Maternal Grandfather(V18.19, Z83.49) Status:Active H/O thyroidectomy: Mother(24 6.8, E89.0) Status:Active Blood clot in vein: Maternal Grandmother Status:Active Unknown Family Member Name Dates Details Family history of type 2 romi betes mellitus: Maternal Grandmother, Paternal Grandmother, Maternal Grandfather, Paternal Grandfather(V18.0, Z83.3) Status:Active Family history of lung cance r: Maternal Grandmother(V16.1, Z80.1) Status:Active Family history of metastatic neoplastic disease: Maternal Grandmother(V16.9, Z80.9) Status:Active Family history of cardiac di sorder: Paternal Grandfather(V17.49, Z82.49) Status:Active Family history of myocardial infarction: Paternal Grandfather(V17.3, Z82.49) Status:Active Family history of hypertensi on: Father(V17.49, Z82.49) Status:Active Family history of hypothyroi dism: Mother, Maternal Grandfather(V18.19, Z83.49) Status:Active H/O thyroidectomy: Mother(24 6.8, E89.0) Status:Active Blood clot in vein: Maternal Grandmother Status:Active Unknown Family Member Name Dates Details Family history of type 2 romi betes mellitus: Maternal Grandmother, Paternal Grandmother, Maternal Grandfather, Paternal Grandfather(V18.0, Z83.3) Status:Active Family history of lung cance r: Maternal Grandmother(V16.1, Z80.1) Status:Active Family history of metastatic neoplastic disease: Maternal Grandmother(V16.9, Z80.9) Status:Active Family history of cardiac di sorder: Paternal Grandfather(V17.49, Z82.49) Status:Active Family history of myocardial infarction: Paternal Grandfather(V17.3, Z82.49) Status:Active Family history of hypertensi on: Father(V17.49, Z82.49) Status:Active Family history of hypothyroi dism: Mother, Maternal Grandfather(V18.19, Z83.49) Status:Active H/O thyroidectomy: Mother(24 6.8, E89.0) Status:Active Blood clot in vein: Maternal Grandmother Status:Active Advance Directives No Advanced Directives Records FoundDocuments on File Type Date Recorded Patient Foundation Assistant Expl anation Advance Directives and Living Will Documents on File Type Date Recorded Patient Foundation Assistant Expl anation Advance Directives and Living Will Documents on File Type Date Recorded Patient Foundation Assistant Expl anation Advance Directives and Livin g Will 10/31/2020 2:28 PM Instructions Name Dates Details Instructions not documented History of Present Illness * Chinyere Morrison, WIRE SPINNER - 04/30/2018 6:43 PM EST PATIENT NAME: Nevaeh Morgan [facility] [address] [facility] [id number] : 1995 DATE OF VISIT: 04/30/2018 #: [id number] PROVIDER: Chinyere Morrison CNP Chief Complaint Patient presents with Cough x 4 days, left ear pain x today SUBJECTIVE 22 y.o. female presents Cough (x 4 days, left ear pain x today) Left ear pain after blowing nose, head and chest congestion x 4 days. Nonproductive cough, interfering with sleep. URI This is a new problem. The current episode started in the past 7 days. The problem has been gradually worsening. Maximum temperature: low grade not documented. Associated symptoms include congestion,coughing (mostly dry), ear pain (left), headaches (everywhere), rhinorrhea, sinus pain, sneezing and a sore throat (irritation). Pertinent negatives include no abdominal pain, diarrhea, nausea, swollen glands, vomiting or wheezing. Treatments tried: dayquil, nyquil, tylenol. The treatment provided moderate relief. MEDICAL ISSUES History reviewed. No pertinent past medical history. There is no problem list on file for this patient. SOCIAL HISTORY Social History Socioeconomic History Marital status: Single Spouse name: Not on file Number of children: Not on file Years of education: Not on file Highest education level: Not on file Social Needs Financial resource strain: Not on file Food insecurity - worry: Not on file Food insecurity - inability: Not on file Transportation needs - medical: Not on file Transportation needs - non-medical: Not on file Occupational History Not on file Tobacco Use Smoking status: Former Smoker Smokeless tobacco: Never Used Tobacco comment: here and there Substance and Sexual Activity Alcohol use: Yes Comment: rarely Drug use: Never Sexual activity: Not on file Other Topics Concern Not on file Social History Narrative Not on file FAMILY HISTORY History reviewed. No pertinent family history. REVIEW OF SYSTEMS Review of Systems HENT: Positive for congestion, ear pain (left), rhinorrhea, sinus pressure, sinus pain, sneezing and sore throat (irritation). Negative for trouble swallowing. Eyes: Negative for discharge and itching. Respiratory: Positive for cough (mostly dry). Negative for shortness of breath and wheezing. Gastrointestinal: Negative for abdominal pain, diarrhea, nausea and vomiting. Neurological: Positive for headaches (everywhere). MEDICATIONS PRIOR TO VISIT Current Outpatient Medications on File Prior to Visit Medication Sig Dispense Refill acetaminophen (TYLENOL) 325 MG tablet Take 650 mg by mouth every 6 (six) hours as needed for pain . DM/PE/acetaminophen/doxylamine (VICKS DAYQUIL-NYQUIL ORAL) Take by mouth . No current facility-administered medications on file prior to visit. ALLERGIES/INTOLERANCES Allergies Allergen Reactions No Known Allergies OBJECTIVE Vitals: 04/30/18 1757 BP: 118/83 Temp: 99.3 F (37.4 C) Pulse: (!) 104 Resp: 18 SpO2: 98% Body mass index is 34.75 kg/m . 86.2 kg (190 lb) 5' 2 No LMP recorded. Patient is not currently having periods (Reason: IUD). The patient was not asked if she was . Physical Exam Constitutional: She is oriented to person, place, and time. She appears well- developed and well-nourished. HENT: Left Ear: Tympanic membrane normal. Nose: Mucosal edema and rhinorrhea present. Right sinus exhibits frontal sinus tenderness. Right sinus exhibits no maxillary sinus tenderness. Left sinus exhibits no maxillary sinus tenderness and nofrontal sinus tenderness. Mouth/Throat: Oropharynx is clear and moist and mucous membranes are normal. No posterior oropharyngeal edema or posterior oropharyngeal erythema. Right ear canal occluded with cerumen, unable to visualize right tm. Left ear canal 80% occluded, part of tm looks + erythema. Eyes: Conjunctivae are normal. Cardiovascular: Normal rate and regular rhythm. Pulmonary/Chest: Effort normal and breath sounds normal. No accessory muscle usage. No respiratory distress. Frequent Cough Lymphadenopathy: She has no cervical adenopathy. Neurological: She is alert and oriented to person, place, and time. Skin: Skin is warm and dry. Psychiatric: She has a normal mood and affect. Nursing note and vitals reviewed. PROCEDURE Procedures Results Recent Results (from the past 168 hour(s)) POC Influenza A Collection Time: 04/30/18 6:59 PM Result Value Ref Range Rapid Influenza A Ag Positive (A) Negative POC Influenza B Collection Time: 04/30/18 6:59 PM Result Value Ref Range Rapid Influenza B Ag Negative Negative ASSESSMENT/PLAN (expressed as patient instructions): SNOMED CT(R) 1. Influenza A INFLUENZA DUE TO INFLUENZA A VIRUS oseltamivir (TAMIFLU) 75 MG capsule 2. Flu-like symptoms INFLUENZA-LIKE SYMPTOMS benzonatate (TESSALON PERLES) 100 MG capsule POC Influenza A POC Influenza B 3. Acute left otitis media ACUTE LEFT OTITIS MEDIA amoxicillin-clavulanate (AUGMENTIN) 875-125 mg per tablet 4. Frontal sinusitis, unspecified chronicity FRONTAL SINUSITIS amoxicillin- clavulanate (AUGMENTIN) 875-125 mg per tablet cetirizine-pseudoePHEDrine (ZyrTEC-D) 5-120 mg per tablet guaiFENesin (MUCINEX) 600 mg 12 hr tablet fluticasone (FLONASE) 50 mcg/actuation nasal spray No follow-ups on file. ADDITIONAL CLINICAL COMMENTS ORDERS PLACED THIS VISIT Orders Placed This Encounter Procedures POC Influenza A POC Influenza B MEDICATION LIST AT END OF VISIT Current Outpatient Medications Medication Sig Dispense Refill acetaminophen (TYLENOL) 325 MG tablet Take 650 mg by mouth every 6 (six) hours as needed for pain . DM/PE/acetaminophen/doxylamine (VICKS DAYQUIL-NYQUIL ORAL) Take by mouth . amoxicillin-clavulanate (AUGMENTIN) 875-125 mg per tablet Take 1 (one) tablet by mouth 2 (two) times a day for 10 days . 20 tablet 0 benzonatate (TESSALON PERLES) 100 MG capsule Take 1 to 2 tabs po tid prn cough . 30 capsule 0 cetirizine-pseudoePHEDrine (ZyrTEC-D) 5-120 mg per tablet Take 1 (one) tablet by mouth 2 (two) times a day As needed for allergy symptoms and congestion . 60 tablet 0 fluticasone (FLONASE) 50 mcg/actuation nasal spray INSTILL 2 SPRAYS EACH NARES QD PRN FOR RELIEF OFALLERGY SYMPTOMS . 16 g 0 guaiFENesin (MUCINEX) 600 mg 12 hr tablet Use 1 to 2 tablets every 12 hours as needed, expectorant (helps to thin secretions). Drink plenty of water. . 40 tablet 0 oseltamivir (TAMIFLU) 75 MG capsule Take 1 (one) capsule (75 mg total) by mouth 2 (two) times a dayfor 5 days . 10 capsule 0 No current facility-administered medications for this visit. in this encounter* Kandi Shah CNP - 08/18/2018 9:03 AM EDT Subjective Patient ID: Nevaeh Morgan is a 22 y.o. female. Patient is here today to establish care, she is new to this provider and new to this practice. Patient is seen by Dr. Vincent for [employer], he will manage her IUD. She has had one with livebirth, little boy who is now 4. Fatigue: Patient states she has been having issues with increased fatigue over the past year. She states it is slowly getting worse. She states she is achey all the time. She states she does not get good sleep because she has a hard time staying asleep, she will wake up frequently. The first time she is awoken is typically because her son wakes her up. Talked with patient at length about making healthy food choices. Encouraged patient to cut out all processed foods and sugars and increase activity level. [place]: 12 She denies snoring but does not wake rested. She has never been told she stops breathing while sleeping. The following portions of the patient's history were reviewed and updated as appropriate: allergies, current medications, past family history, past medical history, past social history, past surgicalhistory and problem list. Past Medical History: Diagnosis Date Seasonal allergies Past Surgical History: Procedure Laterality Date INTRAUTERINE DEVICE INSERTION 06/2014 Family History Problem Relation Age of Onset Hypothyroidism Mother Tourette syndrome Brother Lung cancer Maternal Grandmother ALFA disease Maternal Grandmother Diabetes type II Maternal Grandfather Hypertension Maternal Grandfather Hypotension Paternal Grandfather Hyperlipidemia Father Social History Tobacco Use Smoking status: Former Smoker Types: Cigarettes Smokeless tobacco: Never Used Tobacco comment: here and there Substance Use Topics Alcohol use: Yes Comment: rarely Drug use: Never Patient's Medications New Prescriptions ERGOCALCIFEROL (ERGOCALCIFEROL) 50,000 UNIT CAPSULE Take 1 (one) capsule (50,000 Units total) by mouth once a week . Previous Medications ACETAMINOPHEN (TYLENOL) 325 MG TABLET Take 650 mg by mouth every 6 (six) hours as needed for pain . LEVONORGESTREL (MIRENA) 20 MCG/24 HOURS (5 YRS) 52 MG IUD 1 each by Intrauterine route once . Modified Medications No medications on file Discontinued Medications BENZONATATE (TESSALON PERLES) 100 MG CAPSULE Take 1 to 2 tabs po tid prn cough . DM/PE/ACETAMINOPHEN/DOXYLAMINE (VICKS DAYQUIL-NYQUIL ORAL) Take by mouth as needed . FLUTICASONE (FLONASE) 50 MCG/ACTUATION NASAL SPRAY INSTILL 2 SPRAYS EACH NARES QD PRN FOR RELIEF OFALLERGY SYMPTOMS . GUAIFENESIN (MUCINEX) 600 MG 12 HR TABLET Use 1 to 2 tablets every 12 hours as needed, expectorant (helps to thin secretions). Drink plenty of water. . Allergies Allergen Reactions No Known Allergies Review of Systems Review of Systems Constitutional: Positive for fatigue. Negative for activity change, appetite change and unexpected weight change. HENT: Positive for congestion, sinus pressure and sneezing. Negative for hearing loss, postnasal drip, rhinorrhea and sinus pain. Eyes: Negative for photophobia and visual disturbance. Respiratory: Negative for cough, chest tightness, shortness of breath and wheezing. Cardiovascular: Negative for chest pain and palpitations. Gastrointestinal: Positive for constipation. Negative for diarrhea, nausea and vomiting. Endocrine: Negative for cold intolerance and heat intolerance. Genitourinary: Negative for dysuria, frequency and urgency. Musculoskeletal: Negative for arthralgias, back pain and myalgias. Skin: Negative. Allergic/Immunologic: Positive for environmental allergies. Neurological: Positive for headaches. Negative for dizziness and light-headedness. Hematological: Negative. Psychiatric/Behavioral: Positive for sleep disturbance. Negative for dysphoric mood. The patient isnervous/anxious. Vitals: 08/18/18 0843 BP: 113/78 Pulse: 93 Temp: 98.4 F (36.9 C) TempSrc: Oral SpO2: 98% Weight: 107.7 kg (237 lb 6 oz) Height: 5' 3 Body mass index is 42.05 kg/m . Physical Exam Physical Exam Constitutional: She is oriented to person, place, and time. She appears well- developed and well-nourished. HENT: Right Ear: External ear normal. Left Ear: External ear normal. Nose: Nose normal. Mouth/Throat: Oropharynx is clear and moist and mucous membranes are normal. Eyes: Conjunctivae, EOM and lids are normal. Neck: Normal range of motion and full passive range of motion without pain. No JVD present. Cardiovascular: Normal rate, regular rhythm and normal heart sounds. No murmur heard. Pulmonary/Chest: Effort normal and breath sounds normal. Musculoskeletal: Normal range of motion. Normal gait Neurological: She is alert and oriented to person, place, and time. GCS eye subscore is 4. GCS verbal subscore is 5. GCS motor subscore is 6. Skin: Skin is warm and dry. Psychiatric: She has a normal mood and affect. Her speech is normal and behavior is normal. Assessment/Plan Problem List Items Addressed This Visit Other Fatigue I am going to do some routine labs to rule out thyroid, anemias, vitamin D deficiency, prediabetes or insulin resistance, and electrolytes. If these all come back normal we may look further into a sleep study. I also recommend eating healthy food and trying to be more active. Relevant Orders CBC and Differential (Completed) Comprehensive Metabolic Panel (Completed) TSH with Reflex Free T4 (Completed) Lipid Panel (Completed) Vitamin D, Total, 25-OH (Completed) Insulin, Total (Completed) BMI 40.0-44.9, adult (HCC) Eat meat, vegetables, nuts and seeds, some fruit, very little starch and absolutely no sugar. If you can grow it or kill it, then that's what you should be eating..... Chicken, turkey, fish pork, beef, ALL vegetables and fruit. If it is processed or you can not pronounce the ingredients, do not eat it! Shop the outside perimeter of the grocery store. Listen to your body, if you are hungry all the time you may need to increase your intake of healthyveggies and small healthy snacks. Eat whole, healthy foods and you won't need to count calories. Increase your activity level; the more you move your body the healthier you will be and the better you will feel! Diet and Exercise is not a fad, it really works! Screening for heart disease I would like you to obtain some fasting blood work. This means that you can not have anything to eat or drink for about 8-10 hours before your blood is drawn. The only thing you are allowed to have before your labs is a glass of water or a cup of BLACK coffee. Thank you. The lab is open here at the office M-F 730am-4pm, you do not need an appointment, just walk in. Relevant Orders TSH with Reflex Free T4 (Completed) Lipid Panel (Completed) Insulin, Total (Completed) No data recorded Goals Blood Pressure < 130/80 High blood pressure makes your heart work too hard. It can cause heart attack, stroke and kidney disease. HDL-C > 50 HEMOGLOBIN A1C < 7.0 Blood sugar levels outside the normal range may be an indicator of diabetes. LDL CALC < 100 LDL or bad cholesterol can build up and clog your blood vessels. It can cause heart attack or stroke. Weight (lb) < 97.1 kg (214 lb) Losing 10% of your weight can make a significant improvement on your current health issues. If any referrals were placed at today's visit the patient was instructed to call the office if theyhavn't heard anything about the referral within 2 weeks of today's visit. For any new medications prescribed today, patient was educated about indications for the medication, how to take the medication and potential side effects of the medications. documented in this encounter* Asha Morocho CNP - 02/01/2019 5:56 PM EST PATIENT NAME: Nevaeh Morgan [facility] [address] [place] [id number] : 1995 DATE OF VISIT: 02/01/2019 #: [id number] PROVIDER: Asha Morocho CNP Chief Complaint Patient presents with Sore Throat x days SUBJECTIVE 23 y.o. female presents Sore Throat (x days) Sore throat onset last night. Client has had a cough since last Friday. Denies nasal congestion and post-nasal drainage. Son also ill with cough for 3 weeks. Sore Throat This is a new problem. The current episode started yesterday. The problem has been unchanged. Neither side of throat is experiencing more pain than the other. There has been no fever. The pain is at a severity of 5/10 (8 of 10 upon awakening). The pain is mild. Associated symptoms include coughing,a hoarse voice, a plugged ear sensation, neck pain, swollen glands and trouble swallowing. Pertinent negatives include no congestion, diarrhea, ear discharge, ear pain, headaches, shortness of breathor vomiting. She has had no exposure to strep. Treatments tried: Dayquil and Nyquil. The treatment provided mild relief. MEDICAL ISSUES Past Medical History: Diagnosis Date Seasonal allergies Patient Active Problem List Diagnosis Fatigue BMI 40.0-44.9, adult ([facility]) Screening for heart disease Vitamin D deficiency Low HDL (under 40) Itchy eyes SOCIAL HISTORY Social History Socioeconomic History Marital status: Single Spouse name: Not on file Number of children: Not on file Years of education: Not on file Highest education level: Not on file Occupational History Not on file Social Needs Financial resource strain: Not hard at all Food insecurity Worry: Never true Inability: Never true Transportation needs Medical: No Non-medical: No Tobacco Use Smoking status: Former Smoker Types: Cigarettes Smokeless tobacco: Never Used Tobacco comment: here and there Substance and Sexual Activity Alcohol use: Yes Comment: rarely Drug use: Never Sexual activity: Yes Partners: Male control/protection: I.U.D. Lifestyle Physical activity Days per week: 2 days Minutes per session: 30 min Stress: Rather much Relationships Social connections Talks on phone: More than three times a week Gets together: Twice a week Attends shinto service: Never Active member of club or organization: No Attends meetings of clubs or organizations: Never Relationship status: Never Other Topics Concern Not on file Social History Narrative Not on file FAMILY HISTORY Family History Problem Relation Age of Onset Hypothyroidism Mother Tourette syndrome Brother Lung cancer Maternal Grandmother ALFA disease Maternal Grandmother Diabetes type II Maternal Grandfather Hypertension Maternal Grandfather Hypotension Paternal Grandfather Hyperlipidemia Father REVIEW OF SYSTEMS Review of Systems Constitutional: Positive for activity change, appetite change and fatigue. Negative for chills, diaphoresis and fever. HENT: Positive for hoarse voice, sore throat and trouble swallowing. Negative for congestion, ear discharge, ear pain, sinus pressure and sinus pain. Respiratory: Positive for cough. Negative for chest tightness, shortness of breath and wheezing. Cardiovascular: Negative for chest pain. Gastrointestinal: Negative for diarrhea, nausea and vomiting. Genitourinary: Normal urination. Musculoskeletal: Positive for neck pain. Negative for arthralgias and myalgias. Skin: Negative for rash. Neurological: Negative for headaches. MEDICATIONS PRIOR TO VISIT Current Outpatient Medications on File Prior to Visit Medication Sig Dispense Refill acetaminophen (TYLENOL) 325 MG tablet Take 650 mg by mouth every 6 (six) hours as needed for pain . ergocalciferol (ERGOCALCIFEROL) 50,000 unit capsule Take 1 (one) capsule (50,000 Units total) by mouth once a week . 13 capsule 1 levonorgestrel (MIRENA) 20 mcg/24 hours (5 yrs) 52 mg IUD 1 each by Intrauterine route once . No current facility-administered medications on file prior to visit. ALLERGIES/INTOLERANCES No Known Allergies OBJECTIVE BP 104/76 (BP Location: Left arm, Patient Position: Sitting) Pulse 89 Temp 98.6 F (37 C) (Oral) Resp 14 Ht 5' 3 Wt 81.6 kg (180 lb) SpO2 97% BMI 31.89 kg/m Physical Exam Constitutional: She is oriented to person, place, and time. She appears well- developed and well-nourished. HENT: Head: Normocephalic and atraumatic. Right Ear: Tympanic membrane, external ear and ear canal normal. Left Ear: Tympanic membrane, external ear and ear canal normal. Nose: Mucosal edema present. Right sinus exhibits no maxillary sinus tenderness and no frontal sinus tenderness. Left sinus exhibits no maxillary sinus tenderness and no frontal sinus tenderness. Mouth/Throat: Uvula is midline and mucous membranes are normal. Posterior oropharyngeal erythema present. No oropharyngeal exudate or posterior oropharyngeal edema. Neck: Neck supple. Cardiovascular: Normal rate, regular rhythm and normal heart sounds. Pulmonary/Chest: Effort normal and breath sounds normal. No respiratory distress. She has no wheezes. She has no rales. Lymphadenopathy: She has no cervical adenopathy. Neurological: She is alert and oriented to person, place, and time. Skin: Skin is warm and dry. Psychiatric: She has a normal mood and affect. Nursing note and vitals reviewed. PROCEDURE Procedures Results Recent Results (from the past 168 hour(s)) POC Rapid Strep A Collection Time: 02/01/19 6:16 PM Result Value Ref Range Strep A Screen Negative Negative ASSESSMENT/PLAN (expressed as patient instructions): 1. Sore throat POC Rapid Strep A 2. Upper respiratory tract infection, unspecified type doxycycline hyclate (VIBRAMYCIN) 100 MG capsule benzonatate (Tessalon Perles) 100 MG capsule No follow-ups on file. ADDITIONAL CLINICAL COMMENTS RST negative. Provided ATB to hold for persistent or worsening of cough with purulent sputum, fever. Will discuss flu vaccination with PCP next visit. ORDERS PLACED THIS VISIT Orders Placed This Encounter Procedures POC Rapid Strep A MEDICATION LIST AT END OF VISIT Current Outpatient Medications Medication Sig Dispense Refill acetaminophen (TYLENOL) 325 MG tablet Take 650 mg by mouth every 6 (six) hours as needed for pain . ergocalciferol (ERGOCALCIFEROL) 50,000 unit capsule Take 1 (one) capsule (50,000 Units total) by mouth once a week . 13 capsule 1 levonorgestrel (MIRENA) 20 mcg/24 hours (5 yrs) 52 mg IUD 1 each by Intrauterine route once . benzonatate (Tessalon Perles) 100 MG capsule Take one or two capsules every 8 hours as needed for cough. Do not chew. . 60 capsule 1 doxycycline hyclate (VIBRAMYCIN) 100 MG capsule Take 1 (one) capsule (100 mg total) by mouth 2 (two) times a day for 7 days . 14 capsule 0 No current facility-administered medications for this visit. documented in this encounter* Spring, Kandi Shin CNP - 02/18/2019 4:49 PM EST Subjective Patient ID: Nevaeh Morgan is a 23 y.o. female. Patient is here today for her routine interval 6 month visit. She denies any concerns or questions other than her weight that is creeping up. Weight gain: Patient was seen in September 2018 here in the office and her weight was 238#, she is now up to 248# and states this is likely from increased stress at work. She states she does not eat full meals, she tends to snack all day. Talked about tracking food and using [employer]. Talked with patient at length about making healthy food choices. Encouraged patient to cut out all processed foods and sugars and increase activity level. She denies any snoring or waking herself up at night catching her breath. She is going to ask her SO if this is an issue, may want to rule out TASHA. Vitamin D def: She states she has been taking her Vitamin D supplement weekly for the past 6 months. Noted that level is still low, sent in another 6 month prescription. Component Latest Ref Rng & Units 08/19/2018 02/12/2019 Vit D, 25-Hydroxy 30 - 100 ng/mL 13 (L) 31 The following were reviewed and updated as appropriate for today's visit: allergies, current medications, past family history, past medical history, past social history, past surgical history and problem list. Patient's Medications New Prescriptions No medications on file Previous Medications ACETAMINOPHEN (TYLENOL) 325 MG TABLET Take 650 mg by mouth every 6 (six) hours as needed for pain . BENZONATATE (TESSALON PERLES) 100 MG CAPSULE Take one or two capsules every 8 hours as needed for cough. Do not chew. . ERGOCALCIFEROL (ERGOCALCIFEROL) 50,000 UNIT CAPSULE Take 1 (one) capsule (50,000 Units total) by mouth once a week . FLU VACC [id number] 6MOS UP,PF, SDV (FLUZONE QUAD) INJECTION Sign this order in conjunction with theimmunization order to satisfy [place] Board of Pharmacy Positive ID requirements for immunization orders. . LEVONORGESTREL (MIRENA) 20 MCG/24 HOURS (5 YRS) 52 MG IUD 1 each by Intrauterine route once . Modified Medications No medications on file Discontinued Medications No medications on file Review of Systems Review of Systems Constitutional: Negative for activity change and fatigue. HENT: Negative for hearing loss. Eyes: Negative for visual disturbance. Respiratory: Negative for cough, chest tightness and shortness of breath. Cardiovascular: Negative for chest pain and palpitations. Musculoskeletal: Negative for gait problem. Skin: Negative. Neurological: Negative for dizziness, weakness, light-headedness and headaches. Psychiatric/Behavioral: Negative for agitation. Vitals: 02/18/19 1616 BP: 111/81 BP Location: Right arm Patient Position: Sitting BP Cuff Size: Adult Pulse: 95 Resp: 18 Temp: 98.4 F (36.9 C) TempSrc: Oral SpO2: 98% Weight: 112.5 kg (248 lb) Height: 5' 3 Body mass index is 43.93 kg/m . Physical Exam Physical Exam Constitutional: She is oriented to person, place, and time. She appears well- developed and well-nourished. HENT: Right Ear: External ear normal. Left Ear: External ear normal. Nose: Nose normal. Mouth/Throat: Oropharynx is clear and moist and mucous membranes are normal. Eyes: Conjunctivae, EOM and lids are normal. Neck: Normal range of motion. Cardiovascular: Normal rate, regular rhythm and normal heart sounds. No murmur heard. Pulmonary/Chest: Effort normal and breath sounds normal. Musculoskeletal: Comments: Normal gait Neurological: She is alert and oriented to person, place, and time. GCS eye subscore is 4. GCS verbal subscore is 5. GCS motor subscore is 6. Skin: Skin is warm and dry. Psychiatric: She has a normal mood and affect. Her speech is normal and behavior is normal. No data recorded Assessment/Plan Problem List Items Addressed This Visit Other BMI 40.0-44.9, adult (HCC) Look into [employer] Eat meat, vegetables, nuts and seeds, some fruit, very little starch and absolutely no sugar. If you can grow it or kill it, then that's what you should be eating..... Chicken, turkey, fish pork, beef, ALL vegetables and fruit. If it is processed or you can not pronounce the ingredients, do not eat it! Shop the outside perimeter of the grocery store. Listen to your body, if you are hungry all the time you may need to increase your intake of healthyveggies and small healthy snacks. Eat whole, healthy foods and you won't need to count calories. Increase your activity level; the more you move your body the healthier you will be and the better you will feel! Diet and Exercise is not a fad, it really works! Vitamin D deficiency Sent in another 6 months of high dose Vitamin D. In August we will redo all of your labs so that we know what your cholesterol and insulin levels are. Other Visit Diagnoses Need for influenza vaccination - Primary Relevant Medications flu vacc [id number] 6mos up,PF, sdv (FLUZONE QUAD) injection Other Relevant Orders Influenza IIV4 6mo or >,Fluzone Quad (Completed) Preventative Goals Goals Blood Pressure < 130/80 High blood pressure makes your heart work too hard. It can cause heart attack, stroke and kidney disease. HDL-C > 50 HEMOGLOBIN A1C < 7.0 Blood sugar levels outside the normal range may be an indicator of diabetes. LDL CALC < 100 LDL or bad cholesterol can build up and clog your blood vessels. It can cause heart attack or stroke. Weight (lb) < 97.1 kg (214 lb) Losing 10% of your weight can make a significant improvement on your current health issues. For any new medications prescribed today, patient was educated about indications for the medication, how to take the medication and potential side effects of the medications. Kandi Shah CNP documented in this encounter* Kandi Shah CNP - 09/15/2018 8:33 AM EDT Subjective Patient ID: Nevaeh Morgan is a 23 y.o. female. Patient is here today to review labwork. Noted that Vitamin D level was 13 which can explain her worsening fatigue. Talked about starting the 50,000 units of Vitamin D supplement and then we will recheck labs in 6 months to see if it has improved. Talked also about current lipid panel and low HDL. Also concerned about borderline total insulin level at 20.0. Talked with patient at length about making healthy food choices. Encouraged patient to cut out all processed foods and sugars and increase activity level. She states at times she will have itchy red eyes, she states it happens a few times a week. She believes she may have some seasonal or environmental allergies, especially around dusts. 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 The following were updated as appropriate for today's visit: allergies, current medications, past family history, past medical history, past social history, past surgical history and problem list. Patient's Medications New Prescriptions No medications on file Previous Medications ACETAMINOPHEN (TYLENOL) 325 MG TABLET Take 650 mg by mouth every 6 (six) hours as needed for pain . ERGOCALCIFEROL (ERGOCALCIFEROL) 50,000 UNIT CAPSULE Take 1 (one) capsule (50,000 Units total) by mouth once a week . LEVONORGESTREL (MIRENA) 20 MCG/24 HOURS (5 YRS) 52 MG IUD 1 each by Intrauterine route once . Modified Medications No medications on file Discontinued Medications No medications on file Review of Systems Review of Systems Constitutional: Positive for fatigue. Negative for activity change. HENT: Negative for hearing loss. Eyes: Positive for redness and itching. Negative for visual disturbance. Respiratory: Negative for cough, chest tightness and shortness of breath. Cardiovascular: Negative for chest pain and palpitations. Musculoskeletal: Negative for gait problem. Skin: Negative. Psychiatric/Behavioral: Negative for agitation. Vitals: 09/15/18 0815 BP: 113/80 BP Location: Right arm Patient Position: Sitting BP Cuff Size: Adult Pulse: 94 Resp: 18 Temp: 98.7 F (37.1 C) TempSrc: Oral SpO2: 98% Weight: 108 kg (238 lb) Height: 5' 3 Body mass index is 42.16 kg/m . Physical Exam Physical Exam Constitutional: She is oriented to person, place, and time. She appears well- developed and well-nourished. HENT: Right Ear: External ear normal. Left Ear: External ear normal. Nose: Nose normal. Mouth/Throat: Oropharynx is clear and moist and mucous membranes are normal. Eyes: Conjunctivae, EOM and lids are normal. Neck: Normal range of motion. Cardiovascular: Normal rate, regular rhythm and normal heart sounds. No murmur heard. Pulmonary/Chest: Effort normal and breath sounds normal. Musculoskeletal: Normal gait Neurological: She is alert and oriented to person, place, and time. GCS eye subscore is 4. GCS verbal subscore is 5. GCS motor subscore is 6. Skin: Skin is warm and dry. Psychiatric: She has a normal mood and affect. Her speech is normal and behavior is normal. No data recorded Assessment/Plan Problem List Items Addressed This Visit Other BMI 40.0-44.9, adult (HCC) Eat meat, vegetables, nuts and seeds, some fruit, very little starch and absolutely no sugar. If you can grow it or kill it, then that's what you should be eating..... Chicken, turkey, fish pork, beef, ALL vegetables and fruit. If it is processed or you can not pronounce the ingredients, do not eat it! Shop the outside perimeter of the grocery store. Listen to your body, if you are hungry all the time you may need to increase your intake of healthyveggies and small healthy snacks. Eat whole, healthy foods and you won't need to count calories. Increase your activity level; the more you move your body the healthier you will be and the better you will feel! Diet and Exercise is not a fad, it really works! Relevant Orders Lipid Panel TSH with Reflex Free T4 Insulin, Total Vitamin D deficiency - Primary I am going to start you on a 50,000 unit of Vitamin d supplementation once a week. In 6 months we will recheck your labs and see if we need to stay on this or go to OTC supplementation. This will hopefully help with your fatigue and overall make you feel better. Relevant Orders Vitamin D, Total, 25-OH Low HDL (under 40) To decrease your overall risk of heart disease it is bet if your HDL is over 50. Make sure you are getting enough exercise and eating healthy foods. Relevant Orders Lipid Panel Itchy eyes Sounds like you are having an allergic reaction at times. Recommend getting some OTC allergy eye drops to help with symptoms. If this does not help symptoms please let me know. Goals Blood Pressure < 130/80 High blood pressure makes your heart work too hard. It can cause heart attack, stroke and kidney disease. HDL-C > 50 HEMOGLOBIN A1C < 7.0 Blood sugar levels outside the normal range may be an indicator of diabetes. LDL CALC < 100 LDL or bad cholesterol can build up and clog your blood vessels. It can cause heart attack or stroke. Weight (lb) < 97.1 kg (214 lb) Losing 10% of your weight can make a significant improvement on your current health issues. For any new medications prescribed today, patient was educated about indications for the medication, how to take the medication and potential side effects of the medications. documented in this encounter Assessments Diagnosis Influenza A- Primary Influenza with other respiratory manifestations Flu-like symptoms Acute left otitis media Frontal sinusitis, unspecified chronicity Diagnosis Fatigue, unspecified type BMI 40.0-44.9, adult ([facility]) Screening for heart disease Screening for other and unspecified cardiovascular conditions Diagnosis Sore throat Acute pharyngitis Upper respiratory tract infection, unspecified type Diagnosis Need for influenza vaccination Need for prophylactic vaccination and inoculation against influenza Vitamin D deficiency BMI 40.0-44.9, adult ([facility]) Diagnosis Vitamin D deficiency- Primary BMI 40.0-44.9, adult ([facility]) Low HDL (under 40) Itchy eyes Other ill-defined disorder of eye Reason for Referral Status Reason Specialty Diagnoses / Procedures Referred By Contact Referred To Contact Authorized Patient Preference Physical Therapy Diagnoses Right foot sprain, subsequent encounter Raquel Anderson DPM [address] [place] [address] Status Reason Specialty Diagnoses / Procedures Referred By Contact Referred To Contact New Request Radiology Diagnoses Right foot sprain, subsequent encounter Right foot pain Procedures MR Foot Right With Contrast Baldwin PlaceRaquel, DPM [address] [place] [address] Specialty Diagnoses / Procedures Referred By Contac t Referred To Contact Radiology Diagnoses Right foot sprain, subsequent encounter Right foot pain Procedures MR Foot Right Without Contrast Baldwin PlaceRaquel, DPM [address] [place] [address] Referral ID Status Reason Start Date Expiration Date V isits Requested Visits Authorized [id number] New Request 10/25/2020 10/25/2021 1 1 Specialty Diagnoses / Procedures Referred By Contac t Referred To Contact Radiology Diagnoses Right foot sprain, subsequent encounter Right foot pain Procedures MR Foot Right With Contrast [place] [address], Raquel Cristina, DPM [address] [place] [address] Referral ID Status Reason Start Date Expiration Date V isits Requested Visits Authorized [id number] Authorized 10/03/2020 10/03/2021 1 1 Chief Complaint PT HAD LP 05/2021 AND HAS PAIN MID LOWER BACK WHERE LP WAS DONE AND PAINFUL TO SACRAL AREA. PAINFUL TO SIT,STAND,WALK,AND BEND. PT FEELS LIKE HER LEGS MAY GIVE OUT WHEN WALKING AT TIMES. PT STATES THEPAIN HAS GOTTEN WORSE OVER THE LAST 2 WEEKS. PAIN SCALE 7-8 TODAY2 WK F/U XRAY [facility] DONE; C/O LBP REMAINS3 WEEK F/U (LOWER BACK PAIN). PT HAS NOT TAKEN FLEXERIL. Additional Source Comments INFORMATION SOURCE (unrecogn ized section and content) DATE CREATED AUTHOR AUTHOR'S ORGANIZ ATION 09/03/2017 [facility] DATE CREATED AUTHOR AUTHOR'S ORGANIZ ATION 10/27/2019 [facility] DATE CREATED AUTHOR AUTHOR'S ORGANIZ ATION 11/01/2020 [facility] DATE CREATED AUTHOR AUTHOR'S ORGANIZ ATION 10/16/2021 [employer] DATE CREATED AUTHOR AUTHOR'S ORGANIZ ATION 09/25/2022 [facility] CREATED AUTHOR AUTHOR'S ORGANIZ ATION 01/27/2023 [facility] DATE CREATED AUTHOR AUTHOR'S ORGANIZ ATION 02/21/2023 [facility] Reason for Visit (unrecogniz ed section and content) Reason Comments Establish Care Fatigue always fatigued , w ould like thyroid checked Reason Comments Sore Throat x days Reason Comments Follow-up review labs Reason Comments Follow-up review current lab r esults and medications Reason Comments Ankle Pain Right ankle injury. Fell and rolled right ankle Reason Comments Poison Muna Poison muna to abdome n, bruising Reason Comments Foot Pain Follow up. Still yoel nfull. Doing small stretches. Having swelling and tingling. Reason Comments Physical Therapy Status Reason Specialty Diagnoses / Procedures Referred By Contact Referred To Contact Authorized Rehabilitation Diagnoses Right foot sprain, subsequent encounter Raquel Anderson, DPM [address] [place] [address] [facility] [address] [place] [address] Reason Comments Foot Pain FU right foot sprain and Pt Reason Comments Foot Pain FU right foot sprain and Pt Reason Comments Follow-up Right foot sprain. s tates it is still a little painful, but getting better. Foot Problem States she has a lum p on the bottom of her left foot she is concerned about. Reason Comments Sore Throat Sore throat for a co uple days, son had strep in November, fiance just got over it Reason Comments Rash Under right arm x 2. 5 weeks Reason Comments Facial Swelling Fell Friday night, around 12:30am, swelling to eyelids, hard to keep eyes open Reason Comments Ankle Pain Right ankle pain, tw isted it this afternoon. Has fractured it in the past. Reason Comments Fracture FU form urgent care. Right ankle pain x 1 week. Foot was asleep from legs dangling and rolled ankle when she went to walk. [place] a loud pop. Patient states it still starting to feel better and has been walking without boot some. Reason Comments Ankle Injury Three week follow up left ankle sprain. Assessment & Plan Note - Kandi Shah CNP - 08/18/2018 9:12 AM EDTAssessment & Plan Note - Kandi Shah CNP - 08/18/2018 9:10 AM EDT Miscellaneous Notes (unrecog nized section and content) Associated Problem(s): Screening for heart disease I would like you to obtain some fasting blood work. This means that you can not have anything to eat or drink for about 8-10 hours before your blood is drawn. The only thing you are allowed to have before your labs is a glass of water or a cup of BLACK coffee. Thank you. The lab is open here at the office M-F 730am-4pm, you do not need an appointment, just walk in. Associated Problem(s): Fatigue I am going to do some routine labs to rule out thyroid, anemias, vitamin D deficiency, prediabetes or insulin resistance, and electrolytes. If these all come back normal we may look further into a sleep study. I also recommend eating healthy food and trying to be more active. Associated Problem(s): BMI 40.0-44.9, adult (HCC) Eat meat, vegetables, nuts and seeds, some fruit, very little starch and absolutely no sugar. If you can grow it or kill it, then that's what you should be eating..... Chicken, turkey, fish pork, beef, ALL vegetables and fruit. If it is processed or you can not pronounce the ingredients, do not eat it! Shop the outside perimeter of the grocery store. Listen to your body, if you are hungry all the time you may need to increase your intake of healthy veggies and small healthy snacks. Eat whole, healthy foods and you won't need to count calories. Increase your activity level; the more you move your body the healthier you will be and the better you will feel! Diet and Exercise is not a fad, it really works! documented in this encounter Associated Problem(s): BMI 40.0-44.9, adult (HCC) Look into [employer] Eat meat, vegetables, nuts and seeds, some fruit, very little starch and absolutely no sugar. If you can grow it or kill it, then that's what you should be eating..... Chicken, turkey, fish pork, beef, ALL vegetables and fruit. If it is processed or you can not pronounce the ingredients, do not eat it! Shop the outside perimeter of the grocery store. Listen to your body, if you are hungry all the time you may need to increase your intake of healthy veggies and small healthy snacks. Eat whole, healthy foods and you won't need to count calories. Increase your activity level; the more you move your body the healthier you will be and the better you will feel! Diet and Exercise is not a fad, it really works! Associated Problem(s): Vitamin D deficiency Sent in another 6 months of high dose Vitamin D. In August we will redo all of your labs so that we know what your cholesterol and insulin levels are. documented in this encounter Associated Problem(s): Itchy eyes Sounds like you are having an allergic reaction at times. Recommend getting some OTC allergy eye drops to help with symptoms. If this does not help symptoms please let me know. Associated Problem(s): Low HDL (under 40) To decrease your overall risk of heart disease it is bet if your HDL is over 50. Make sure you are getting enough exercise and eating healthy foods. Associated Problem(s): BMI 40.0-44.9, adult (HCC) Eat meat, vegetables, nuts and seeds, some fruit, very little starch and absolutely no sugar. If you can grow it or kill it, then that's what you should be eating..... Chicken, turkey, fish pork, beef, ALL vegetables and fruit. If it is processed or you can not pronounce the ingredients, do not eat it! Shop the outside perimeter of the grocery store. Listen to your body, if you are hungry all the time you may need to increase your intake of healthy veggies and small healthy snacks. Eat whole, healthy foods and you won't need to count calories. Increase your activity level; the more you move your body the healthier you will be and the better you will feel! Diet and Exercise is not a fad, it really works! Associated Problem(s): Vitamin D deficiency I am going to start you on a 50,000 unit of Vitamin d supplementation once a week. In 6 months we will recheck your labs and see if we need to stay on this or go to OTC supplementation. This will hopefully help with your fatigue and overall make you feel better. 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 Relationship Specialty Start Date End Date Elzbieta Deal MD [address] [place] [address] PCP - General Internal Medicine 09/04/20 Engine Pilot Relationship Specialty Start Date End Date Elzbieta Deal MD [address] [place] [id number] PCP - General Internal Medicine 09/04/20 Engine Pilot Relationship Specialty Start Date End Date Elzbieta Deal MD [address] [place] [address] PCP - General Internal Medicine 09/04/20 Engine Pilot Relationship Specialty Start Date End Date Elzbieta Deal MD [address] [place] [address] PCP - General Internal Medicine 09/04/20 Engine Pilot Relationship Specialty Start Date End Date Elzbieta Deal MD [address] [place] [id number] PCP - General Internal Medicine 09/04/20 FOR RECORDS PERTAINING TO PATIENTS WHO ARE OR HAVE BEEN ENROLLED IN A CHEMICAL DEPENDENCY/SUBSTANCEABUSE PROGRAM, SOME INFORMATION MAY BE OMITTED. This clinical summary was aggregated from multiple sources. Caution should be exercised in using it in the provision of clinical care. This summary normalizes information from multiple sources, and as a consequence, information in this document may materially change the coding, format and clinical context of patient data. In addition, data may be omitted in some cases. CLINICAL DECISIONS SHOULD BE BASED ON THE PRIMARY CLINICAL RECORDS. [facility] [employer] [facility]. provides no warranty or guarantee of the accuracy or completeness of information in this document.
[2023-03-28 22:55] LABS: HPV Reflexed? NOT INDICATED
== END | disposition home or self-care (01) ==
LOC: LABSPEC 10:56
PROVIDERS: PCP Internal Medicine; Referring Provider Nurse Practitioner Women's Health; Visit Provider Nurse Practitioner Women's Health
DX: Z12.4 Encounter for screening for malignant neoplasm of cervix (principal)
CPT/HCPCS: 88175; G0145

== ENCOUNTER → 2023-12-19 | Outpatient (CLI) | payer MEDICAID, SELFPAY ==
[2023-12-19 14:27] LABS: Absolute Lymphocyte Count 1.34 X10^3/uL (0.83-4.51); Absolute Neutrophil Count 6.7 X10^3/uL (2.0-7.7); Basophil# 0.03 X10^3/uL; Basophil% 0.3 % (0-1); Eosinophil# 0.06 X10^3/uL; Eosinophils% 0.7 % (0-5); Hematocrit 38.6 % (37-47); Hemoglobin 12.9 g/dL (12.0-15.0); Lymphocyte # 1.34 X10^3/ul (0.83-4.51); Lymphocyte % 15.4 % (19-41); Mean Corp Hgb Conc 33.4 g/dL (32-36); Mean Corpuscular Hgb 27.3 pg (27.0-32.0); Mean Corpuscular Volume 81.8 fL (81-99); Mean Platelet Vol. 11.4 fl (6.2-12.0); Monocyte# 0.54 X10^3/uL; Monocyte% 6.2 % (0-10); NRBC Flagged by Analyzer 0 % (0-5); Neutrophil # 6.73 X10^3/uL (2.7-7.7); Neutrophil % 77.2 % (47-70); Platelet Count 193 K/mm3 (150-450); RBC Distribution Width CV 12.7 % (11.6-14.6); RBC Distribution Width SD 37.8 fl (35.1-43.9); Red Blood Count 4.72 M/mm3 (4.2-5.4); White Blood Count 8.7 K/mm3 (4.4-11.0)
[2023-12-19 15:18] LABS: HIV - WCH Non-Reactive (Nonreactive); Hepatitis B Surface Antigen Non-Reactive (Nonreactive); Hepatitis C Antibody Non-Reactive (Nonreactive); Rubella IgG Equiv (Nonreactive); Syphilis Antibodies Non-reactive
[2023-12-19 15:27] LABS: Hemoglobin A1c 5.1 % (3.8-5.6)
[2023-12-23 04:07] LABS: Chlamydia By Nucleic Acid AMP Negative (Negative); Gonococcus By Nucleic Acid AMP Negative (Negative)
== END | disposition home or self-care (01) ==
LOC: WOBLAB 13:52
PROVIDERS: PCP Internal Medicine; Referring Provider Registered Nurse; Visit Provider Registered Nurse
DX: O99.210 Obesity complicating pregnancy, unspecified trimester (principal); Z79.899 Other long term (current) drug therapy; Z3A.00 Weeks of gestation of pregnancy not specified
CPT/HCPCS: 36415; 83036; 85025; 86703; 86762; 86780; 86803; 86850; 86900; 86901; 87086; 87088; 87340; 87491; 87591

== ENCOUNTER → 2024-02-11 | Outpatient (CLI) | payer MEDICAID, SELFPAY | END | disposition home or self-care (01) | LOC: LABSPEC 15:17 | PROVIDERS: PCP Internal Medicine; Referring Provider Nurse Practitioner Women's Health; Visit Provider Nurse Practitioner Women's Health | DX: R30.0 Dysuria (principal) | CPT/HCPCS: 87077; 87086; 87088; 87186 ==

== ENCOUNTER → 2024-04-05 | Outpatient (CLI) | payer OTHER, MEDICAID, SELFPAY | END | disposition home or self-care (01) | LOC: LABSPEC 16:37 | PROVIDERS: PCP Internal Medicine; Referring Provider Nurse Practitioner Women's Health; Visit Provider Nurse Practitioner Women's Health | DX: R30.0 Dysuria (principal) | CPT/HCPCS: 87077; 87086; 87088; 87186 ==

== ENCOUNTER → 2024-05-03 | Outpatient (CLI) | payer MEDICAID, SELFPAY ==
[2024-05-03 17:15] LABS: Glucose Challenge Gest 1H 50g 117 mg/dL (70-140)
[2024-05-03 17:18] LABS: Absolute Lymphocyte Count 1.83 X10^3/uL (0.83-4.51); Absolute Neutrophil Count 9.1 X10^3/uL (2.0-7.7); Basophil# 0.03 X10^3/uL; Basophil% 0.3 % (0-1); Eosinophil# 0.07 X10^3/uL; Eosinophils% 0.6 % (0-5); Hematocrit 37.5 % (37-47); Hemoglobin 12.3 g/dL (12.0-15.0); Lymphocyte # 1.83 X10^3/ul (0.83-4.51); Lymphocyte % 15.7 % (19-41); Mean Corp Hgb Conc 32.8 g/dL (32-36); Mean Corpuscular Hgb 28.1 pg (27.0-32.0); Mean Corpuscular Volume 85.6 fL (81-99); Monocyte# 0.55 X10^3/uL; Monocyte% 4.7 % (0-10); NRBC Flagged by Analyzer 0 % (0-5); Neutrophil # 9.11 X10^3/uL (2.7-7.7); Neutrophil % 78.2 % (47-70); Platelet Count 209 K/mm3 (150-450); RBC Distribution Width CV 13.2 % (11.6-14.6); RBC Distribution Width SD 40.8 fl (35.1-43.9); Red Blood Count 4.38 M/mm3 (4.2-5.4); White Blood Count 11.7 K/mm3 (4.4-11.0)
[2024-05-03 17:52] LABS: HIV - WCH Non-Reactive (Nonreactive); Syphilis Antibodies Non-reactive
== END | disposition home or self-care (01) ==
LOC: BWCLAB 15:23
PROVIDERS: Nurse Practitioner Women's Health; PCP Internal Medicine; Referring Provider Obstetrics & Gynecology; Visit Provider Obstetrics & Gynecology
DX: O09.92 Supervision of high risk pregnancy, unspecified, second trimester (principal); Z13.1 Encounter for screening for diabetes mellitus; Z3A.00 Weeks of gestation of pregnancy not specified
CPT/HCPCS: 36415; 82950; 85025; 86703; 86780; 87086; 87088

== ENCOUNTER → 2024-06-17 | Outpatient (CLI) | payer MEDICAID, SELFPAY ==
[2024-06-17 17:45] LABS: Amphetamine Urine NEGATIVE (<1000 ng/mL); Barbiturate Urine NEGATIVE (< 200 ng/mL); Benzodiazepine Urine NEGATIVE (< 200 ng/mL); Buprenorphine Urine NEGATIVE (< 200 ng/mL); Cocaine Urine NEGATIVE (< 300 ng/mL); Fentanyl, Urine NEGATIVE; Methadone Urine NEGATIVE (< 300 ng/mL); Opiates Urine NEGATIVE (< 300 ng/mL); Oxycodone, Urine NEGATIVE (< 100 ng/mL); PCP Urine NEGATIVE (< 25 ng/mL); THC Urine NEGATIVE (< 50 ng/mL)
== END | disposition home or self-care (01) ==
LOC: LABSPEC 15:36
PROVIDERS: PCP Internal Medicine; Referring Provider Advanced Practice Midwife; Visit Provider Advanced Practice Midwife
DX: Z79.899 Other long term (current) drug therapy (principal)
CPT/HCPCS: A4216; 80307

== ENCOUNTER → 2024-06-28 | Outpatient (CLI) | payer MEDICAID, SELFPAY | END | disposition home or self-care (01) | LOC: LABSPEC 15:42 | PROVIDERS: PCP Internal Medicine; Referring Provider Advanced Practice Midwife; Visit Provider Advanced Practice Midwife | DX: O09.92 Supervision of high risk pregnancy, unspecified, second trimester (principal); Z3A.00 Weeks of gestation of pregnancy not specified | CPT/HCPCS: 87081 ==

== ENCOUNTER → 2024-06-28 | Outpatient (CLI) | payer MEDICAID, SELFPAY ==
--- NOTE | 2024-06-28 15:58 | US_ITS ---
PROCEDURE: OB LIMITED WITH BIOMETRICS 06/28/2024 REASON FOR EXAM: OBESITY IN growth. TECHNIQUE: High resolution obstetric ultrasound performed using a 2D transducer. Standard views obtained, including biometry, anatomy survey, and Doppler studies. COMPARISON: None FINDINGS Number: 1 Position: Vertex Placental Position: Anterior and not low-lying. Placental Abnormalities: No evidence of previa or accreta. DIMENSIONS: Biparietal Diameter: 8.87 cm: 35 weeks and 6 days: 55%/ Head Circumference: 31.93 cm: 36 weeks and 0 days: 20%/ Abdominal Circumference: 33.07 cm: 37 weeks and 0 days: 84%/ Femur Length: 6.67 cm: 34 weeks and 2 days: 10%/ ESTIMATED WEIGHT: 2878 g plus/-432 g ESTIMATED WEIGHT PERCENTILE (24+ weeks): 57 ESTIMATED GESTATIONAL AGE: Baseline: 36 weeks and 0 days By Ultrasound: 35 weeks and 5 days ESTIMATED DATE OF DELIVERY: Baseline: July 26, 2024 By Ultrasound: July 28, 2024 BIOPHYSICAL ASSESSMENT: Amniotic Fluid Volume: 5.8 cm Amniotic Fluid Index: 11.7 cm (8-24 cm normal range) Cardiac Motion: 147 beats per minute (average) Trunk and Limb Motion: Present. MATERNAL ANATOMY: Adnexa: Neither maternal ovary is successfully identified. US/OB Limited With Biometrics IMPRESSION: Single live intrauterine gestation with a mean gestational age of 35 weeks and 5 days. Reading Location: [place] [id number]
== END | disposition home or self-care (01) ==
PROVIDERS: PCP Internal Medicine; Referring Provider Internal Medicine; Visit Provider Obstetrics & Gynecology
DX: O99.212 Obesity complicating pregnancy, second trimester (principal); Z3A.00 Weeks of gestation of pregnancy not specified; O09.92 Supervision of high risk pregnancy, unspecified, second trimester
CPT/HCPCS: 76816; 87081

== ENCOUNTER 2024-07-19 07:35 | Inpatient (IN) | payer MEDICAID, SELFPAY ==
[2024-07-19] VITALS (45 sets, daily range): BP systolic 110–146; BP diastolic 64–86; PULSE 71–97; RESP 16; TEMP 36.1–36.8; O2SAT 96–99; BMI 41.2
[2024-07-19] MEDS: Lactated Ringers 1,000 ML 200 ML IV (08:00)
[2024-07-19 08:16] LABS: Absolute Lymphocyte Count 1.78 X10^3/uL (0.83-4.51); Absolute Neutrophil Count 8.5 X10^3/uL (2.0-7.7); Basophil# 0.03 X10^3/uL; Basophil% 0.3 % (0-1); Eosinophil# 0.07 X10^3/uL; Eosinophils% 0.6 % (0-5); Hematocrit 33.7 % (37-47); Hemoglobin 11.1 g/dL (12.0-15.0); Lymphocyte # 1.78 X10^3/ul (0.83-4.51); Lymphocyte % 15.9 % (19-41); Mean Corp Hgb Conc 32.9 g/dL (32-36); Mean Corpuscular Hgb 25.5 pg (27.0-32.0); Mean Corpuscular Volume 77.5 fL (81-99); Mean Platelet Vol. 11.1 fl (6.2-12.0); Monocyte% 6.3 % (0-10); NRBC Flagged by Analyzer 0 % (0-5); Neutrophil # 8.51 X10^3/uL (2.7-7.7); Neutrophil % 76.3 % (47-70); Platelet Count 182 K/mm3 (150-450); RBC Distribution Width CV 13.7 % (11.6-14.6); RBC Distribution Width SD 38.6 fl (35.1-43.9); Red Blood Count 4.35 M/mm3 (4.2-5.4); White Blood Count 11.2 K/mm3 (4.4-11.0)
[2024-07-19] MEDS: Oxytocin 15 Units/NS 250ml 15 UNITS/250 ML IV.SOLN 2 UNITS IV (08:20)
--- NOTE | 2024-07-19 08:22 | HP.PCM.OB_ITS ---
HPI - General General Date of Admission: 07/19/24 Date of Service: 07/19/24 HPI Narrative ANGEL SALINAS, is a 28 F 39.0 who presents to unit for IOL for obesity. Maternal Data Information BETSY Calculator Estimated Delivery Date Method Current WG Current Estimate 07/26/24 LMP (Certain) 39w 0d Final BETSY: 07/26/24 Final BETSY Source: US >20 weeks Gestational age: 39.0 PFSH PFSH Medical History Chronic headaches Seasonal allergies Home Medications ?Medication ?Instructions ?Recorded ?Last Taken ?Type PNV 178-FA 180 mcg-om3 35 mg-dha tab PO 12/11/23 Unkno wn History 25 mg-epa 5 mg-fish oil chew tablet pyridoxine (vitamin B6) 25 mg 12.5 mg PO BID 12/11/23 Unknown History tablet Allergy/AdvReac Type Severity Reaction Status Date / Time topiramate (From Topamax) Allergy Intermediate Rash Verified 07/19/24 07:34 Family History Mother Thyroid disorder Grandfather Thyroid disorder Grandmother Lung cancer Other Arthritis Blood clot in vein Cancer Diabetes High cholesterol Hypertension Tourette syndrome Surgical History No history of previous surgery Social History adopted: No household members: significant other and children number of children: 1 current occupational status: employed 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 current occupational exposures/hazards: No pets and animals: Yes pets and animals: dog(s) history of recent travel: No sexually active: Yes Smoking Status: Never smoker alcohol intake: former year quit: 2021 details: Not while substance use type: former substance user Date of last use: 1 month ago and marijuana well-balanced diet: daily or most days caffeine: Yes Type: carbonated beverages Number of servings: 1 eating out: rarely or never during the past year weight has: remained stable what type of physical activity do you participate in: walking frequency: 3-4 times per week duration: 45-60 minutes/day cornel/synagogue: None seatbelt use: always do you feel safe at home: Yes additional social history: engaged - [employer] History 2 Elective abortions Hx Para 1 Spontaneous abortions Hx # Term Pregnancies Ectopic pregnancies Hx # Pregnancies Multiple births # of living children 1 Past Pregnancies Del. Date Name GA/Weeks Outcome Route Bth Weight Infant Gen Labor Lgth Anesthesia Del Locatn Provider FOB Unknown Bib 2014 40 live - full term 6#9oz Male epidural [facility] Dr. Mis Velez Visit Details Expected Delivery Route/Plan Labor Preferences- CB/BF classes: [] labor support person: [] labor intervention preferences: [] pain management options preferred: [] cut cord/dad catch: [] : [] PP control planned: [] discussed possible routes of delivery and associated risks: [] special requests: [] Plans Covid status: [] Flu vaccine: [] Tdap vaccine: [] Rhogam: [] LARC form signed: [] Problem list reviewed and updated with the most current plan of care details and appropriate orders placed. Relevant counseling for the gestational age provided. Continue routine care and follow up unless otherwise noted in visit notes/problem list details OB Flowsheet Initial Weight: 201 lb Date -?-?-?-?-?-?-?-?-?-?-?-?- EGA Weight BP Urine Prot -?-?-?-?-?-?-?-?-?-?-?-?- Glucose FHR FuHt Pres Dilation -?-?-?-?-?-?-?-?-?-?-?-?- Effaced St Visit Note 12/19/23 -?-?-?-?-?-?-?-?-?-?-?-?- 8w 4d 201 lb 8 oz (+8 oz) 110/77 -?-?-?-?-?-?-?-?-?-?-?-?- 173 -?-?-?-?-?-?-?-?-?-?-?-?- LC- CRL 1.9 con with LMP. declines nipt hbga1c for obesity. 01/15/24 -?-?-?-?-?-?-?-?-?-?-?-?- 12w 3d 201 lb 8 oz (+8 oz) 96/67 Negative -?-?-?-?-?-?-?-?-?-?-?-?- Negative 150 -?-?-?-?-?-?-?-?-?-?-?-?- SM- no vb crampi ng 02/11/24 -?-?-?-?-?-?-?-?-?-?-?-?- 16w 2d 203 lb (+2 lb) 110/72 Negative -?-?-?-?-?-?-?-?-?-?-?-?- Negative 153 -?-?-?-?-?-?-?-?-?-?-?-?- MH-No VB. Has dy suria-UA +. Macrobid sent Culture pending 03/08/24 -?-?-?-?-?-?-?-?-?-?-?-?- 20w 0d 207 lb 6 oz (+6 lb 6 oz) 113/75 Negative -?-?-?-?-?-?-?-?-?-?-?-?- Negative 140 -?-?-?-?-?-?-?-?-?-?-?-?- JV- pt voided pr ior to obtaining a clean catch and can not wait to go again. will need JOSSE next visit. 04/05/24 -?-?-?-?-?-?-?-?-?-?-?-?- 24w 0d 214 lb 4 oz (+13 lb 4 oz) 110/82 Negative -?-?-?-?-?-?-?-?-?-?-?-?- Negative 154 -?-?-?-?-?-?-?-?-?-?-?-?- MH-No VB. Good F M. Urine culture today. Denies concerns 05/03/24 -?-?-?-?-?-?-?-?-?-?-?-?- 28w 0d 218 lb 4 oz (+17 lb 4 oz) 112/75 Negative -?-?--?-?-?-?-?-?-?-?-?-?- Negative 155 28 -?-?-?-?-?-?-?-?-?-?-?-?- KW- no vb/lof/ct x. good fm. larc today. wants to think about tdap. glucose labs today. 05/17/24 -?-?-?-?-?-?-?-?-?-?-?-?- 30w 0d 220 lb (+19 lb) 114/63 Negative -?-?-?-?-?-?-?-?-?-?-?-?- Negative 140 30 -?-?-?-?--?-?-?-?-?-?-?-?- KW- no vb/lof/ct x. good fm. Tdap today. 05/31/24 -?-?-?-?-?-?-?-?-?-?-?-?- 32w 0d 222 lb 2 oz (+21 lb 2 oz) 102/69 Negative -?-?-?-?-?-?-?-?-?-?-?-?- Negative 133 34 -?-?-?-?-?-?-?-?-?-?-?-?- JV- no lof, vagi nal bleeding, or dec fm. just feeling pressure. 06/17/24 -?-?-?-?-?-?-?-?-?-?-?-?- 34w 3d 226 lb 6 oz (+25 lb 6 oz) 106/63 Negative -?-?-?-?-?-?-?-?-?-?-?-?- Negative 135 -?-?-?-?-?-?-?-?-?-?-?-?- KW- no vb/lof/ct x. good fm. NST reactive. growth US scheduled. 06/22/24 -?-?-?-?-?-?-?-?-?-?-?-?- 35w 1d 225 lb 4 oz (+24 lb 4 oz) 117/80 Negative -?-?-?-?-?-?-?-?-?-?-?-?- Negative 130 -?-?-?-?-?-?-?-?-?-?-?-?- NST only reac tive 06/28/24 -?-?-?--?-?-?-?-?-?-?-?-?- 36w 0d 229 lb (+28 lb) 111/79 Negative -?-?-?-?-?-?-?-?-?-?-?-?- Negative 140 37 -?-?-?-?-?-?-?-?-?-?-?-?- KW- NST reactive . US today. good fm. no vb/lof/ctx. 07/05/24 -?-?-?-?-?-?-?-?-?-?-?-?- 37w 0d 229 lb 6 oz (+28 lb 6 oz) 105/72 Negative -?-?-?-?-?-?-?-?-?-?-?-?- Negative 150 38 Cephalic 1 .5 -?-?-?-?-?-?-?-?-?-?-?-?- 50 -2 JV- no lof , vaginal bleeding, or dec fm.NST reactive. wants 39 week IOL. baby should be about 7 1/2 pounds by then. Her last baby was 6 lbs and 42 weeks. 07/13/24 -?-?-?-?-?-?-?-?-?-?-?-?- 38w 1d 233 lb 6 oz (+32 lb 6 oz) 117/81 Negative -?-?-?-?-?-?-?-?-?-?-?-?- Negative 145 -?-?-?-?-?-?-?-?-?-?-?-?- KW- no vb/lof/ct x. good fm. NST reactive. NST FHR Rate Baby A Baseline: 140 Variability:: Moderate Accelerations:: 15 x 15 Decelerations:: None NST Reactive:: Yes FHR Category:: Category I Uterine Activity:: irregular ROS Constitutional Constitutional: Denies change in weight, fatigue, fever(s), headache(s), poor appetite or weakness Eyes Eyes: Denies blurry vision, change in vision, floaters, seeing flashes or spots in vision ENT HEENT: Denies dizziness, headache(s), loss taste/smell or sore throat Cardiovascular Cardiovascular: Denies chest pain, dizziness, dyspnea, irregular heart rhythm, lightheadedness, palpitations or rapid heart rate Respiratory/Chest Respiratory/Chest: Denies change in mental status, chest tightness, cough, dyspnea or breast pain Gastrointestinal Gastrointestinal: Denies anorexia, chewing difficulty, constipation, diarrhea or weight changes Genitourinary Genitourinary: Denies difficulty urinating, dysuria, flank pain, genital pain, urinary frequency or urinary urgency Musculoskeletal Musculoskeletal: Denies back pain, difficulty walking, extremity pain, joint pain, muscle cramps or muscle weakness Integumentary Integumentary: Denies lesions or unusual bruising Neurologic Neurologic: Denies abnormal movements, abnormal speech, dizziness, numbness, seizure-like activity, syncope or weakness Psychiatric Psychiatric: Denies behavioral changes, change in appetite, confusion, depression, homicidal ideation, suicidal ideation or suicidal thoughts Endocrine Endocrinology: Denies excessive sweating, polydipsia or polyuria Hematologic/Lymphatic Hematologic/Lymphatic: Denies anemia Allergic/Immunologic Allergic/Immunologic: Denies itchy eyes, lip swelling, throat swelling, tongue swelling or wheezing Vital Signs Vital Signs Vital Signs: 07/19/24 07:38 07/19/24 07:38 07/19/24 07:38 Temperature Pulse Rate 82 Respiratory Rate Blood Pressure 117/81 H BP Systolic 117 BP Diastolic 81 Pulse Ox 96 07/19/24 07:56 07/19/24 07:56 Temperature 98.0 F Pulse Rate Respiratory Rate 16 Blood Pressure BP Systolic BP Diastolic Pulse Ox Weight Weight: 232 lb 9.403 oz Body Mass Index (BMI) 41.2 Physical Exam Const alert, oriented x3 and no apparent distress General Appearance: cooperative Orientation / Consciousness: awake HEENT normocephalic Neck full ROM Lymph Lymphatic: no lymphadenopathy noted Chest inspection of chest normal Resp normal respiratory effort and normal air movement Effort and Inspection: able to speak in complete sentences and symmetric chest movement GI soft to palpation and non-tender Inspection: gravid Palpation: soft; Negative for tender external exam normal Back/Spine normal to inspection Extremity normal to inspection and full ROM Skin no rashes or lesions noted Psych mental status grossly normal Appearance: grossly normal Speech: normal speech Labs Labs Labs: Blood Type B POSITIVE Antibody Screen NEGATIVE Hct 33.7 % (37-47) L Hgb 11.1 g/dL (12.0-15.0) L Pap Smear Negative Obstetrics Ultrasound Syphilis Total Ab Non-reactive Rubella IgG Antibody Equiv (Nonreactive) Hep Bs Antigen Non-Reactive (Nonreactive) Hepatitis C Antibody Non-Reactive (Nonreactive) Chlamydia DNA (JET) Negative (Negative) N.gonorrhoeae DNA (JET) Negative (Negative) HIV 1&2 Antibody Non-Reactive (Nonreactive) Glucose 1 Hr 50 gm 117 mg/dL (70-140) Group B Strep DNA Negative (Negative) Rhogam given: No Miscellaneous Test Assessment & Plan (1) Encounter for induction of labor: PLAN: Patient presents IOL, plan management for with pitocin/AROM. Pain management: plans no epidural. GBS negative. Management of any complications: see list I have reviewed the [facility] and made any clinically relevant updates. Dr Barragan aware of admission, plan and assessment. agrees with above (2) UTI in : QUALIFIERS: Trimester: second trimester Qualified Code(s): O23.42 - Unspecified infection of urinary tract in , second trimester COMMENT: +UA. Culture + klebsiella. Macrobid dc'd and bactrim sent.04/05/24 rpt culture: <25,000 klebsiella. Did not treat. 04/26/24: symptomatic. Unable to come to office. Ampicillin sent. Culture next visit (3) Rubella non-immune status, antepartum: COMMENT: Equivocal- Recommend MMR . (4) Obesity affecting : QUALIFIERS: Trimester: second trimester Obesity type affecting : unspecified obesity Qualified Code(s): O99.212 - Obesity complicating , second trimester COMMENT: HgbA1c NSTs weekly starting 34 weeks. (5) Medical marijuana use: COMMENT: last used 1 month ago, informed pt of random tox screens, pt agrees (6) Supervision of high-risk : QUALIFIERS: Trimester: second trimester Qualified Code(s): O09.92 - Supervision of high risk , unspecified, second trimester COMMENT: PRR , BETSY 07/08/24, girl PC Deborah Mccartney Oli (7) : QUALIFIERS: Weeks of gestation: 38 weeks Qualified Code(s): Z3A.38 - 38 weeks gestation of COMMENT: GBS neg, normal anatomy. discussed NIPT & Carrier testing- Johanny multani did [place] blood test-girl (8) Vasovagal syncope: (9) Inclusion cyst of vulva: COMMENT: bactrim, warm soaks. (10) Anxiety: (11) Low back pain: (12) Migraine headache without aura: (13) Benign intracranial hypertension: COMMENT: sees specialist for this. ok for vaginal Charges/Coding Multi Select Codes Urinary/Genital Urinary/Genital CPT Codes: No Charge
[2024-07-19 09:02] LABS: Syphilis Antibodies Nonreactive (Nonreactive)
--- NOTE | 2024-07-19 12:01 | PN_ITS ---
Progress Note Coping well with contractions current tracing: FHT: 135 Moderate variability reactive no decelerations category I tracing [place]: 2-3 minute Contractions Membranes:AROM clear SVE:4/80/-1 A/P: Continue with position changes Titrate pitocin per protocol Epidural per anesthesia GBS neg Anticipate Dr Barragan aware of above assessment and agrees with plan of care Assessment & Plan Assessment/Plan (1) Encounter for induction of labor: (2) UTI in : QUALIFIERS: Trimester: second trimester Qualified Code(s): O23.42 - Unspecified infection of urinary tract in , second trimester (3) Rubella non-immune status, antepartum: (4) Obesity affecting : QUALIFIERS: Trimester: second trimester Obesity type affecting : unspecified obesity Qualified Code(s): O99.212 - Obesity complicating , second trimester (5) Medical marijuana use: (6) Supervision of high-risk : QUALIFIERS: Trimester: second trimester Qualified Code(s): O09.92 - Supervision of high risk , unspecified, second trimester (7) : QUALIFIERS: Weeks of gestation: 38 weeks Qualified Code(s): Z3A.38 - 38 weeks gestation of (8) Vasovagal syncope: (9) Inclusion cyst of vulva: (10) Anxiety: (11) Low back pain: (12) Migraine headache without aura: (13) Benign intracranial hypertension: Multi Select Codes Urinary/Genital Urinary/Genital CPT Codes: No Charge
[2024-07-19] MEDS: Lactated Ringers 1,000 ML 999 ML IV (12:40)
[2024-07-19] MEDS: fentaNYL-bupivacaine (epidural) 100 ML BAG EPIDURAL (13:28)
--- NOTE | 2024-07-19 16:05 | PN_ITS ---
Progress Note comfortable with epidural current tracing: FHT: 130 Moderate variability reactive no decelerations category I tracing [employer]: 2-3 minute Contractions-IUPC placed Membranes:remains clear SVE:6.5/90/-1 A/P: Continue with position changes Titrate pitocin per protocol Epidural per anesthesia GBS neg Anticipate Dr Barragan aware of above assessment and agrees with plan of care Assessment & Plan Assessment/Plan (1) Encounter for induction of labor: (2) UTI in : QUALIFIERS: Trimester: second trimester Qualified Code(s): O23.42 - Unspecified infection of urinary tract in , second trimester (3) Rubella non-immune status, antepartum: (4) Obesity affecting : QUALIFIERS: Trimester: second trimester Obesity type affecting : unspecified obesity Qualified Code(s): O99.212 - Obesity complicating , second trimester (5) Medical marijuana use: (6) Supervision of high-risk : QUALIFIERS: Trimester: second trimester Qualified Code(s): O09.92 - Supervision of high risk , unspecified, second trimester (7) : QUALIFIERS: Weeks of gestation: 38 weeks Qualified Code(s): Z3A.38 - 38 weeks gestation of (8) Vasovagal syncope: (9) Inclusion cyst of vulva: (10) Anxiety: (11) Low back pain: (12) Migraine headache without aura: (13) Benign intracranial hypertension: Multi Select Codes Urinary/Genital Urinary/Genital CPT Codes: No Charge
--- NOTE | 2024-07-19 17:41 | EX.PCM.OBVAG ---
Assessment & Plan (1) Vaginal delivery: COMMENT: KW IOL 39.0 Girl (2) Encounter for induction of labor: (3) UTI in : QUALIFIERS: Trimester: second trimester Qualified Code(s): O23.42 - Unspecified infection of urinary tract in , second trimester COMMENT: +UA. Culture + klebsiella. Macrobid dc'd and bactrim sent.04/05/24 rpt culture: <25,000 klebsiella. Did not treat. 04/26/24: symptomatic. Unable to come to office. Ampicillin sent. Culture next visit (4) Rubella non-immune status, antepartum: COMMENT: Equivocal- Recommend MMR . (5) Obesity affecting : QUALIFIERS: Trimester: second trimester Obesity type affecting : unspecified obesity Qualified Code(s): O99.212 - Obesity complicating , second trimester COMMENT: HgbA1c NSTs weekly starting 34 weeks. (6) Medical marijuana use: COMMENT: last used 1 month ago, informed pt of random tox screens, pt agrees (7) Supervision of high-risk : QUALIFIERS: Trimester: second trimester Qualified Code(s): O09.92 - Supervision of high risk , unspecified, second trimester COMMENT: PRR , BETSY 07/08/24, girl PC Deborah Mccartney Oli (8) : QUALIFIERS: Weeks of gestation: 38 weeks Qualified Code(s): Z3A.38 - 38 weeks gestation of COMMENT: GBS neg, normal anatomy. discussed NIPT & Carrier testing- Declines did [place] blood test-girl (9) Vasovagal syncope: (10) Inclusion cyst of vulva: COMMENT: bactrim, warm soaks. (11) Anxiety: (12) Low back pain: (13) Migraine headache without aura: (14) Benign intracranial hypertension: COMMENT: sees specialist for this. ok for vaginal Maternal Data Information BETSY Calculator Estimated Delivery Date Method Current WG Current Estimate 07/26/24 LMP (Certain) 39w 0d Final BETSY: 07/26/24 Final BETSY Source: US >20 weeks Gestational age: 39.0 Vaginal Delivery Maternal Presentation Maternal Presentation: Medically Indicated Induction Maternal Presentation: Presented to unit for induction of labor for obesity Type of Induction: Pitocin Medical Reason for Induction: Maternal Medical Condition: list: (obesity) Vaginal Delivery Information Procedure Performed: Spontaneous Vaginal Delivery Surgeon/Practitioner: Halina Meng Date of Procedure: 07/19/24 Pre-Procedure Diagnosis: see problem list Post-Procedure Diagnosis: same Type of anesthesia: Epidural Estimated Blood Loss: 200cc Time of Delivery: 17:25 Findings Description of procedure: Progressed well to 10cm dilated and made steady progress with effective maternal pushing. Delivered the head in DANTE presentation. The head was delivered atraumatically and a loose nuchal cord x 2 was identified and infant delivered through. The anterior and posterior shoulders delivered without complication followed by the rest of the and the was placed on the maternal abdomen. Delayed cord clamping was employed for approximately 3 minutes. Cord was clamped and cut and gentle traction was applied to the cord and the placenta delivered spontaneously. Immediately following, it was noted to be intact with a 3 vessel cord. Uterine bleeding stable. The perineum and vagina were inspected and noted to have a second degree laceration which was repaired with 3-0 Vicryl in the usual fashion. EBL was 200cc. Patient and infant tolerated delivery well. Apgars 8/9. Dr Claros notified of vaginal delivery and orders reviewed. Physician agrees with current plan of care. Presentation: Vertex Amniotic Membrane Rupture Type: Artificial Amniotic Fluid Description: Clear Placental Delivery Description: Spontaneous Placenta Disposition: [facility] Specimen collected: No Cord Vessel Description: 3 Vessels Cord Entanglement: Around neck x 2, loose (1 minute): 8 (5 minute): 9 Delayed Cord Clamping: Yes Supervisor Soakers kindergartners helper: No Post Vaginal Deli Medications given after delivery: IV Pitocin Episiotomy Description: None Laceration: 2nd degree Complication Complications: No Multi Select Codes Urinary/Genital Urinary/Genital CPT Codes: 88701 Vaginal Delivery+ PP Care([facility])
--- NOTE | 2024-07-19 17:45 | DCINST_ITS ---
Discharge Instructions Diet Discharge Diet: No restrictions DC O2, CPAP, BIPAP needs Home O2 Discharge instructions: No Dressing / Incision Discharge Activity: Return to Normal Activity May resume sexual activity in: 6-8 weeks Dressing / Incision Call your doctor if you observe: Fever of 101 or Higher, Coldness, Increased Pain, Numbness or Tingling, Change in Color, Inability to urinate, Inability to have a bowel movement, Using more than 1 pad per hour, Shortness of breath, Dizziness, Fainting spells, Swelling in the ankles, Chest pain, Increased p alpitations (irregular heartbeat), Calf discomfort and Uncontrolled pain Follow Up Care Please Follow Up With: Halina Meng CNM When: Please call the office to schedule your follow up appointment in 6 weeks. If you had high blood pressure please call to schedule an appointment in 2 weeks. Test Results: Test results from this visit will be discussed in further detail at your follow- up appointment, if applicable. Discharge Plan Admission Admit Date/Time: 07/19/24 07:35 Attending Provider: Halina Meng Primary Care Provider: Elzbieta Deal Discharge Orders/Prescriptions Prescriptions: No Action pyridoxine (vitamin B6) 25 mg tablet 12.5 mg PO BID PNV [id number] 180 mcg-35 mg- 25 mg-5 mg tablet,chewable PO Referrals / Follow Up: Elzbieta Deal MD [Primary Care Provider] -
[2024-07-19] MEDS: Oxytocin 15 Units/NS 250ml 15 UNITS/250 ML IV.SOLN 83 UNITS IV (17:50)
[2024-07-19] MEDS: Acetaminophen 500 MG Tablet 1000 MG PO (23:23)
[2024-07-20] MEDS: Acetaminophen 500 MG Tablet 1000 MG PO ×2 (06:29→18:16)
[2024-07-20 06:31] VITALS: BP 128/86; PULSE 79; RESP 16; TEMP 36.4; O2SAT 98
--- NOTE | 2024-07-20 07:47 | PN.OBGYN_ITS ---
Subjective Subjective Patient doing well without complaints. Tolerating PO. Ambulating and voiding without difficulty. feeding well. Denies chest pain, shortness of breath, calf pain/swelling, fevers, chills, lightheadedness. Objective Data Objective Data Vital Signs: Vital Signs Temp Pulse Resp BP Pulse Ox O2 Del Method 97.5 F L 79 16 128/86 H 98 Room Air 07/20/24 06:31 07/20/24 06:31 07/20/24 06:31 07/20/24 06:31 07/20/24 06:31 07/20/24 06:31 Oxygen Delivery Method Room Air Weight: 232 lb 9.403 oz Body Mass Index (BMI) 41.2 Intake & Output: Intake and Output for Last 24 Hours 07/18/24 07/19/24 07/20/24 23:59 23:59 23:59 Intake Total 2340.47 / 2340.47 Output Total 900 / 900 350 / 350 Balance 1440.47 / 1440.47 -350 / -350 Lab / Micro Data 07/19/24 08:00 Labs: Laboratory Results - last 24 hr 07/19/24 08:00: WBC 11.2 H, RBC 4.35, Hgb 11.1 L, Hct 33.7 L, MCV 77.5 L, MCH 25.5 L, MCHC 32.9, RDW Std Deviation 38.6, RDW Coeff of Bertram 13.7, Plt Count 182, MPV 11.1, Immature Gran % (Auto) 0.600, Neut % (Auto) 76.3 H, Lymph % (Auto) 15.9 L, [place] % (Auto) 6.3, Eos % (Auto) 0.6, Baso % (Auto) 0.3, Absolute Neuts (auto) 8.5 H, Absolute Lymphs (auto) 1.78, Nucleated RBC % 0, Syphilis Total Ab Nonreactive, Blood Type B POSITIVE, Antibody Screen NEGATIVE ROS Constitutional Constitutional: Reports systems reviewed and no addt'l complaints, except as documented Cardiovascular Cardiovascular: Reports systems reviewed and no addt'l complaints, except as documented Respiratory/Chest Respiratory/Chest: Reports systems reviewed and no addt'l complaints, except as documented Gastrointestinal Gastrointestinal: Reports systems reviewed and no addt'l complaints, except as documented Physical Exam Const alert, oriented x3 and no apparent distress HEENT Head and Scalp: atraumatic Resp normal respiratory effort GI soft to palpation and non-tender Bimanual Exam - Vag & Uterus: uterus non-tender Uterus Palpation: uterus fundus firm (below Umbilicus) Assessment & Plan (1) Vaginal delivery: COMMENT: KW IOL 39.0 Girl PLAN: Plan s/p PPD # 1 1. routine post delivery care 2. breast feeding- support given 3. rh positive 4. rubella immune
[2024-07-20] MEDS: Benzocaine/Lanolin/Aloe Vera 85 GM Spray 1 SPRAY TOPICAL (09:01)
[2024-07-20] MEDS: MEASLES,MUMPS,RUBELLA VACC/PF 0.5 ML SC (09:11)
[2024-07-20 10:10] VITALS: BP 110/60; PULSE 91; RESP 16; TEMP 36.4; O2SAT 98
[2024-07-20 14:51] VITALS: BP 136/8; PULSE 88; RESP 16; O2SAT 98
[2024-07-20 19:41] VITALS: BP 112/63; PULSE 80; RESP 16; TEMP 36.4; O2SAT 98
[2024-07-21 02:54] VITALS: BP 110/78; PULSE 89; RESP 16; TEMP 36.1; O2SAT 100
[2024-07-21] MEDS: Acetaminophen 500 MG Tablet 1000 MG PO ×2 (02:57→09:16)
[2024-07-21 07:53] VITALS: BP 127/84; PULSE 97; RESP 17; TEMP 36.4; O2SAT 99
--- NOTE | 2024-07-21 07:56 | PCM.PN.OB ---
Subjective Subjective Patient doing well without complaints. Tolerating PO. Ambulating and voiding without difficulty. Denies chest pain, shortness of breath, calf pain/swelling, fevers, chills, lightheadedness. Baby SCN:small cleft palate. Bottle and feeding tube. Objective Data Objective Data Vital Signs: Vital Signs Temp Pulse Resp BP Pulse Ox O2 Del Method 97.6 F L 97 17 127/84 H 99 Room Air 07/21/24 07:53 07/21/24 07:53 07/21/24 07:53 07/21/24 07:53 07/21/24 07:53 07/21/24 07:53 Oxygen Delivery Method Room Air Weight: 232 lb 9.403 oz Body Mass Index (BMI) 41.2 Intake & Output: Intake and Output for Last 24 Hours 07/19/24 07/20/24 07/21/24 23:59 23:59 23:59 Intake Total 2340.47 / 2340.47 Output Total 900 / 900 350 / 350 Balance 1440.47 / 1440.47 -350 / -350 Lab / Micro Data 07/19/24 08:00 Physical Exam Const alert and oriented x3 HEENT normocephalic Eyes PERRL Neck full ROM Resp normal respiratory effort GI soft to palpation GI Narrative: FF below U Assessment & Plan (1) Vaginal delivery: COMMENT: KW IOL 39.0 Girl Adalynn. Sm posterior cleft palate. (2) Rubella non-immune status, antepartum: COMMENT: Equivocal- Recommend MMR /given. PLAN: Plan s/p PPD # 2 1. routine post delivery care 2. breast feeding- support given 3. rh positive 4. rubella nonimmune-MMR given 5. hotel status today
--- NOTE | 2024-07-21 10:36 | CASEMGMT ---
Social Work Assessment Labor and Delivery Unit Patient Address: [address] [place] [address] Phone number: [phone] Date of Referral: 07/20/24 Time of Referral:? 829 Referred By:Halina Meng Date of Intervention: ??07/20/24 Time of Intervention:? 1229 Reason for Referral:? SDOH Baby admitted to [facility] Sw completed chart review and acknowledges social work consult. Sw presented to bedside and introduced self to mother of baby (MOB- Nevaeh) and father of baby (FOB- Oli). Sw explained reason for sw involvement and completed psychosocial assessment. History obtained from: medical records, MOB and FOB. Household composition: Currently residing in the residence is MOB and FOB. Parents deny any problems or concerns with housing stating that their home is safe and secure. Patient's parent/guardian status:? MOB and FOB have been together for two years after being introduced to each other by family members. NO concerns reported of domestic violence or intimate partner violence. This is first baby for FOB and second for MOB. ? Medical History: ?MATTHEW is 28 year old female who is 2, para 1- now 2 following labor and delivery of . MATTHEW received routine care during with [facility]. MATTHEW presented to [facility] for induction of labor. MOB delivered baby via vaginal delivery at 39 weeks gestation on 07/19/24. Baby girl, named Carlos Calero, was born weighing 7lb 5oz with apgars of 8 and 9 at one and five minutes of life, respectfully. Baby was transferred to [facility] due to having an unknown cleft palate. MOB states that she did not know about baby's cleft palate prenatally. MOB states that she is working on pumping in order to provide breast milk for baby. Baby will be followed by Dr. Cedeno for pediatrics. Educational Status:? Both parents graduated from high school and did not pursue advanced education. No problems with reading, learning or comprehension. 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 FOB states that he was also previously employed at [employer] but was let go due to their work slowing down. FOB states that he is working on seeking new employment. Infant Supplies: All necessary baby supplies obtained, including: car seat, safe sleep space, clothes, diapers and wipes. Childcare/Caregiver(s):? When MATTHEW has to return to work FOAlex may be able to watch baby. 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 Transportation:?? Both parents have their drivers license and reliable means of transportation. Programs/Agencies Involved: ???Parents are not connected to any community resources that assist them financially. Children Services/Legal Issues:??? No prior involvement with children services, no issues or concerns warranting referral to be made at this time. Behavioral Health Issues: ??Mental Health History:??FOAlex denies mental health history. MATTHEW states that she has history of anxiety, but reports that her anxiety was managed prior to and during . MOB states that she is not prescribed any medications ? Substance Use History:?MOB states that she used marijuana prior to , and when she learned that she was she stopped using. MOB states that now that baby is here and she is providing breast milk she does not have any intentions to use marijuana. ? Family History:??Parents deny family history of substance use or significant mental health diagnoses. ??? Drug Screens: MATTHEW's urine drug screen at time of delivery was negative for all substances. Family/Social Stressors:?Parents state that Diana unemployment has been slightly stressful, from a financial standpoint. FRED states that he is continuing to look for employment and has several upcoming interviews Support Systems: MATTHEW states that her parents and paternal grandma and sister are her biggest supports at this time. Depression/Shaken Baby/Safe Sleeping: Osman educated parents on signs and symptoms of baby blues and depression. MATTHEW states that she feels familiar with signs and symptoms to be mindful of. Osman explained to MATTHEW that since baby is admitted to [facility] she may experience some emotional highs and lows. MOB and FOB express understanding. FOB states that if MOB were to struggle with her mental health he would be able to recognize that and would know how to help and support her. Sw educated parents on shaken baby prevention and ABCs of safe sleep. Parents express understanding. ASSESSMENT:? MOB and baby admitted following labor and delivery. Baby required transfer to [facility] due to cleft palate, that was unknown prenatally. Parents were open and talkative with sw throughout completion of psychosocial assessment. MATTHEW acknowledges her mental health history and states that she feels much more prepared for this experience than she was the first time. Parents have obtained all necessary baby supplies and have natural supports in place. Parents appear to be comfortable and attentive to conversation while meeting with sw. Conversation flowed naturally and parents were receptive to resources and support. PLAN:?? No other services requested or indicated. MOB and baby to be discharged when medically ready. Parents were provided literature regarding: signs and symptoms of baby blues and mood and anxiety disorders, Help Me Grow, shaken baby prevention, ABCs of safe sleep and a list of [facility] resources that are available for them should any needs present themselves. Que Dow, COMPENSATION ADMINISTRATOR, SCHOOL AIDE
--- NOTE | 2024-07-28 15:00 | NURSING ---
Patient is still in SCN with daughter. Patient is doing well and denies any problems. States her bleeding is minimal and denies any pain. Denies any questions or concerns at this time.
== END 2024-07-21 13:30 | disposition home or self-care (01) | DRG 560 ==
PROVIDERS: Admitting Provider Advanced Practice Midwife; PCP Internal Medicine; Referring Provider Advanced Practice Midwife; Visit Provider Advanced Practice Midwife
DX: O99.214 Obesity complicating childbirth (principal); Z37.0 Single live birth; O99.354 Diseases of the nervous system complicating childbirth; G93.2 Benign intracranial hypertension; G43.009 Migraine without aura, not intractable, without status migrainosus; F41.9 Anxiety disorder, unspecified; O69.81X0 Labor and delivery complicated by cord around neck, without compression, not applicable or unspecified; O99.344 Other mental disorders complicating childbirth; O70.1 Second degree perineal laceration during delivery; Z3A.39 39 weeks gestation of pregnancy; Z79.899 Other long term (current) drug therapy; Z28.39 Other underimmunization status
CPT/HCPCS: 59025; 59050; 85025; 86780; 86850; 86900; 86901; 99221; G0378